=== PATIENT | male | born 1975 | race Caucasian/White ===

== ENCOUNTER 2023-04-19 15:49 | Observation (INO) | payer OTHER ==
--- OUTSIDE RECORDS SUMMARY | 2023-04-19 15:54 | XMS REPORT | Continuity of Care Document ---
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 n 80 mg tablet 2-0 824 00:00: 00 Yes [id number] 80mg Take 1 tablet by mouth at bedtime. [facility] clopidogreL 75 mg tablet 2-0 8-24 00:00: 00 Yes [id number] 9102 75mg Take 1 tablet by mouth in the morning. [facility] atorvastati n 80 mg tablet 2-0 824 00:00: 00 Yes [id number] 80mg Take 1 tablet by mouth at bedtime. [facility] clopidogreL 75 mg tablet 2-0 824 00:00: 00 Yes [id number] 9102 75mg Take 1 tablet by mouth in the morning. [facility] atorvastati n 80 mg tablet 2021-0 824 00:00: 00 Yes [id number] 80mg Take 1 tablet by mouth at bedtime. [facility] clopidogreL 75 mg tablet 2-0 824 00:00: 00 Yes [id number] 9102 75mg Take 1 tablet by mouth in the morning. [facility] atorvastati n 80 mg tablet 2-0 824 00:00: 00 Yes [id number] 80mg Take 1 tablet by mouth at bedtime. [facility] clopidogreL 75 mg tablet 2-0 824 00:00: 00 12-28 00:00 :00 No [id number] 9102 75mg Take 1 tablet by mouth in the morning. [facility] atorvastati n 80 mg tablet 2-0 824 00:00: 00 12-28 00:00 :00 No [id number] 80mg Take 1 tablet by mouth at bedtime. [facility] clopidogreL 75 mg tablet 2-0 824 00:00: 00 12-28 00:00 :00 No [id number] 9102 75mg Take 1 tablet by mouth in the morning. [facility] atorvastati n 80 mg tablet 2-0 824 00:00: 00 12-28 00:00 :00 No [id number] 80mg Take 1 tablet by mouth at bedtime. [facility] metoprolol tartrate 75 mg Tab 8-24 00:00: 00 11-09 00:00 :00 No [id number] 9102 75mg Take 75 mg by mouth 2 (two) times daily. [facility] clopidogreL 75 mg tablet 7-25 00:00: 00 11-11 00:00 :00 No [id number] 9102 75mg Take 1 tablet by mouth in the morning. [facility] clopidogreL 75 mg tablet 7-25 00:00: 00 11-11 00:00 :00 No [id number] 9102 75mg Take 1 tablet by mouth in the morning. [facility] metoprolol tartrate 75 mg Tab 3-24 00:00: 00 11-11 00:00 :00 No [id number] 9102 75mg Take 75 mg by mouth 2 (two) times daily. [facility] metoprolol tartrate 75 mg Tab 3-24 00:00: 00 11-11 00:00 :00 No [id number] 9102 75mg Take 75 mg by mouth 2 (two) times daily. [facility] warfarin 10 mg tablet 12-10 00:00: 00 Yes [id number] 9102 10mg Take 1 tablet by mouth every evening. [facility] warfarin 10 mg tablet 12-10 00:00: 00 Yes [id number] [id number] 10mg Take 1 tablet by mouth every evening. [facility] warfarin 10 mg tablet 12-10 00:00: 00 Yes [id number] 9102 10mg Take 1 tablet by mouth every evening. [facility] warfarin 10 mg tablet 12-10 00:00: 00 12-09 00:00 :00 No [id number] 9102 10mg Take 1 tablet by mouth every evening. [facility] atorvastati n 80 mg tablet 12-08 00:00: 00 11-11 00:00 :00 No [id number] 80mg Take 1 tablet by mouth at bedtime. [facility] atorvastati n 80 mg tablet 920 00:00: 00 11-11 00:00 :00 No [id number] 80mg Take 1 tablet by mouth at bedtime. [facility] nitroglycer in 0.4 mg sublingual tablet 10-14 00:00: [id number] 1 tablet under the tongue every 5 (five) minutes as needed for Chest pain. [facility] nitroglycer in 0.4 mg sublingual tablet 10-14 00:00: [id number] 1 tablet under the tongue every 5 (five) minutes as needed for Chest pain. [facility] nitroglycer in 0.4 mg sublingual tablet 10-14 00:00: [id number] 1 tablet under the tongue every 5 (five) minutes as needed for Chest pain. [facility] nitroglycer in 0.4 mg sublingual tablet 10-14 00:00: [id number] 1 tablet under the tongue every 5 (five) minutes as needed for Chest pain. [facility] nitroglycer in 0.4 mg sublingual tablet 10-14 00:00: [id number] 1 tablet under the tongue every 5 (five) minutes as needed for Chest pain. [facility] nitroglycer in 0.4 mg sublingual tablet 10-14 00:00: [id number] 1 tablet under the tongue every 5 (five) minutes as needed for Chest pain. [facility] nitroglycer in 0.4 mg sublingual tablet 10-14 00:00: [id number] 1 tablet under the tongue every 5 (five) minutes as needed for Chest pain. [facility] nitroglycer in 0.4 mg sublingual tablet 10-14 00:00: [id number] 1 tablet under the tongue every 5 (five) minutes as needed for Chest pain. [facility] nitroglycer in 0.4 mg sublingual tablet 10-14 00:00: [id number] 1 tablet under the tongue every 5 (five) minutes as needed for Chest pain. [facility] nitroglycer in 0.4 mg sublingual tablet 10-14 00:00: [id number] 1 tablet under the tongue every 5 (five) minutes as needed for Chest pain. [facility] nitroglycer in 0.4 mg sublingual tablet 10-14 00:00: [id number] 1 tablet under the tongue every 5 (five) minutes as needed for Chest pain. [facility] nitroglycer in 0.4 mg sublingual tablet 10-14 00:00: [id number] 1 tablet under the tongue every 5 (five) minutes as needed for Chest pain. [facility] nitroglycer in 0.4 mg sublingual tablet 10-14 00:00: [id number] 1 tablet under the tongue every 5 (five) minutes as needed for Chest pain. [facility] nitroglycer in 0.4 mg sublingual tablet 10-14 00:00: [id number] 1 tablet under the tongue every 5 (five) minutes as needed for Chest pain. [facility] nitroglycer in 0.4 mg sublingual tablet 10-14 00:00: [id number] 1 tablet under the tongue every 5 (five) minutes as needed for Chest pain. [facility] nitroglycer in 0.4 mg sublingual tablet 10-14 00:00: [id number] 1 tablet under the tongue every 5 (five) minutes as needed for Chest pain. [facility] nitroglycer in 0.4 mg sublingual tablet 10-14 00:00: [id number] 1 tablet under the tongue every 5 (five) minutes as needed for Chest pain. [facility] nitroglycer in 0.4 mg sublingual tablet 10-14 00:00: [id number] 1 tablet under the tongue every 5 (five) minutes as needed for Chest pain. [facility] nitroglycer in 0.4 mg sublingual tablet 10-14 00:00: [id number] 1 tablet under the tongue every 5 (five) minutes as needed for Chest pain. [facility] nitroglycer in 0.4 mg sublingual tablet 10-14 00:00: [id number] 1 tablet under the tongue every 5 (five) minutes as needed for Chest pain. [facility] Immunizations Ordered Immunization Name Filled Immunization Name Date Status Comments Source Influenza Virus Vaccine Unknown Completed [facility] Influenza Virus Vaccine Unknown Completed [facility] Vital Signs Vital Name Observation Time Observation Value Comments S ource Systolic blood pressure 2022-12-28 20:49:00 115 mm[Hg] [facility] Diastolic blood pressure 2022-12-28 20:49:00 64 mm[Hg] [facility] Heart rate 2022-12-28 20:49:00 74 /min [facility] acute hospital Respiratory rate 2022-12-28 20:49:00 20 /min [facility] Body height 2022-12-28 20:49:00 188 cm [facility] Body weight 2022-12-28 20:49:00 110.133 kg [facility] BMI 2022-12-28 20:49:00 31.17 kg/m2 [facility] Oxygen saturation in Arterial blood by Pulse oximetry 2022-12-28 20:49:00 94 /min [facility] Systolic blood pressure 2022-11-09 21:24:00 119 mm[Hg] [facility] Diastolic blood pressure 2022-11-09 21:24:00 75 mm[Hg] [facility] Heart rate 2022-11-09 21:24:00 58 /min [facility] acute hospital Body temperature 2022-11-09 21:24:00 36.22 [facility] Respiratory rate 2022-11-09 21:24:00 16 /min [facility] Oxygen saturation in Arterial blood by Pulse oximetry 2022-11-09 21:24:00 96 /min [facility] Body weight 2022-11-09 09:19:00 106.459 kg [facility] BMI 2022-11-09 09:19:00 30.13 kg/m2 [facility] Body height 2022-11-08 22:23:00 188 cm [facility] Systolic blood pressure 2022-04-28 21:58:00 130 mm[Hg] [facility] Diastolic blood pressure 2022-04-28 21:58:00 86 mm[Hg] [facility] Heart rate 2022-04-28 21:58:00 72 /min [facility] Body temperature 2022-04-28 21:58:00 36.5 [facility] Respiratory rate 2022-04-28 21:58:00 17 /min [facility] Body height 2022-04-28 21:58:00 188 cm [facility] Body weight 2022-04-28 21:58:00 108.863 kg [facility] BMI 2022-04-28 21:58:00 30.81 kg/m2 [facility] Oxygen saturation in Arterial blood by Pulse oximetry 2022-04-28 21:58:00 94 /min [facility] Systolic blood pressure 2022-01-05 16:56:00 129 mm[Hg] [facility] Diastolic blood pressure 2022-01-05 16:56:00 86 mm[Hg] [facility] Heart rate 2022-01-05 16:56:00 69 /min [facility] Body temperature 2022-01-05 16:56:00 36.22 [facility] Respiratory rate 2022-01-05 16:56:00 18 /min [facility] Oxygen saturation in Arterial blood by Pulse oximetry 2022-01-05 16:56:00 94 /min [facility] Body weight 2022-01-05 09:15:00 110.995 kg [facility] BMI 2022-01-05 09:15:00 31.42 kg/m2 [facility] Body height 2022-01-05 02:13:00 188 cm [facility] Systolic blood pressure 2021-11-11 18:42:00 120 mm[Hg] [facility] Diastolic blood pressure 2021-11-11 18:42:00 81 mm[Hg] [facility] Heart rate 2021-11-11 18:42:00 60 /min [facility] acute hospital Body height 2021-11-11 18:42:00 188 cm [facility] Body weight 2021-11-11 18:42:00 112.492 kg [facility] BMI 2021-11-11 18:42:00 31.84 kg/m2 [facility] Oxygen saturation in Arterial blood by Pulse oximetry 2021-11-11 18:42:00 96 /min [facility] Procedures Procedure Date / Time Performed Performing Clinician Source CONSENT/REFUSAL FOR DIAGNOSIS AND TREATMENT 2022-12-28 20:24:37 Doctor Unassigned, [place] [facility] INSURANCE CORRESPONDENCE 2022-12-10 05:01:00 Doc tor Unassigned, [place] [facility] TRANSTHORACIC ECHO (TTE) COMPLETE W/ CONTRAST 2022-11-09 19:48:14 Maritza Oakley [facility] HB ECG ROUTINE & RHYTHM STRIP 2022-11-09 03:34:45 Neto Lombardo [facility] TROPONIN I 2022-11-09 03:28:00 Neto Lombardo [facility] THYROID STIMULATING HORMONE 2022-11-09 03:28:00 Maritza Oakley [facility] XR CHEST 1 VW 2022-11-08 23:04:00 Arvin Medina [facility] LIPASE 2022-11-08 22:56:00 [facility] TROPONIN I 2022-11-08 22:56:00 [facility] COMP. METABOLIC PANEL (30680) 2022-11-08 22:56:00 Arvin Medina [facility] CBC WITH DIFF 2022-11-08 22:56:00 Arvin Medina [facility] PROTHROMBIN TIME / INR 2022-11-08 22:56:00 Kranthi Medina [facility] ACTIVATED PARTIAL THRMPLAS MICHELLE 2022-11-08 22:56:00 Arvin Medina [facility] CONSENT/REFUSAL FOR DIAGNOSIS AND TREATMENT 2022-11-08 22:19:51 Doctor Unassigned, [place] [facility] CAROTID DUPLEX BILATERAL - BY VASCULAR LAB 2022-01-05 20:02:00 Brittany Ni [facility] MAGNESIUM 2022-01-05 10:08:00 [facility] TROPONIN I 2022-01-05 10:08:00 Brittany Ni [facility] BASIC METABOLIC PANEL (NA, K, CL, CO2, GLUCOSE, BUN, CREATININE, CA) 2022-01-05 10:08:00 Brittany Ni [facility] PHOSPHORUS 2022-01-05 02:30:00 Britt[facility] TROPONIN I 2022-01-05 02:30:00 Brittany Ni [facility] acute hospital EKG-12 LEAD 2022-01-05 01:43:31 Latonya Gilliland [facility] XR CHEST 2 VW 2022-01-04 23:13:28 Latonya Gilliland [facility] TROPONIN I 2022-01-04 22:57:00 Latonya Gilliland [facility] COMP. METABOLIC PANEL ([id number]) 2022-01-04 22:57:00 Latonya Gilliland [facility] CBC WITH DIFF 2022-01-04 22:57:[address] [facility] PROTHROMBIN TIME / INR 2022-01-04 22:57:00 Karley Gilliland [facility] URINALYSIS 2022-01-04 22:57:00 Latonya Gilliland [facility] N-TERMINAL PRO-BNP 2022-01-04 22:57:00 Melia Gilliland [facility] URINE DRUG (IMMUNOASSAY) - COMPREHENSIVE DRUG SCREEN W/O REFLEX 2022-01-04 22:57:00 Latonya Gilliland [facility] CONSENT/REFUSAL FOR DIAGNOSIS AND TREATMENT 2022-01-04 22:28:14 Doctor Unassigned, [place] [facility] Encounters Start Date/Time End Date/Time Encounter Type Admission Type Attending [facility] Care Department Encounter ID Source 2021-01-20 08:46:57 Emergency [facility] [id number] [facility] 2021-01-19 12:13:08 Emergency [facility] [id number] [facility] 2021-01-19 10:30:46 Emergency [facility] [id number] [facility] 2023-03-30 15:40:00 2023-03-30 15:40:00 Outpatient R RICHARD [facility] [id number] [facility] 2022-12-28 15:40:00 2022-12-28 16:04:16 Outpatient R RICHARD [facility] [id number] [facility] 2022-12-28 15:40:00 2022-12-28 16:04:16 Office Visit Richard [facility] 1..840.114 350.1.13.10 4.2.7.2.686 [id number] [facility] 2022-12-28 00:00:00 2022-12-28 00:00:00 Orders Only Doctor Unassigned, [place] [facility] 1..840.114 350.1.13.10 4.2.7.2.686 [id number] [facility] 2022-12-21 13:00:00 2022-12-21 13:00:00 [id number] 2022-12-14 14:30:00 2022-12-14 14:30:00 Outpatient R RICHARD [facility] [id number] [facility] 2022-12-10 00:00:00 2022-12-10 00:00:00 Orders Only Doctor Unassigned, [place] [facility] 1.2.840.114 350.1.13.10 4.2.7.2.686 [id number] [facility] 2022-12-02 00:00:00 2022-12-02 00:00:00 [facility] [id number] [facility] 2022-11-29 00:00:00 2022-11-29 00:00:00 Refill Richard [facility] 1.2.840.114 350.1.13.10 4.2.7.2.686 [id number] [facility] 2022-11-18 00:00:00 2022-11-18 00:00:00 Telephone Richard [facility] 1.2.840.114 350.1.13.10 4.2.7.2.686 [id number] [facility] 2022-11-10 00:00:00 2022-11-10 00:00:00 Patient Secure Msg Doctor Unassigned, [place] [facility] 1.2840.114 350.1.13.10 4.2.7.2.686 [id number] [facility] 2022-11-08 17:26:00 2022-11-09 18:31:00 Outpatient X ALEISHA MCELROY [facility] [id number] [facility] 2022-11-08 17:26:00 2022-11-09 18:31:[address] [facility] 1.2.840.114 350.1.13.10 4.2.7.2.686 [id number] [facility] 2022-06-02 00:00:00 2022-06-02 00:00:00 [facility] 1..840.114 350.1.13.10 4.2.7.2.686 [id number] [facility] 2022-04-28 16:00:00 2022-04-28 16:07:17 Outpatient R KIKO MATUTE [facility] [id number] [facility] 2022-04-28 16:00:00 2022-04-28 16:07:17 Urgent Care Kiko Matute Unknown, Attending [facility]?ASHWINIKarime [facility] 1..840.114 350.1.13.10 4.2.7.2.686 [id number] [facility] 2022-02-16 15:20:00 2022-02-16 15:20:00 [facility] [id number] 2022-02-16 15:20:00 2022-02-16 15:20:00 [facility] [id number] [facility] 2022-01-26 14:30:00 2022-01-26 14:30:00 Outpatient R HIEN LOVETT [facility] [id number] [facility] 2022-01-04 17:38:00 2022-01-05 17:51:00 Outpatient X BRITTANY NI [facility] [id number] [facility] 2022-01-04 17:38:00 2022-01-05 17:51:00 Emergency Latonya Gilliland Yaman [facility] 1..840.114 350.1.13.10 4.2.7.2.686 [id number] [facility] 2021-12-09 00:00:00 2021-12-09 00:00:00 Telephone Richard, [facility] 1..840.114 350.1.13.10 4.2.7.2.686 [id number] [facility] 2021-11-26 00:00:00 2021-11-26 00:00:00 Telephone Richard [facility] 1..840.114 350.1.13.10 4.2.7.2.686 [id number] [facility] 2021-11-19 15:44:58 2021-11-19 23:59:00 Outpatient R RICHARD [facility] [id number] [facility] 2021-11-19 16:00:00 2021-11-19 16:00:00 Outpatient R RICHARD [facility] [id number] [facility] 2021-11-11 14:45:00 2021-11-11 15:00:00 Insolvency Consultant Visit 2, Adc Lab Richard [facility] 1..840.114 350.1.13.10 4.2.7.2.686 [id number] [facility] 2021-11-11 13:40:00 2021-11-11 14:10:06 Outpatient R RICHARD [facility] [id number] [facility] 2021-11-11 13:40:00 2021-11-11 14:10:06 Office Visit Richard [facility] 1..840.114 350.1.13.10 4.2.7.2.686 [id number] [facility] 2021-11-11 09:00:00 2021-11-11 09:15:00 Insolvency Consultant Visit Lab, [facility] 1.2.84.114 350.1.13.10 4.2.7.2.686 [id number] [facility] 2021-11-11 09:00:00 2021-11-11 09:00:00 Outpatient HIEN DAVIES [facility] [id number] [facility] 2021-11-11 08:30:00 2021-11-11 08:51:49 Office Visit Hien Lovett [facility]?LUCIA [facility] 1.84114 350.1.13.10 4.2.7.2.686 [id number] [facility] 2021-11-11 08:30:00 2021-11-11 08:51:49 Outpatient R HIEN LOVETT [facility] [id number] [facility] 2021-11-11 00:00:00 2021-11-11 00:00:00 Orders Only Doctor Unassigned, [place] [facility] 1..114 350.1.13.10 4.2.7.2.686 [id number] [facility] 2021-10-12 00:00:00 2021-10-12 00:00:00 Refill Hien Lovett [facility]IA [facility] 1.84.114 350.1.13.10 4.2.7.2.686 [id number] [facility] 2021-09-16 12:56:00 2021-09-16 15:17:00 Emergency X OREN CALDERA [facility] E[facility] [id number] [facility] 2021-09-16 12:56:00 2021-09-16 15:17:00 Emergency Maritza Callejas Phillip [facility] 1..114 350.1.13.10 4.2.7.2.686 [id number] [facility] 2021-09-16 00:00:00 2021-09-16 00:00:00 Orders Only Doctor Unassigned, [place] [facility] 1.20.114 350.1.13.10 4.2.7.2.686 [id number] [facility] 2021-08-24 00:00:00 2021-08-24 00:00:00 Patient Secure Msg Doctor Unassigned, [place] [facility] 1.2.114 350.1.13.10 4.2.7.2.686 [id number] [facility] 2021-08-22 18:15:00 2021-08-22 21:56:00 Emergency X KULDIP CORONA [facility] ERT [id number] [facility] 2021-08-22 18:15:00 2021-08-22 21:56:00 Emergency Kuldip Corona B [facility] 1.114 350.1.13.10 4.2.7.2.686 [id number] [facility] 2021-06-11 00:00:00 2021-06-11 00:00:00 Patient Secure Msg [facility] Unassigned, [place] [facility] 1.84.114 350.1.13.10 4.2.7.2.686 [id number] [facility] 2021-06-05 00:00:00 2021-06-05 00:00:00 Refill Darlene Palafox [facility] 1.84.114 350.1.13.10 4.2.7.2.686 [id number] [facility] 2021-04-13 00:00:00 2021-04-13 00:00:00 Telephone [facility] [facility] 1.2840.114 350.1.13.10 4.2.7.2.686 [id number] 044 [id number] [facility] 2021-03-25 00:00:00 2021-03-25 00:00:00 Refill Darlene Palafox [facility] MEDICAL OFFICE BUILDING 1.0.114 350.1.13.10 4.2.7.2.686 [id number] [id number] [facility] 2021-01-09 02:47:00 2021-01-09 05:03:00 Emergency Oren [facility] 1.2.114 350.1.13.10 4.2.7.2.686 [id number] [id number] [facility] 2021-01-09 00:00:00 2021-01-09 00:00:00 Orders Only Doctor Unassigned, [place] [facility] 1.840.114 350.1.13.10 4.2.7.2.686 [id number] [id number] [facility] 2020-12-08 15:04:21 2020-12-08 15:19:21 Insolvency Consultant Visit Lab, Klaus - [facility]osh [facility] Medical Office Building 1.114 350.1.13.10 4.2.7.2.686 [id number] [facility] 2020-12-08 14:20:35 2020-12-08 15:04:33 Office Visit Clarisa [facility] Flo?[facility] Medical Office Building 1.2.114 350.1.13.10 4.2.7.2.686 [id number] [facility] 2020-12-08 14:30:00 2020-12-08 14:30:00 Outpatient R GEOFFREY MCKENNA [facility] [id number] [facility] 2020-11-26 00:00:00 2020-11-26 00:00:00 Hien Springer [facility] Luly manzano Medical Office Building 1.84.114 350.1.13.10 4.2.7.2.686 [id number] [facility] 2020-11-25 10:00:00 2020-11-25 10:00:00 Outpatient GISELA GARCÍA [facility] [id number] [facility] 2020-11-22 12:00:00 2020-11-22 12:00:00 Outpatient HIEN DAVIES [facility] [id number] [facility] 2020-11-22 09:47:33 2020-11-22 10:02:33 Insolvency Consultant Visit Po, Adc Lab [facility] 1.84114 350.1.13.10 4.2.7.2.686 [id number] [facility] 2020-11-22 09:47:33 2020-11-22 10:02:33 Insolvency Consultant Visit Po, Adc Lab [facility] 1.114 350.1.13.10 4.2.7.2.686 [id number] [facility] 2020-11-22 00:00:00 2020-11-22 00:00:00 Orders Only Doctor Unassigned, [place] [facility] 1.114 350.1.13.10 4.2.7.2.686 [id number] [id number] [facility] 2020-11-22 00:00:00 2020-11-22 00:00:00 Orders Only Doctor Unassigned, [place] [facility] 1.114 350.1.13.10 4.2.7.2.686 [id number] [facility] 2020-11-21 15:48:30 2020-11-21 16:03:30 Insolvency Consultant Visit Lab, Hien Goldman [facility] Luly manzano Medical Office Building 1.2840.114 350.1.13.10 4.2.7.2.686 [id number] [facility] 2020-11-21 16:00:00 2020-11-21 15:59:00 Outpatient Christopher LOVETT HIEN [facility] [id number] [facility] 2020-11-20 00:00:00 2020-11-20 00:00:00 Telephone Radhika Darlene Schaffer [facility] Office Building One 1.84.114 350.1.13.10 4.2.7.2.686 [id number] [facility] 2020-11-20 00:00:00 2020-11-20 00:00:00 Telephone Radhika Darlene Schaffer [facility] Office Building One 1..114 350.1.13.10 4.2.7.2.686 [id number] 044 [id number] [facility] 2020-11-12 12:08:57 2020-11-12 12:23:57 Insolvency Consultant Visit Pob, Adc Lab Main [facility]Hien [facility] Building 1..114 350.1.13.10 4.2.7.2.686 [id number] [facility] 2020-11-12 12:08:57 2020-11-12 12:23:57 Insolvency Consultant Visit Pob, Adc Lab Main Hien Lov[facility] Building 1.84.114 350.1.13.10 4.2.7.2.686 [id number] [facility] 2020-11-12 11:30:00 2020-11-12 11:30:00 Outpatient R [facility] [id number] [facility] 2020-11-12 11:00:00 2020-11-12 11:00:00 Outpatient R [facility] [id number] [facility] 2020-11-12 00:00:00 2020-11-12 00:00:00 Telephone Hien Lovett [facility] Flo?Lucia manzano Medical Office Building 1.2.840.114 350.1.13.10 4.2.7.2.686 [id number] [id number] [facility] 2020-11-03 13:00:00 2020-11-03 13:00:00 Outpatient R PAULAALMAZHEATHHIEN [facility] [id number] [facility] 2020-10-29 15:07:34 2020-10-29 15:22:34 Insolvency Consultant Visit Pob, Adc Lab Main Lois Bateman [facility] Building 1.2.840.114 350.1.13.10 4.2.7.2.686 [id number] [facility] 2020-10-29 15:00:00 2020-10-29 15:00:00 Outpatient R VERNONLILLIAN LOIS [facility] [id number] [facility] 2020-10-29 14:18:29 2020-10-29 14:48:29 Office Visit Hien Lovett [facility] Office Building One 1.2.840.114 350.1.13.10 4.2.7.2.686 [id number] [facility] 2020-10-29 14:30:00 2020-10-29 14:30:00 Outpatient R BONY HIEN [facility] [id number] [facility] 2020-10-29 08:00:00 2020-10-29 08:00:00 Outpatient R DARLENE PALAFOX [facility] [id number] [facility] 2020-10-29 00:00:00 2020-10-29 00:00:00 Orders Only Doctor Unassigned, [place] [facility] 1.2.840.114 350.1.13.10 4.2.7.2.686 [id number] [facility] 2020-10-18 16:41:00 2020-10-20 15:00:00 Emergency [place], Arvin Nick, Darnell Ly [facility] 1.2.840.114 350.1.13.10 4.2.7.2.686 [id number] [facility] 2020-10-18 00:00:00 2020-10-18 00:00:00 Orders Only Doctor Unassigned, [place] [facility] 1.2.840.114 350.1.13.10 4.2.7.2.686 [id number] [facility] 2020-10-11 08:57:00 2020-10-14 17:00:00 Hospital Encounter Oren Caldera, Jay Aguillon h, Ananya [facility] 1.2.840.114 350.1.13.10 4.2.7.2.686 [id number] [facility] 2020-10-11 00:00:00 2020-10-11 00:00:00 Orders Only Doctor Unassigned, [place] [facility] 1.2.840.114 350.1.13.10 4.2.7.2.686 [id number] [facility] Results Test Description Test Time Test Comments Results Result Co mments Source [facility] [id number] 04:29:13* Test Item Value Reference Range Interpretation Comme nts TROPONIN I (test code = 5644469721) 0.004 ng/mL <=0.034 NING (test code = NING) Reference (Normal) Range (defined by the 99th percentile reference limit): <= 0.034 ng/mL Note: Cardiac troponin begins to rise 3-4 hours after the onset of ischemia. Repeat in 4-6 hours if the sample was drawn within 3-4 hours of the onset of the symptom and found normal. Diagnosis of myocardial injury is made with acute changes in cTn concentrations with at least one serial sample above the 99th percentile upper reference limit (URL), taken together with the patient's clinical presentation. Biotin has been reported to cause a negative bias, interpret results relative to patient's use of biotin. Lab Interpretation (test code = 36283-1) Normal [facility] [id number] 23:42:46* Test Item Value Reference Range Interpretation Comme nts TROPONIN I (test code = 5126461519) 0.003 ng/mL <=0.034 NING (test code = NING) Reference (Normal) Range (defined by the 99th percentile reference limit): <= 0.034 ng/mL Note: Cardiac troponin begins to rise 3-4 hours after the onset of ischemia. Repeat in 4-6 hours if the sample was drawn within 3-4 hours of the onset of the symptom and found normal. Diagnosis of myocardial injury is made with acute changes in cTn concentrations with at least one serial sample above the 99th percentile upper reference limit (URL), taken together with the patient's clinical presentation. Biotin has been reported to cause a negative bias, interpret results relative to patient's use of biotin. Lab Interpretation (test code = 62039-5) Normal [facility] Center[facility]. METABOLIC PANEL ([id number])2022-11-08 23:31:03* Test Item Value Reference Range Interpretation Comme nts NA (test code = 6951021947) 139 mmol/L 135-145 K (test code = 4324233167) 3.8 mmol/L 3.5-5.0 CL (test code = 5188371104) 104 mmol/L 98-108 CO2 TOTAL (test code = 6473602970) 27 mmol/L 23-31 AGAP (test code = 0940739899) 8 2-16 BUN (test code = 8356680750) 29 mg/dL 7-23 H GLUCOSE (test code = 8331748560) 89 mg/dL 70-110 CREATININE (test code = 0477651143) 1.22 mg/dL 0.60-1.25 TOTAL BILI (test code = 6926247751) 0.2 mg/dL 0.1-1.1 CALCIUM (test code = 5850767836) 9.1 mg/dL 8.6-10.6 T PROTEIN (test code = 3698287440) 7.2 g/dL 6.3-8.2 ALBUMIN (test code = 0145101068) 4.4 g/dL 3.5-5.0 ALK PHOS (test code = 5591539167) 85 U/L 34-122 ALTv (test code = 1742-6) 66 U/L 5-50 H AST(SGOT) (test code = 2681566641) 33 U/L 13-40 eGFR (test code = 0866233753) 64.2 mL/min/1.73m2 NING (test code = NING) Association of Glomerular Filtration Rate (GFR) and Staging of Kidney Disease* + --+ --+ ------+| GFR (mL/min/1.73 m2) ?| With Kidney Damage ?| ?Without Kidney Damage+ --------+ --------+ +| ?>90 ?| ?Stage one ?| ? Normal ?+ ---+ ---+ -------+| ?60-89 ?| ?Stage two ?| ? Decreased GFR ? + --+ --+ ------+| ?30-59 ?| ?Stage three ?| ? Stage three ? + --+ --+ ------+| ?15-29 ?| ?Stage four ? | ? Stage four ?+ ---+ ---+ -------+| ?<15 (or dialysis) ? ?| ?Stage five ? | ? Stage five ?+ ---+ ---+ -------+ *Each stage assumes the associated GFR level has been in effect for at least three months. ?Stages 1 to 5, with or without kidney disease, indicate chronic kidney disease. Notes: Determination of stages one and two (with eGFR >59mL/min/1.73 m2) requires estimation of kidney damage for at least three months as defined by structural or functional abnormalities of the kidney, manifested by either:Pathological abnormalities or Markers of kidney damage (including abnormalities in the composition of the blood or urine or abnormalities in imaging tests). Lab Interpretation (test code = 73698-6) Abnormal [facility] 23:31:03* Test Item Value Reference Range Interpretation Comme nts LIPASE (test code = 0445109065) 206 U/L 0-220 Lab Interpretation (test cod e = 30096-6) Normal [facility] CenterACTIV[facility] PARTIAL THRMPLAS [id number] 23:30:02* Test Item Value Reference Range Interpretation Comme nts APTT Patient (test code = 3173-2) 26 See_Comment [Automated message] The system which generated this result transmitted reference range: 23 - 38 Seconds. The reference range was not used to interpret this result as normal/abnormal. NING (test code = NING) The [facility] patient population mean normal value for aPTT is 30 seconds. Lab Interpretation (test code = 08709-5) Normal [facility]PROT[facility] / [id number] 23:28:01* Test Item Value Reference Range Interpretation Comme nts PROTIME PATIENT (test code = 5964-2) 12.4 See_Comment [Automated [employer]] The system which generated this result transmitted reference range: 12.0 - 14.7 Seconds. The reference range was not used to interpret this result as normal/abnormal. INR (test code = 6301-6) 1.0 Normal INR <1.1; Warfarin Therapeutic range 2.0 to 3.0 or 2.5 to 3.5, depending upon the indications. Lab Interpretation (test code = 51799-7) Normal [facility] Center[facility] WITH [id number] 23:21:01* Test Item Value Reference Range Interpretation Comme nts WBC (test code = 6690-2) 7.79 See_Comment [Automated [employer]] The system which generated this result transmitted reference range: 4.20 - 10.70 10*3/?L. The reference range was not used to interpret this result as normal/abnormal. RBC (test code = 789-8) 4.57 See_Comment [Automated [employer]] The system which generated this result transmitted reference range: 4.26 - 5.52 10*6/?L. The reference range was not used to interpret this result as normal/abnormal. HGB (test code = 718-7) 14.7 g/dL 12.2-16.4 HCT (test code = 4544-3) 42.0 % 38.4-49.3 MCV (test code = 787-2) 91.9 fL 81.7-95.6 MCH (test code = 785-6) 32.2 pg 26.1-32.7 MCHC (test code = 786-4) 35.0 g/dL 31.2-35.0 RDW-SD (test code = 51090-2) 45.0 fL 38.5-51.6 RDW-CV (test code = 788-0) 13.3 % 12.1-15.4 PLT (test code = 777-3) 263 See_Comment [Automated messa ge] The system which generated this result transmitted reference range: 150 - 328 10*3/?L. The reference range was not used to interpret this result as normal/abnormal. MPV (test code = 46996-8) 10.5 fL 9.8-13.0 NRBC/100 WBC (test code = 1997685530) 0.0 See_Comment [Automated me ssage] The system which generated this result transmitted reference range: 0.0 - 10.0 /100 WBCs. The reference range was not used to interpret this result as normal/abnormal. NRBC x10^3 (test code = 7412000585) See_Comment [Automated me ssage] The system which generated this result transmitted reference range: 10*3/?L. The reference range was not used to interpret this result as normal/abnormal. GRAN MAT (NEUT) % (test code = 770-8) 55.3 % IMM GRAN % (test code = 1472066980) 0.40 % LYMPH % (test code = 736-9) 31.6 % MONO % (test code = 5905-5) 9.5 % EOS % (test code = 713-8) 2.6 % BASO % (test code = 706-2) 0.6 % GRAN MAT x10^3(ANC) (test code = 4922684031) 4.31 10*3/uL 1.99-6.95 IMM GRAN x10^3 (test code = 1852237702) 0.03 10*3/uL 0.00-0.06 LYMPH x10^3 (test code = 731-0) 2.46 10*3/uL 1.09-3.23 MONO x10^3 (test code = 742-7) 0.74 10*3/uL 0.36-1.02 EOS x10^3 (test code = 711-2) 0.20 10*3/uL 0.06-0.53 BASO x10^3 (test code = 704-7) 0.05 10*3/uL 0.01-0.09 [facility]TR[facility] [id number] 11:09:16* Test Item Value Reference Range Interpretation Comments TROPONIN I (test code = 3084765715) 0.004 ng/mL See_Comment [Automated message] The system which generated this result transmitted reference range: <=0.034. The reference range was not used to interpret this result as normal/abnormal. NING (test code = NING) Reference (Normal) Range (defined by the 99th percentile reference limit): <= 0.034 ng/mL Note: Cardiac troponin begins to rise 3-4 hours after the onset of ischemia. Repeat in 4-6 hours if the sample was drawn within 3-4 hours of the onset of the symptom and found normal. Diagnosis of myocardial injury is made with acute changes in cTn concentrations with at least one serial sample above the 99th percentile upper reference limit (URL), taken together with the patient's clinical presentation. Biotin has been reported to cause a negative bias, interpret results relative to patient's use of biotin. Lab Interpretation (test code = 51593-5) Normal [facility] CenterMagnesium [id number] 11:01:35* Test Item Value Reference Range Interpretation Comme nts MAGNESIUM (test code = 8594504520) 2.2 mg/dL 1.7-2.4 Lab Interpretation (test cod e = 87818-5) Normal [facility] Metabolic Panel (NA, K, CL, CO2, GLUCOSE, BUN, CREATININE, CA)2022-01-05 11:01:15* Test Item Value Reference Range Interpretation Comme nts NA (test code = 8364840478) 138 mmol/L 135-145 K (test code = 7926600097) 3.6 mmol/L 3.5-5 CL (test code = 9811871547) 104 mmol/L 98-108 CO2 TOTAL (test code = 8381268602) 32 mmol/L 23-31 H AGAP (test code = 5106946672) 2-16 BUN (test code = 0236179968) 21 mg/dL 7-23 GLUCOSE (test code = 0168713847) 95 mg/dL 70-110 CREATININE (test code = 0686663079) 1.16 mg/dL 0.6-1.25 CALCIUM (test code = 0301968155) 8.4 mg/dL 8.6-10.6 L eGFR (test code = 1745141733) mL/min/1.73m2 NING (test code = NING) Association of Glomerular Filtration Rate (GFR) and Staging of Kidney Disease* + --+ --+ ------+| GFR (mL/min/1.73 m2) ?| With Kidney Damage ?| ?Without Kidney Damage+ --------+ --------+ +| ?>90 ?| ?Stage one ?| ? Normal ?+ ---+ ---+ -------+| ?60-89 ?| ?Stage two ?| ? Decreased GFR ? + --+ --+ ------+| ?30-59 ?| ?Stage three ?| ? Stage three ? + --+ --+ ------+| ?15-29 ?| ?Stage four ? | ? Stage four ?+ ---+ ---+ -------+| ?<15 (or dialysis) ? ?| ?Stage five ? | ? Stage five ?+ ---+ ---+ -------+ *Each stage assumes the associated GFR level has been in effect for at least three months. ?Stages 1 to 5, with or without kidney disease, indicate chronic kidney disease. Notes: Determination of stages one and two (with eGFR >59mL/min/1.73 m2) requires estimation of kidney damage for at least three months as defined by structural or functional abnormalities of the kidney, manifested by either:Pathological abnormalities or Markers of kidney damage (including abnormalities in the composition of the blood or urine or abnormalities in imaging tests). Lab Interpretation (test code = 71888-6) [facility] [id number] 03:37:22* Test Item Value Reference Range Interpretation Comments TROPONIN I (test code = 9789157981) 0.004 ng/mL See_Comment [Automated message] The system which generated this result transmitted reference range: <=0.034. The reference range was not used to interpret this result as normal/abnormal. NING (test code = NING) Reference (Normal) Range (defined by the 99th percentile reference limit): <= 0.034 ng/mL Note: Cardiac troponin begins to rise 3-4 hours after the onset of ischemia. Repeat in 4-6 hours if the sample was drawn within 3-4 hours of the onset of the symptom and found normal. Diagnosis of myocardial injury is made with acute changes in cTn concentrations with at least one serial sample above the 99th percentile upper reference limit (URL), taken together with the patient's clinical presentation. Biotin has been reported to cause a negative bias, interpret results relative to patient's use of biotin. Lab Interpretation (test code = 02611-1) Normal [facility] CenterPhosphorus [id number] 03:24:20* Test Item Value Reference Range Interpretation Comme nts PHOSPHORUS (test code = 9762161606) 4.3 mg/dL 2.5-5 Lab Interpretation (test cod e = 23880-8) Normal [facility] CenterN-TERMINAL [id number] 00:06:12* Test Item Value Reference Range Interpretation Comme nts NT-proBNP (test code = 4048531915) 40 pg/mL See_Comment [Automated message] The system which generated this result transmitted reference range: <=125. The reference range was not used to interpret this result as normal/abnormal. NING (test code = NING) Biotin has been reported to cause a negative bias, interpret results relative to patient's use of biotin. Lab Interpretation (test code = 41250-8) Normal [facility] CenterTRGR[facility]ENTERNIN [id number] 23:48:06* Test Item Value Reference Range Interpretation Comments TROPONIN I (test code = 7166614497) 0.003 ng/mL See_Comment [Automated message] The system which generated this result transmitted reference range: <=0.034. The reference range was not used to interpret this result as normal/abnormal. NING (test code = NING) Reference (Normal) Range (defined by the 99th percentile reference limit): <= 0.034 ng/mL Note: Cardiac troponin begins to rise 3-4 hours after the onset of ischemia. Repeat in 4-6 hours if the sample was drawn within 3-4 hours of the onset of the symptom and found normal. Diagnosis of myocardial injury is made with acute changes in cTn concentrations with at least one serial sample above the 99th percentile upper reference limit (URL), taken together with the patient's clinical presentation. Biotin has been reported to cause a negative bias, interpret results relative to patient's use of biotin. Lab Interpretation (test code = 20705-8) Normal [facility]. METABOLIC PANEL (88205)2022-01-04 23:38:01* Test Item Value Reference Range Interpretation Comme nts NA (test code = 8390413141) 138 mmol/L 135-145 K (test code = 2200650712) 4.1 mmol/L 3.5-5 CL (test code = 3283635557) 101 mmol/L 98-108 CO2 TOTAL (test code = 6044366163) 29 mmol/L 23-31 AGAP (test code = 0366975352) 2-16 BUN (test code = 0336801537) 18 mg/dL 7-23 GLUCOSE (test code = 4773085071) 100 mg/dL 70-110 CREATININE (test code = 9151128098) 1.15 mg/dL 0.6-1.25 TOTAL BILI (test code = 5362381574) 0.3 mg/dL 0.1-1.1 CALCIUM (test code = 8404092204) 8.8 mg/dL 8.6-10.6 T PROTEIN (test code = 8436380210) 6.4 g/dL 6.3-8.2 ALBUMIN (test code = 1475615655) 4.4 g/dL 3.5-5 ALK PHOS (test code = 6859970241) 93 U/L 34-122 ALTv (test code = 1742-6) 47 U/L 5-50 AST(SGOT) (test code = 0219063117) 29 U/L 13-40 eGFR (test code = 8114080893) mL/min/1.73m2 NING (test code = NING) Association of Glomerular Filtration Rate (GFR) and Staging of Kidney Disease* + + +- +| GFR (mL/min/1.73 m2) ?| With Kidney Damage ?| ?Without Kidney Damage+ ------+ ----+ ------+| ?>90 ?| ?Stage one ?| ? Normal ?+ -+ + -+| ?60-89 ?| ?Stage two ?| ? Decreased GFR ? + + +- +| ?30-59 ?| ?Stage three ?| ? Stage three ? + + +- +| ?15-29 ?| ?Stage four ? | ? Stage four ?+ -+ + -+| ?<15 (or dialysis) ? ?| ?Stage five ? | ? Stage five ?+ -+ + -+ *Each stage assumes the associated GFR level has been in effect for at least three months. ?Stages 1 to 5, with or without kidney disease, indicate chronic kidney disease. Notes: Determination of stages one and two (with eGFR >59mL/min/1.73 m2) requires estimation of kidney damage for at least three months as defined by structural or functional abnormalities of the kidney, manifested by either:Pathological abnormalities or Markers of kidney damage (including abnormalities in the composition of the blood or urine or abnormalities in imaging tests). [facility] CenterPROTHROMBIN TIME / [id number] 23:21:40* Test Item Value Reference Range Interpretation Comme [facility] PROTIME PATIENT (test code = 5964-2) See_Comment L [[employer]] The system which generated this result transmitted reference range: 12.0 - 14.7 Seconds. The reference range was not used to interpret this result as normal/abnormal. INR (test code = 6301-6) Normal INR <1.1; Warfarin Therapeutic range 2.0 to 3.0 or 2.5 to 3.5, depending upon the indications. Lab Interpretation (test code = 25065-8) Abnormal [facility] CenterCBC WITH [id number] 23:17:41* Test Item Value Reference Range Interpretation Comme [facility] WBC (test code = 6690-2) See_Comment [Automated messa ge] The system which generated this result transmitted reference range: 4.20 - 10.70 10*3/?L. The reference range was not used to interpret this result as normal/abnormal. RBC (test code = 789-8) See_Comment [Automated [employer] ge] The system which generated this result transmitted reference range: 4.26 - 5.52 10*6/?L. The reference range was not used to interpret this result as normal/abnormal. HGB (test code = 718-7) 14.3 g/dL 12.2-16.4 HCT (test code = 4544-3) 41.0 % 38.4-49.3 MCV (test code = 787-2) 89.5 fL 81.7-95.6 MCH (test code = 785-6) 31.2 pg 26.1-32.7 MCHC (test code = 786-4) 34.9 g/dL 31.2-35 RDW-SD (test code = 00121-7) 43.0 fL 38.5-51.6 RDW-CV (test code = 788-0) 13.2 % 12.1-15.4 PLT (test code = 777-3) See_Comment [Automated [employer] ge] The system which generated this result transmitted reference range: 150 - 328 10*3/?L. The reference range was not used to interpret this result as normal/abnormal. MPV (test code = 49411-7) 9.7 fL 9.8-13 L NRBC/100 WBC (test code = 8596667489) See_Comment [Automated [employer] ssage] The system which generated this result transmitted reference range: 0.0 - 10.0 /100 WBCs. The reference range was not used to interpret this result as normal/abnormal. NRBC x10^3 (test code = 7390557198) See_Comment [Automated [employer] ge] The system which generated this result transmitted reference range: 10*3/?L. The reference range was not used to interpret this result as normal/abnormal. GRAN MAT (NEUT) % (test code = 770-8) 64.5 % IMM GRAN % (test code = 8605206417) 0.10 % LYMPH % (test code = 736-9) 24.8 % MONO % (test code = 5905-5) 8.1 % EOS % (test code = 713-8) 1.8 % BASO % (test code = 706-2) 0.7 % GRAN MAT x10^3(ANC) (test code = 3912580137) 4.92 10*3/uL 1.99-6.95 IMM GRAN x10^3 (test code = 5766290245) 0-0.06 LYMPH x10^3 (test code = 731-0) 1.89 10*3/uL 1.09-3.23 MONO x10^3 (test code = 742-7) 0.62 10*3/uL 0.36-1.02 EOS x10^3 (test code = 711-2) 0.14 10*3/uL 0.06-0.53 BASO x10^3 (test code = 704-7) 0.05 10*3/uL 0.01-0.09 Lab Interpretation (test code = 90324-2) Abnormal [facility] History and Physical Notes Date/Time Note Provider Source 2022-11-09 07:44:01 O6X8uJvJ3hFgBqD5ch3u 3i2jZ2o1CLpdiSezQAk5tx 8l3Sd9K9d2At/433EbxHb59153-02-70T79:44:01F ormatting of this note is different from the original.Medicine History & PhysicalDate of Service: 11/09/2022 presents from: homeCC: chest painHistory of Present Illness:Rafael Sebastian is a 47 year old male with a PMH of CAD, tobacco abuse who presented to the ED for chest pain.Symptoms started one day ago. 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 He felt sharp, localzied left sided chest pain. Was both sharp and dull. Lasts 10 seconds then goes away. Not associated with exertion. Does have nausea and SOB when it occurs. Pain feels similar to his last coronary event. ROS: Pt denies fever / chills / vomiting / diarrhea / constipation / cough / abdominal pain / dysuria / hematuria / melena / hematochezia / rashes / suicidal or homicidal ideation / All others negativeReview of Hx/Meds:No current facility-administered medications on file prior to encounter. Current Outpatient Medications on File Prior to Encounter Medication Sig Dispense Refill ezetimibe 10 mg tablet Take 1 tablet by mouth in the morning. Recheck fasting lab in 3 months 30 tablet 5 omeprazole (PRILOSEC OTC) 20 mg tablet Take 1 tablet by mouth in the morning. aspirin (ADULT LOW DOSE ASPIRIN) 81 mg EC tablet Take 1 tablet by mouth in the morning. 30 tablet 5 atorvastatin 80 mg tablet Take 1 tablet by mouth at bedtime. 90 tablet 3 clopidogreL 75 mg tablet Take 1 tablet by mouth in the morning. 90 tablet 3 nitroglycerin 0.[address] 1 tablet under the tongue every 5 (five) minutes as needed for Chest pain. 90 tablet 3 I have reviewed the patient's home medicationsPMH: Past Medical History: Diagnosis Date Fracture closed, femur, shaft Myocardial infarction 07/2020 Tobacco abuse 02/19/2018 PSH: has a past surgical history that includes foot debridement (Right, 03/11/2015); ankle orif (Right, 03/11/2015); femur intramedullary nailing (Left, 03/11/2015); closed reduction (Left, 03/11/2015); splint application (Left, 03/11/2015); radius orif (Left, 03/12/2015); and Coronary stent (07/2020). Family Hx: Social History Tobacco Use Smoking status: Some Days Packs/day: 1 Types: Cigarettes Last attempt to quit: 03/21/2021 Years since quittin.6 Smokeless tobacco: Never Substance Use Topics Alcohol use: Yes Comment: few drinks per week Drug use: Not Currently Current Scheduled Medications Current IV Current Facility-Administered Medications: aspirin EC tablet 81 mg, 81 mg, Oral, DAILY, Neto Lombardo MD atorvastatin (LIPITOR) tablet 80 mg, 80 mg, Oral, QHS, Neto Lombardo MD clopidogreL (PLAVIX) 75 mg tablet 75 mg, 75 mg, Oral, DAILY, Neto Lombardo MD ezetimibe (ZETIA) tablet 10 mg, 10 mg, Oral, DAILY, Neto Lombardo MD metoprolol tartrate (LOPRESSOR) tablet 50 mg, 50 mg, Oral, BID, Neto Lombardo MD nitroglycerin (NITROSTAT) sublingual tablet 0.4 mg, 0.4 mg, Sublingual, Q5MIN PRN, Neto Lombardo MD pantoprazole (PROTONIX) EC tablet 40 mg, 40 mg, Oral, DAILY, Neto Lombardo MDObjective:Vitals:Vitals: 11/08/22201411/08/22 2310 11/08/22 2311 11/09/22 0419 BP: 117/70 91/65 102/58 112/66 Pulse: 56 62 61 54 Resp: 20 20 20 Temp: 36.3 ?C (97.4 ?F) 36.4 ?C (97.6 ?F) 36.4 ?C (97.6 ?F) TempSrc: SpO2: 94% 94% 93% Weight: 108 kg (238 lb) 106.5 kg (234 lb 11.2 oz) Height: I/O's:No intake or output data in the 24 hours ending 11/09/22 0744Physical Exam:Constitutional: A&O x3, well-developed, well-nourished, and in no distress. Head: Normocephalic and atraumatic. Eyes: PERRL. Conjunctivae and EOM are normal. Neck: Normal range of motion. Neck supple. No JVD present.Cardiovascular: Normal rate, regular rhythm, normal heart sounds Pulmonary/Chest: Effort normal and breath sounds normal. No respiratory distress. No wheezes, rales or rhonchi. Abdominal: Soft. Bowel sounds are normal. No TTP, non-distended and no masses. No rebound or guarding. Musculoskeletal: Normal range of motion. No edema or tenderness. Lymphadenopathy: No cervical adenopathy. Neurological: A&O x3. No focal deficits. Gait normal. Skin: Skin is warm and dry. No rash noted. No erythema. No pallor. Labs:BMP:BMP NA (mmol/L) Date Value 11/08/2022 139 01/05/2022 138 01/04/2022 138 11/11/2021 140 09/16/2021 138 K (mmol/L) Date Value 11/08/2022 3.8 01/05/2022 3.6 01/04/2022 4.1 11/11/2021 4.5 09/16/2021 3.9 CALCIUM (mg/dL) Date Value 11/08/2022 9.1 01/05/2022 8.4 (L) 01/04/2022 8.8 11/11/2021 9.0 09/16/2021 9.0 CL (mmol/L) Date Value 11/08/2022 104 01/05/2022 104 01/04/2022 101 11/11/2021 106 09/16/2021 101 BUN (mg/dL) Date Value 11/08/2022 29 (H) 01/05/2022 21 01/04/2022 18 11/11/2021 26 (H) 09/16/2021 19 CREATININE (mg/dL) Date Value 11/08/2022 1.22 01/05/2022 1.16 01/04/2022 1.15 11/11/2021 1.04 09/16/2021 0.93 GLUCOSE (mg/dL) Date Value 11/08/2022 89 01/05/2022 95 01/04/2022 100 11/11/2021 105 09/16/2021 95 CO2 TOTAL (mmol/L) Date Value 11/08/2022 27 01/05/2022 32 (H) 01/04/2022 29 11/11/2021 28 09/16/2021 28 CBC:CBCWBC (10*3/?L) Date Value 11/08/2022 7.79 RBC (10*6/?L) Date Value 11/08/2022 4.57 PLT (10*3/?L) Date Value 11/08/2022 263 HGB (g/dL) Date Value 11/08/2022 14.7 HCT (%) Date Value 11/08/2022 42.0 BMP:Hepatic Function PanelALBUMIN (g/dL) Date Value 11/08/2022 4.4 T PROTEIN (g/dL) Date Value 11/08/2022 7.2 TOTAL BILI (mg/dL) Date Value 11/08/2022 0.2 BILI UNCON (mg/dL) Date Value 10/19/2020 0.2 BILI CONJ (mg/dL) Date Value 10/19/2020 0.0 ALT(SGPT) (U/L) Date Value 02/14/2016 56 ALTv (U/L) Date Value 11/08/2022 66 (H) AST(SGOT) (U/L) Date Value 11/08/2022 33 ALK PHOS (U/L) Date Value 11/08/2022 85 Troponin: Recent Labs TROPNI 0.004 I have reviewed all relevant labsImaging:XR CHEST 1 VWResult Date: 11/08/2022Ordering Physician: ARVIN MEDINA Clinical Indication: chest pain Additional Clinical Information: Technical Limitations: None Comparison: None Technique: Portable chest obtained at 1800 hours Findings: There is shallow inspiration. There is a minimal left infrahilar nodular infiltrate. The right lung is clear. Mild left infrahilar nodular groundglass infiltrate. HS: Y END OF REPORT Assessment and plan:Principal Problem: Chest pain, unspecified typeChest PainTroponin negative. EKG reviewed, actually shows 1st degree AV block with ME interval 210ms. Was assessed while he was sleeping. A repeat EKG shows improvement in AV block, but persistent bradycardia-last [facility] 09/2020, jeannette may need outpatient cards followup for stress testing-reduce metoprolol from 75mg BID to 50mg BID-ASA, statin DVT prophylaxis: [facility] Advanced Care Planning ( Z71.89 )Above assessment and plan discussed at length with patient, patient expressed full understanding. Questions and concerns addressed I spent 18 minutes discussing the advance care planning.Advanced Directive Maker: selfLevel of comfort: N/ACode Status: fullTobacco user (Z71.6)Patient counseled at length and Pt expressed full understanding, Time discussed 3 minutesDisposition: admit to obs Signed:Neto Lombardo MD11/09/2022 35879-8Etaurkw and physical jcatMS8413-79-22O71:49:11History and physical noteTXT1.2.840.584805.1.13.104.2.7.2.30075 9|[id number] for patient obne81199-8Onoxobd and physical note[address]TXTX[address]75[address]USUSGA VMTQMNELPWLQMUVT9481-42-35F87:49:111.2.840 .742772.1.72.3.15|1.2.840.611695.1.13.104. 2.7.2.727879_[id number] [facility] Notes Date/Time Note Provider Source 2022-11-29 12:58:58 OOWN7FZMw0+6eetTXrVo GaruwUIzj4l Dwou1821EkKmMqxbYomMqPSQcJcEUCd Xh7735-98-46I85:58:58 Patient called stating that he is needing a refill on Ezetimibe and Metoprolol. He is aware he is due for a f/u appt for medication refills but is needing his medications sent to the [facility] pharmacy. He is scheduled for 12/28/2022 with [facility] for a f/u appt. Please advise. 27939-9Zaaefkphn encounter MqmgOG9797-53-18V06:02:43Teleph one encounter NoteTXT1.2.840.853549.1.13.104. 2.7.2.333410|[id number] ble for patient htgx12490-6OzlmRTFQACBTRJ23 [address] StreetTXTX[address] 05781JMBDWNQQBLXPJEIADYEIQF7307 -09-11T13:02:431.2.840.193242.1 .72.3.15|1.2.840.038730.1.13.10 4.2.7.2.727879_[id number] [facility] 2022-11-26 11:14:33 FLHzNDQ6e/XPt5sYgU0E C1HpUdZ1toU krYa1GJsIIu0pwTd3O6uuJq/eO+OyS+ g91055-44-02G21:14:33 Contacted pt on 11/26/22 to schedule DSE, no answer, [facility]. I will contact pt again this afternoon to try to schedule. 09175-8Bthxswqgj encounter XngyYD9838-49-31O41:16:07Teleph one encounter NoteTXT1.2.840.894873.1.13.104. 2.7.2.997787|[id number] [facility] mjqn74065-7TyeyQQ794250008Uecpe yvette Beckman[address] CtulNskmggwpiDpfhkzknsZLYR96849 94393VTIOGPKPDOCZBMXKDHTPWG1906 -09-08T11:16:071.2.840.373950.1 .72.3.15|1.2.840.562757.1.13.10 4.2.7.2.727879_[id number] Tip Hunt [facility] 2022-11-25 22:05:07 ACKm1rsHFxPjrwyqzSWD NcL4/REMCmj jZdWYmjcGW98p4NJhXRhISRr1jmkCCU ID6947-79-91T06:05:07 Addended by: QUENTIN GONZALEZ MD on: 11/25/2022 10:05 PM Modules accepted: Orders 51115-7Hrhrimtr OphjkxolGE3845-32-94T58:05:07Ad dendum DocumentTXT1.2.840.256328.1.13. 104.2.7.2.186930|[id number] ailable for patient atlc68412-9RsvrAWEEWNJHXZ[address]TXTX[address] 96465VQMELWYRMUYCSXRSXRDSCN2939 -09-07T22:05:071.2.840.984030.1 .72.3.15|1.2.840.048897.1.13.10 4.2.7.2.727879_[id number] [facility] 2022-11-18 22:28:42 6I2XlFw978BjTeAUjLDp keIDQbOGepP GL3q85ioATJqzjiAw1XlDoBto4RDOln ED3249-25-48X16:28:42 The patient was seen in the hospital for chest pain. We will schedule Lexiscan nuclear stress test to assess ischemia. =The patient cannot afford nuclear stress test. Switch to dobutamine stress echo. 26539-7Vqlanabeo encounter IxbcWK6526-46-14M42:05:03Teleph one encounter NoteTXT1.2.840.291469.1.13.104. 2.7.2.968961|[id number] ble for patient lwmt42601-6KhaiNZMJROQCSF[address]TXTX[address] 39019BNLDSVKODWBAPONDPBVHPE2515 -09-07T22:05:031.2.840.863118.1 .72.3.15|1.2.840.904500.1.13.10 4.2.7.2.727879_[id number] [facility] 2022-11-09 18:32:09 Q2P4rzB9Ki1hM6pBKBFz 6np2JrlNbvU OXasG1ooTSr3Li98fGk+x4uN8PcWSnn GP1448-82-00S76:32:09Summary: RN ASHLEY note Patient dc'd. Patient alert and oriented times 4; ambulatory without assistance at time of dc patient verbalized understanding of all dc info. Patient requested to ambulate downstairs to his personal vehicle to go home. Work note provided to pt to return to work tomorrow without limitations per sandhya lewis. 55052-9Kkkym DapnIO4605-96-72J05:35:32Nurse NoteTXT1.2.840.152835.1.13.104. 2.7.2.188239|[id number] ble for patient veov14298-1AheqOD212666144Pwirp gh B Vanier RN[address] CucnTdprzmlxlHvcnbhqzeJIJS91690 76574ZEWXWWFFPLHTFBBRSSKTYF8908 -08-22T18:35:321.2.840.670874.1 .72.3.15|1.2.840.368857.1.13.10 4.2.7.2.727879_[id number] Peyton Costa RN [facility] 2022-11-09 18:16:24 +rvr2GqK8cwhuz0edh8t gi6OWl8RQlK 81tE8WFsKu5jE4NpgvaDB7SWeW+y6Yl Wr9851-16-74B99:16:24 Problem: Venous Thromboembolism, (actual or risk of)Goal: Absence of venous thromboembolism (Risk)11/09/2022 181 by Peyton Costa RNOutcome: Adequate for discharge11/09/2022 1344 by Peyton Costa RNOutcome: Progressing as expected Problem: Discharge PlanningGoal: Adequate for discharge11/09/2022 181 by Peyton Costa RNOutcome: Adequate for discharge11/09/2022 1344 by Peyton Costa RNOutcome: Progressing as expectedGoal: Knowledge of medication management11/09/20221815 by Peyton Costa RNOutcome: Adequate for discharge11/09/2022 1344 by Peyton Costa RNOutcome: Progressing as expected Problem: Cardiac Output - DecreasedGoal: Absence of signs and symptoms of decreased cardiac output11/09/20221815 by Peyton Costa RNOutcome: Adequate for discharge11/09/2022 1344 by Peyton Costa RNOutcome: Progressing as expected Problem: Falls, Risk ofGoal: Absence of falls11/09/20221815 by Peyton Costa RNOutcome: Adequate for discharge11/09/2022 1344 by Peyton Costa RNOutcome: Progressing as expected Problem: PainGoal: Control of pain at or below patient's documented comfort goal11/09/20221815 by Peyton Costa RNOutcome: Adequate for discharge11/09/2022 1344 by Peyton Costa RNOutcome: Progressing as expectedGoal: Reduction in pain sensation11/09/20221815 by Peyton Costa RNOutcome: Adequate for discharge11/09/2022 1344 by Peyton Costa RNOutcome: Progressing as expected Problem: Skin integrity Impaired (Risk or Actual)Goal: Prevention of new skin breakdown11/09/20221815 by Peyton Costa RNOutcome: Adequate for discharge11/09/2022 1344 by Peyton Costa RNOutjael: Progressing as expected Problem: Tissue Perfusion, Cardiopulmonary - AlteredGoal: Circulatory function within specified parameters11/09/20221815 by Peyton Costa RNOutcome: Adequate for discharge11/09/2022 1344 by Peyton Costa RNOutcome: Progressing as expected 28446-1Fuyw of care jjdtCD8889-65-32U45:16:27Plan of care noteTXT1.2.840.483962.1.13.104. 2.7.2.611569|[id number] ble for patient uqmb98691-6PvrhVPGIMJXIRD[address] WklaMflxqeeslIdpisismxNZQF33598 54153PWLZIVIWFZMUMFCDCQTYNW1531 -08-22T18:16:271.2.840.434880.1 .72.3.15|1.2.840.489002.1.13.10 4.2.7.2.727879_[id number] [facility] 2022-11-09 13:44:45 wJ91zkh8IGCmrimEtVwo pQ3zGEqXQCo /tEpMAUrOoFN5+UgEIRzmg7Qjx1DQkd /k5417-42-79R62:44:45 Problem: Venous Thromboembolism, (actual or risk of)Goal: Absence of venous thromboembolism (Risk)Outcome: Progressing as expected Problem: Discharge PlanningGoal: Adequate for dischargeOutcome: Progressing as expectedGoal: Knowledge of medication managementOutcome: Progressing as expected Problem: Cardiac Output - DecreasedGoal: Absence of signs and symptoms of decreased cardiac outputOutcome: Progressing as expected Problem: Falls, Risk ofGoal: Absence of fallsOutcome: Progressing as expected Problem: PainGoal: Control of pain at or below patient's documented comfort goalOutcome: Progressing as expectedGoal: Reduction in pain sensationOutcome: Progressing as expected Problem: Skin integrity Impaired (Risk or Actual)Goal: Prevention of new skin breakdownOutcome: Progressing as expected Problem: Tissue Perfusion, Cardiopulmonary - AlteredGoal: Circulatory function within specified parametersOutcome: Progressing as expected 65319-8Xfya of care tqexRS5756-75-33G84:44:48Plan of care noteTXT1.2.840.899817.1.13.104. 2.7.2.363649|[id number] ble for patient naej31619-4GgcnDRRWUIHCZJ[address] MtdiXprkytoogDwtypurdeXBNT[address] 11313QPTALFILIHCWEGHEBKLRJC3167 -08-22T13:44:481.2.840.905610.1 .72.3.15|1.2.840.234946.1.13.10 4.2.7.2.727879_[id number] [facility] 2022-11-08 21:25:40 jnyJIzVU4gT7TTs7RDWR 4C/jXCWHzgm xJCaBU4/62u9aUtjMz+RQrqJ6YGWPOE Rb5141-31-01Q00:25:40 Problem: Venous Thromboembolism, (actual or risk of)Goal: Absence of venous thromboembolism (Risk)Outcome: Progressing as expected Problem: Discharge PlanningGoal: Adequate for dischargeOutcome: Progressing as expectedGoal: Knowledge of medication managementOutcome: Progressing as expected Problem: Cardiac Output - DecreasedGoal: Absence of signs and symptoms of decreased cardiac outputOutcome: Progressing as expected Problem: Falls, Risk ofGoal: Absence of fallsOutcome: Progressing as expected Problem: PainGoal: Control of pain at or below patient's documented comfort goalOutcome: Progressing as expectedGoal: Reduction in pain sensationOutcome: Progressing as expected Problem: Skin integrity Impaired (Risk or Actual)Goal: Prevention of new skin breakdownOutcome: Progressing as expected Problem: Tissue Perfusion, Cardiopulmonary - AlteredGoal: Circulatory function within specified parametersOutcome: Progressing as expected 23586-4Uwez of care jxpbMO1205-63-93F23:25:42Plan of care noteTXT1.2.840.107914.1.13.104. 2.7.2.827721|[id number] ble for patient tlgc35916-1SilwEQ829162834Qeeca E Gillispie RNUT[address]TXTX[address] 86256RNVATDUXMGHZARJHIRNCNJ8376 -08-21T21:25:421.2.840.430218.1 .72.3.15|1.2.840.372463.1.13.10 4.2.7.2.727879_[id number] Roselyntati Nielson RN [facility] 2022-11-08 20:06:13 BNkYmUnUGYi1VwmUGsrt tMdNNSohIpE 89zNEctOHQ8/JMQjZTjPVaFOdiaCKog yq4852-81-33M62:06:13 Patient admitted to med/surg for diagnosis of chest painPatient agrees to admission, discussed plan of care with patient and family.Patient is awake, alert, oriented, resp reg unlabored, color appropriate for race, PIV intact No adverse reaction to medications administered while in EDBelongings with patient to unitReport to Zhane JOSEPH 09502-3Fpprichoc department AfvuXY4942-11-31S50:07:01Emerge mny department NoteTXT1.2.840.438349.1.13.104. 2.7.2.556366|[id number] ble for patient ineq40816-2DzkeFF085308629Goohh na A Diaz RN[address] StreetTXTX[address] 52598XYAMVEKFWWGRCRXSSIQJHV9123 -08-21T20:07:011.2.840.371299.1 .72.3.15|1.2.840.647843.1.13.10 4.2.7.2.727879_[id number] Juani Marley RN [facility] 2022-11-08 17:26:57 psfhTIskLuPJF44c2nC7 UtGUKHKUAYO 5T7hMAUY4ej2NSR2QOwn4EXotQDy42b Io0213-42-32V32:26:57 EKG in progress. 67835-9Eqzacmfii department SveuKP8864-07-03J29:27:04Emerge [facility] department NoteTXT1.2.840.447299.1.13.104. 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 Denies cough, fever, chills. Reports SOB. 92879-2Hwjgdmlye department Triage zhvaWK1564-64-02O87:23:03[facility] Triage noteTXT1.2.840.326466.1.13.104. 2.7.2.070737|[id number] ble for patient xgcc73226-0Zqckkcsac department EwtgBM472934543Sqvoc N Dewoody [address]GalvestonGalvestonTXTX[address] 85654BQRANNCQHVDNKDBMCUMWPP4185 -08-21T17:23:031.2.840.729335.1 .72.3.15|1.2.840.441115.1.13.10 4.2.7.2.727879_[id number] Elizabet Chang RN [facility] 2022-11-08 17:17:00 BYKv3Hf9rIOjymwJmry9 rKAkl7MhuLQ nRKh7e9EdWaCGJuAuIwZsJEQ8Rs5/xb dq3849-64-62R43:17:00 [facility]Patient Name[facility] Rafael Sheffieldate of : 1975 47 year oldMRN: [id number] Room:[address] Physician[facility]nardEl [facility] Patient Escorted by: Family [5]Mode of Arrival: Personal means [1]EMS Treatment Prior to ED Arrival: SPICE CLEANER treatment: None ED Events Date/Time Event User Comments 11/08/22 173 Medical Screening Begins ARVIN MEDINA MD -- 11/08/221729 First Provider Evaluation ARVIN MEDINA MD -- Chief Complaint Chief Complaint Patient presents with Chest Pain ED Triage Notes Elizabet Chang RN 11/08/2022 17:23 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 Denies cough, fever, chills. Reports SOB. HPI The patient is a 47-year-old gentleman who presents for right-sided chest pressure. He notes that he had an [place] 2 years ago and the symptoms are quite similar. He admits to shortness of breath but denies diaphoresis. Of note, he does use tobacco and currently has 2 cardiac stents. He states right now that his pain is a 7 out of 10. He presents for evaluation.History provided by: PatientChest PainPain location: R chestPain quality: pressure Pain radiates to: Mid backPain severity: ModerateOnset quality: GradualTiming: IntermittentProgression: Waxing and waningChronicity: NewRelieved by: NothingWorsened by: NothingAssociated symptoms: no abdominal pain, no cough, no dizziness, no fatigue, no fever, no headache, no nausea, no palpitations, no shortness of breath and no vomiting Risk factors: coronary artery disease and smoking Past Medical History / Immunizations Past Medical History: Diagnosis Date Fracture closed, femur, shaft Myocardial infarction 07/2020 Tobacco abuse 02/19/2018 Tetanus received in last 5 years: Unknown Past Surgical History Past Surgical History: Procedure Laterality Date ANKLE ORIF Right 03/11/2015 Surgeon: Alexander Han MD; [facility] CLOSED REDUCTION Left 03/11/2015 Surgeon: Alexander Han MD; [facility] CORONARY STENT 07/2020 LAD and OM FEMUR INTRAMEDULLARY NAILING Left 03/11/2015 Surgeon: Alexander Hna MD; [facility] FOOT DEBRIDEMENT Right 03/11/2015 Surgeon: Alexander Han MD; [facility] RADIUS ORIF Left 03/12/2015 Surgeon: Rodriguez Robert MD; [facility] SPLINT APPLICATION Left 03/11/2015 Surgeon: Alexander Han MD; [facility] Allergies No Known AllergiesSocial History Tobacco Use Some Days; Cigarettes: Last attempted to quit 03/21/2021; 1.00 packs/day Smokeless Tobacco: Never used smokeless tobacco. Tobacco Cessation: Ready to quit: No; Counseling given: Yes Alcohol Use Yes. Comments: few drinks per week Drug Use Not Currently. Sexual Activity Sexually active; Partners: Female. Review of Systems Review of Systems Constitutional: Negative. Negative for chills, fatigue, fever and unexpected weight change. HENT: Negative. Eyes: Negative. Negative for discharge and itching. Respiratory: Negative. Negative for cough, chest tightness, shortness of breath and wheezing. Cardiovascular: Positive for chest pain. Negative for palpitations. Gastrointestinal: Negative. Negative for abdominal distention, abdominal pain, nausea and vomiting. Genitourinary: Negative. Negative for dysuria, urgency, frequency and flank pain. Musculoskeletal: Negative. Skin: Negative. Negative for color change, pallor and wound. Neurological: Negative. Negative for dizziness, syncope, light-headedness and headaches. Psychiatric/Behavioral: Negative. Negative for agitation and behavioral problems. All other systems reviewed and are negative.Endocrine: Endocrine negativePhysical Exam ED Triage Vitals [11/08/22 1723] Weight 106.6 kg (235 lb) Actual or estimated Estimated by patient/family report Height 1.88 m (6' 2") BP 120/78 Pulse 67 Resp 14 Temp 36.8 ?C (98.2 ?F) Temp source Oral SpO2 95 % Measured on Room air Physical ExamVitals reviewed. Constitutional: Appearance: He is well-developed. HENT: Head: Normocephalic and atraumatic. Nose: Nose normal. Eyes: Conjunctiva/sclera: Conjunctivae normal. Neck: Trachea: No tracheal deviation. Cardiovascular: Rate and Rhythm: Normal rate and regular rhythm. Heart sounds: Normal heart sounds. No murmur heard. No friction rub. Pulmonary: Effort: Pulmonary effort is normal. No respiratory distress. Breath sounds: Normal breath sounds. No stridor. No wheezing or rales. Abdominal: General: Bowel sounds are normal. There is no distension. Palpations: Abdomen is soft. Tenderness: There is no abdominal tenderness. There is no guarding or rebound. Musculoskeletal: General: Normal range of motion. Cervical back: Normal range of motion and neck supple. Skin: General: Skin is warm and dry. Neurological: Mental Status: He is alert and oriented to person, place, and time. Cranial Nerves: No cranial nerve deficit. Sensory: No sensory deficit. Psychiatric: Behavior: Behavior normal. Labs Lab Results COMP. METABOLIC PANEL (74918) - Abnormal Result Value Ref Range NA 139 135 - 145 mmol/L K 3.8 3.5 - 5.0 mmol/L CL 104 98 - 108 mmol/L CO2 TOTAL 27 23 - 31 mmol/L AGAP 8 2 - 16 BUN 29 (*) 7 - 23 mg/dL GLUCOSE 89 70 - 110 mg/dL CREATININE 1.22 0.60 - 1.25 mg/dL TOTAL BILI 0.2 0.1 - 1.1 mg/dL CALCIUM 9.1 8.6 - 10.6 mg/dL T PROTEIN 7.2 6.3 - 8.2 g/dL ALBUMIN 4.4 3.5 - 5.0 g/dL ALK PHOS 85 34 - 122 U/L ALTv 66 (*) 5 - 50 U/L AST(SGOT) 33 13 - 40 U/L eGFR 64.2 mL/min/1.73m2 ACTIVATED PARTIAL THRMPLAS MICHELLE - Normal APTT Patient 26 23 - 38 Seconds PROTHROMBIN TIME / INR - Normal PROTIME PATIENT 12.4 12.0 - 14.7 Seconds INR 1.0 LIPASE - Normal LIPASE 206 0 - 220 U/L TROPONIN I - Normal TROPONIN I 0.003 <=0.034 ng/mL CBC WITH DIFF WBC 7.79 4.20 - 10.70 10*3/?L RBC 4.57 4.26 - 5.52 10*6/?L HGB 14.7 12.2 - 16.4 g/dL HCT 42.0 38.4 - 49.3 % MCV 91.9 81.7 - 95.6 fL MCH 32.2 26.1 - 32.7 pg MCHC 35.0 31.2 - 35.0 g/dL RDW-SD 45.0 38.5 - 51.6 fL RDW-CV 13.3 12.1 - 15.4 % PLT 263 150 - 328 10*3/?L MPV 10.5 9.8 - 13.0 fL NRBC/100 WBC 0.0 0.0 - 10.0 /100 WBCs NRBC x10^3 <0.01 10*3/?L GRAN MAT (NEUT) % 55.3 % IMM GRAN % 0.40 % LYMPH % 31.6 % MONO % 9.5 % EOS % 2.6 % BASO % 0.6 % GRAN MAT x10^3(ANC) 4.31 1.99 - 6.95 10*3/uL IMM GRAN x10^3 0.03 0.00 - 0.06 10*3/uL LYMPH x10^3 2.46 1.09 - 3.23 10*3/uL MONO x10^3 0.74 0.36 - 1.02 10*3/uL EOS x10^3 0.20 0.06 - 0.53 10*3/uL BASO x10^3 0.05 0.01 - 0.09 10*3/uL Imaging XR CHEST 1 VW Final Result Ordering Physician: ARVIN MEDINA Clinical Indication: chest pain Additional Clinical Information: Technical Limitations: None Comparison: None Technique: Portable chest obtained at 1800 hours Findings: There is shallow inspiration. There is a minimal left infrahilar nodular infiltrate. The right lung is clear. IMPRESSION Mild left infrahilar nodular groundglass infiltrate. HS: Y END OF REPORT Orders and Treatments Orders Placed This Encounter Procedures XR CHEST 1 VW CBC WITH DIFF ACTIVATED PARTIAL THRMPLAS MICHELLE PROTHROMBIN TIME / INR COMP. METABOLIC PANEL (27311) LIPASE TROPONIN I TROPONIN I Orders Placed This Encounter Medications nitroglycerin (NITROSTAT) sublingual tablet 0.4 mg acetaminophen (TYLENOL) tablet 975 mg aspirin tablet 325 mg Procedures EKGTime 1726Rate 66Normal sinusLow voltageAxis normalIntervals normalNo acute ischemiaNotes & MDM Patient was evaluated for an emergency medical condition related to Chest PainDDXMIUnstable AnginaNSTEMIHistory and/or review of systems is limited by:History limited: None.Diagnosis/Impression as of 11/09/22 0035 Chest pain, unspecified type Medical Decision MakingProblems Addressed:Chest pain, unspecified type: acute illness or injuryAmount and/or Complexity of Data ReviewedLabs: ordered. Decision-making details documented in ED Course.Radiology: ordered and independent interpretation performed. Decision-making details documented in ED Course.ECG/medicine tests: ordered and independent interpretation performed. Decision-making details documented in ED Course.RiskOTC drugs.Prescription drug management.Limitations to patient care and compliance: none.Assessment/Summary:The patient is a 47-year-old gentleman with a history of coronary disease with 2 stents who presents with chest pressure. He also admits to smoking as well. He states 2 years ago he had similar pain in which at that time he had an [place]. He states throughout the day he has had weakness and intermittent chest pain and shortness of breath. He denies diaphoresis. EKG here in the emergency department does not demonstrate a STEMI or any ectopy. Hematological studies are within acceptable limits. Laboratory evaluation is a with an acceptable limits. Troponin is negative. The patient had some relief with nitroglycerin sublingual. He was also given aspirin. The patient will be admitted to the medicine service for rule out.History, physical exam findings, results of visit, differential diagnosis, medication regimens and plan of future care have been considered. Additional MDM may be found in the ED course. Differential diagnosis considered and final disposition made based on information gathered during evaluation and may not be completely ruled out or specifically listed. Vital signs were rechecked before final disposition.Diagnosis Final diagnoses: [R07.9] Chest pain, unspecified type (Primary) Disposition & Follow Up ED Disposition ED Disposition Admit - Observation Condition -- Comment Is (or was) this a planned re-admission?: No Treatment Team: [facility] [[id number]] Is this patient COVID positive or a patient under investigation (PUI)?: No Current Discharge Medication List STOP taking these medications ezetimibe 10 mg tablet Comments: Reason for Stopping: omeprazole (PRILOSEC OTC) 20 mg tablet Comments: Reason for Stopping: aspirin (ADULT LOW DOSE ASPIRIN) 81 mg EC tablet Comments: Reason for Stopping: atorvastatin 80 mg tablet Comments: Reason for Stopping: clopidogreL 75 mg tablet Comments: Reason for Stopping: metoprolol tartrate 75 mg Tab Comments: Reason for Stopping: nitroglycerin 0.4 mg sublingual tablet Comments: Reason for Stopping: Arvin Medina Jr. MDClinical Counselor/Art Therapist [facility] Emergency DepartmentDragon Dictation Software is used frequently and may produce errors. Promptly contact for obvious discrepancies. Arvin Medina MD11/09/22 0036 [id number] Emergency department [id number]:36:54Physic yuko Emergency department [id number]. [id number] ble for patient [id number] department NoteLN[address] VzjgTcxvwlhdwBbbtjqfluIZHS76663 [id number] -08-22T00:36:541.2.840.682094.1 .72.3.15|1.2.840.375129.1.13.10 [id number] [facility] 2022-11-08 17:17:00 [id number] PhZeUAuLDfY [id number]+xlu tp4605-57-16E38:17:00 AdmissionCareGuideline : Chest Pain - OBS, ObservationBased on the indications selected for the patient, the bed status of Admit to Observation was determined to be METThe following indications were selected as present at the time of evaluation of the patient: Chest pain (or other anginal equivalent) not classified as low risk for acute coronary syndrome, as indicated by 1 or more of the following:- - Patient classified as intermediate risk or high risk for acute coronary syndrome (eg, via use of a clinical decision tool or risk calculator (eg, HEART score greater than 3))AdmissionCare documentation entered by: Arvin MedinaPremier Health Atrium Medical Center, 27th edition, Copyright 2022 [facility] [place] [employer] [facility] All Rights Reserved. [id number]:35:32-05:00Electr onically signed by Arvin Medina MD at 11/09/2022 12:35 AM [id number] Admission [id number] .[id number] :35:33EC Admission [id number]. [id number] ailable for patient [id number] ToydUhceiwnkeWbwluozcjCKEY[address] 56891TUEPCWPBOLLFACFCROLHDB1769 -08-22T00:35:331.2.840.679667.1 .72.3.15|1.2.840.953320.1.13.10 [id number] [facility]
[2023-04-19] MEDS ORDERED: ASPIRIN 81 MG CHEWABLE TABLET ONE (16:09)
[2023-04-19 16:28] LABS: Absolute Lymphocytes (CBC) 2.2 K/uL (0.7-4.9); Hematocrit 40.5 % (39.6-49.0); Lymphocytes % 28.1 % (15.3-44.8); MPV 8.2 fL (7.6-11.3); Platelets 221 thou/uL (152-406); RBC Red Blood Cell Count 4.45 M/uL (4.33-5.43)
[2023-04-19 16:46] LABS: Albumin 3.9 g/dL (3.4-5.0); Bilirubin Direct 0.1 mg/dL (0-0.2); Bilirubin Indirect, Calculated 0.2 mg/dL (0.2-0.8); Bilirubin Total 0.3 mg/dL (0.2-1.0); Magnesium 1.8 mg/dL (1.6-2.4); Potassium 3.6 mEq/L (3.5-5.1); Protein, Total 6.9 g/dL (6.4-8.2); Troponin High Sensitivity 3.3 pg/mL (<58.9)
--- NOTE | 2023-04-19 17:26 | RAD REPORT ---
EXAM DESCRIPTION: RAD - Chest Single View - 04/19/2023 4:42 pm CLINICAL HISTORY: CHEST PAIN Chest pain. COMPARISON: No comparisons FINDINGS: Portable technique limits examination quality. Interstitial markings are mildly prominent. This may indicate interstitial pneumonia or mild intersti tial pulmonary edema. The heart is mildly prominent size No displaced fractures.
--- NOTE | 2023-04-19 17:53 | ER ---
Nurse's Notes [facility] Name: Rafael Pulido Age: 47 yrs Sex: Male : 1975 Arrival Date: 04/19/2023 Time: 15:49 Bed 6 Private MD: Diagnosis: Chest pain, unspecified Presentation: 04/19 15:58 Chief complaint: Patient states: Pt c/o sudden onset of non-radiating, non-reproducible tl4 left side chest pressure/squeezing that is now resolved. Pt also c/o diaphoresis, nausea, lightheadedness. Pt states pain feels like his previous DC. Coronavirus screen: At this time, the client does not indicate any symptoms associated with coronavirus-19. Ebola Screen: No symptoms or risks identified at this time. Initial Sepsis Screen: Does the patient meet any 2 criteria? No. Patient's initial sepsis screen is negative. Does the patient have a suspected source of infection? No. Patient's initial sepsis screen is negative. Risk Assessment: Do you want to hurt yourself or someone else? Patient reports no desire to harm self or others. Onset of symptoms was April 19, 2023. 15:58 Method Of Arrival: Ambulatory tl4 15:58 Acuity: DIVYA 2 tl4 Triage Assessment: 16:03 General: Appears distressed, uncomfortable, Behavior is calm, cooperative. Pain: Denies tl4 pain. EENT: No deficits noted. No signs and/or symptoms were reported regarding the EENT system. Neuro: No deficits noted. Cardiovascular: Chest pain is denied radiates none pt had squeezing pressure in left chest, now resolved. Respiratory: No deficits noted. Denies cough, shortness of breath. GI: Reports nausea. : No deficits noted. No signs and/or symptoms were reported regarding the genitourinary system. Derm: No deficits noted. No signs and/or symptoms reported regarding the dermatologic system. Historical: - Allergies: 16:01 NKA; tl4 - PMHx: 16:01 Depression; Myocardial infarction; tl4 - PSHx: 16:01 Stented artery; tl4 - Immunization history:: Adult Immunizations unknown. - Social history:: Smoking status: Patient reports the use of cigarette tobacco products, smokes one pack cigarettes per day. Screenin:15 [facility] ED Fall Risk Assessment (Adult) History of falling in the last 3 months, ko1 including since admission No falls in past 3 months (0 pts) Confusion or Disorientation No (0 pts) Intoxicated or Sedated Yes (3 pts) Impaired Gait No (0 pts) Mobility Assist Device Used No (0 pt) Altered Elimination No (0 pt) Score/Fall Risk Level 0 - 2 = Low Risk Oriented to surroundings, Maintained a safe environment, Educated pt \T\ family on fall prevention, incl call for assistance when getting out of bed, Assessed \T\ reinforced patient's understanding of fall precautions, Provided non-skid footwear, Hourly rounding (assess needs \T\ fall precautionary measures) done, Used ambulatory aids as needed (educated on \T\ assisted with), Used gait belt as appropriate. Abuse screen: Denies threats or abuse. Denies injuries from another. Nutritional screening: No deficits noted. Tuberculosis screening: No symptoms or risk factors identified. Assessment: 16:15 General: Appears in no apparent distress. Pain: Pain does not radiate. Pain began ko1 suddenly. 21:05 Reassessment: Patient appears in no apparent distress at this time. No changes from tm6 previously documented assessment. Patient and/or family updated on plan of care and expected duration. Pain level reassessed. Patient is alert, oriented x 3, equal unlabored respirations, skin warm/dry/pink. Vital Signs: 15:58 BP 121 / 84; Pulse 88; Resp 16; Temp 98.1; Pulse Ox 97% on R/A; Weight 108.86 kg; tl4 Height 6 ft. 2 in. ; Pain 0/10; 16:45 BP 118 / 78; Pulse 75; Resp 17; Pulse Ox 96% ; ko1 17:45 BP 126 / 84; Pulse 74; Resp 15; Pulse Ox 97% ; ko1 19:00 BP 129 / 89; Pulse 59; Resp 18 S; Pulse Ox 99% on R/A; as6 21:05 BP 126 / 85; Pulse 67; Pulse Ox 97% on R/A; Pain 0/10; tm6 15:58 Body Mass Index 30.81 (108.86 kg, 187.96 cm) tl4 15:58 Pain Scale: Adult tl4 21:05 Pain Scale: Adult tm6 ED Course: 15:50 Patient arrived in ED. rg4 15:52 Kaushal Hartley MD is Attending Physician. rt 16:01 Triage completed. tl4 16:01 Haley Cisneros, RN is Primary Nurse. ko1 16:03 Arm band placed on right wrist. tl4 16:04 EKG done, by ED staff, reviewed by Kaushal Hartley MD. em1 16:10 Initial lab(s) drawn, by me, sent to lab. em1 16:10 Inserted saline lock: 20 gauge in right hand, using aseptic technique. Blood collected. em1 16:44 XRAY Chest (1 view) In Process Unspecified. EDMS 16:45 Patient has correct armband on for positive identification. Placed in gown. Bed in low ko1 position. Call light in reach. Side rails up X 1. Provided Education on: na. Client placed on continuous cardiac and pulse oximetry monitoring. NIBP monitoring applied. property assessment monitor on. Door closed. Noise minimized. Lights dimmed. Warm blanket given. 16:45 No provider procedures requiring assistance completed. Patient maintains SpO2 ko1 saturation greater than 95% on room air. 17:52 Brayden Morgan MD is Hospitalizing Provider. rt 21:07 Patient admitted, IV remains in place. as6 04/20 09:03 Primary Nurse role handed off by Haley Cisneros, OPAL ld1 09:03 Funmi Stewart, OPAL is Primary Nurse. ld1 Administered Medications: 04/19 16:12 Drug: Aspirin PO Chewable Tablet 243 mg PO once; 81 mg tablets x 3 Route: PO; ld1 21:07 Follow up: Response: No adverse reaction as6 Medication: 16:15 VIS not applicable for this client. ko1 Outcome: 17:53 Decision to Hospitalize by Provider. rt 21:07 Condition: stable as6 21:07 Instructed on the need for admit, 22:39 Admitted to ER Hold. Please see [facility] for further documentation. as6 04/20 13:55 Patient left the ED. ld1 Signatures: Dispatcher [employer] Sudhakar Perry em1 Janki Gray rg4 Funmi Stewart, OPAL JOSEPH ld1 Terence Arevalo RN RN as6 Haley Cisneros, RN OPAL ko1 Kaushal Hartley MD MD rt Memo Mac RN RN tm6 Madhav Lomas tl4 Corrections: (The following items were deleted from the chart) 04/19 16:45 16:15 BP 118 / 78; Pulse 75bpm; Resp 17bpm; Pulse Ox 96%; ko1 ko1
--- NOTE | 2023-04-19 17:53 | EDPHYS ---
Physician Documentation [facility] Name: Rafael Pulido Age: 47 yrs Sex: Male : 1975 Arrival Date: 04/19/2023 Time: 15:49 Bed 6 Private MD: ED Physician Kaushal Hartley HPI: 04/19 17:44 This 47 yrs old Male presents to ER via Ambulatory with complaints of Chest Pain. rt 17:44 Patient presents to the ED with chest pain starting today about 1 hour prior to rt arrival. The patient states this was nonexertional. Patient states that he felt poorly today, stating they felt very fatigued, sleeping more, had occasional nausea and sweating. Patient states that some of the symptoms are similar to when he had an [place], receiving 2 stents about 1 year ago. He denies other acute complaints at this time. States the chest pain is since resolved, only feels tired now. Symptoms are moderate severity, no other aggravating elevating factors.. Historical: - Allergies: 16:01 NKA; tl4 - PMHx: 16:01 Depression; Myocardial infarction; tl4 - PSHx: 16:01 Stented artery; tl4 - Immunization history:: Adult Immunizations unknown. - Social history:: Smoking status: Patient reports the use of cigarette tobacco products, smokes one pack cigarettes per day. ROS: 17:44 Respiratory: Negative for shortness of breath, cough, wheezing, and pleuritic chest rt pain, Abdomen/GI: Negative for abdominal pain, nausea, vomiting, diarrhea, and constipation, MS/Extremity: Negative for injury and deformity, Skin: Negative for injury, rash, and discoloration, Psych: Negative for depression, anxiety, suicide ideation, homicidal ideation, and hallucinations, 17:44 Constitutional: Positive for fatigue, Negative for fever, 17:44 Cardiovascular: Positive for chest pain, Negative for edema, 17:44 Skin: Positive for diaphoresis, Negative for erythema, Exam: 17:44 Constitutional: This is a well developed, well nourished patient who is awake, alert, rt and in no acute distress. Head/Face: Normocephalic, atraumatic. Chest/axilla: Normal chest wall appearance and motion. Nontender with no deformity. No lesions are appreciated. Cardiovascular: Regular rate and rhythm with a normal S1 and S2. No gallops, murmurs, or rubs. Normal PMI, no JVD. No pulse deficits. Respiratory: Lungs have equal breath sounds bilaterally, clear to auscultation and percussion. No rales, rhonchi or wheezes noted. No increased work of breathing, no retractions or nasal flaring. Abdomen/GI: Soft, non-tender, with normal bowel sounds. No distension or tympany. No guarding or rebound. No evidence of tenderness throughout. Skin: Warm, dry with normal turgor. Normal color with no rashes, no lesions, and no evidence of cellulitis. MS/ Extremity: Pulses equal, no cyanosis. Neurovascular intact. Full, normal range of motion. Neuro: Awake and alert, GCS 15, oriented to person, place, time, and situation. Cranial nerves II-XII grossly intact. Motor strength 5/5 in all extremities. Sensory grossly intact. Cerebellar exam normal. Normal gait. Psych: Awake, alert, with orientation to person, place and time. Behavior, mood, and affect are within normal limits. 17:44 ECG was reviewed by the Attending Physician. Vital Signs: 15:58 BP 121 / 84; Pulse 88; Resp 16; Temp 98.1; Pulse Ox 97% on R/A; Weight 108.86 kg; tl4 Height 6 ft. 2 in. ; Pain 0/10; 16:45 BP 118 / 78; Pulse 75; Resp 17; Pulse Ox 96% ; ko1 17:45 BP 126 / 84; Pulse 74; Resp 15; Pulse Ox 97% ; ko1 19:00 BP 129 / 89; Pulse 59; Resp 18 S; Pulse Ox 99% on R/A; as6 21:05 BP 126 / 85; Pulse 67; Pulse Ox 97% on R/A; Pain 0/10; tm6 15:58 Body Mass Index 30.81 (108.86 kg, 187.96 cm) tl4 15:58 Pain Scale: Adult tl4 21:05 Pain Scale: Adult tm6 MDM: 15:56 Patient medically screened. rt 17:49 Differential diagnosis: ACS, pneumonia, pneumothorax, nonspecific chest pain. HEART rt Score: History: Moderately Suspicious (1), ECG: Normal (0), Age: < or = 45 years (0), Risk Factors: > or = 3 Risk factors for atherosclerotic disease (2), Troponin: < or = 1 x Normal Limit (0), Total Score = 3. The patient was given aspirin in the Emergency Department. Data reviewed: vital signs, nurses notes, lab test result(s), EKG, radiologic studies. Consideration of Admission/Observation Patient was admitted/placed on observation. Management of patient was discussed with the following: Hospitalist: Agrees to admit. I considered the following discharge prescriptions or medication management in the emergency department Medications were administered in the Emergency Department. See MAR. Independent interpretation of the following test(s) in the Emergency Department X-Ray: My interpretation is No consolidation syndrome interpretation of x-ray images. Counseling: I had a detailed discussion with the patient and/or guardian regarding the historical points, exam findings, and any diagnostic results supporting the discharge/admit diagnosis, lab results, radiology results, the need for further work-up and treatment in the hospital. Response to treatment: the patient's symptoms have markedly improved after treatment. 04/19 16:02 Order name: Basic Metabolic Panel; Complete Time: 16:47 rt 04/19 16:02 Order name: CBC with Diff; Complete Time: 16:47 rt 04/19 16:02 Order name: LFT's; Complete Time: 16:47 rt 04/19 16:02 Order name: Magnesium; Complete Time: 16:47 rt 04/19 16:02 Order name: Troponin HS; Complete Time: 16:47 rt 04/19 20:14 Order name: Basic Metabolic Panel EDNV 04/19 20:14 Order name: Basic Metabolic Panel EDNV 04/19 20:14 Order name: CBC with Automated Diff EDNV 04/19 20:14 Order name: CBC with Automated Diff EDNV 04/19 20:14 Order name: Lipid Profile EDNV 04/19 20:14 Order name: Lipid Profile ED[facility] 04/19 20:14 Order name: Troponin High Sensitivity EDNV 04/19 20:14 Order name: Troponin High Sensitivity EDNV 04/19 20:14 Order name: Troponin High Sensitivity EDNV 04/19 20:14 Order name: Troponin High Sensitivity EDNV 04/19 16:02 Order name: XRAY Chest (1 view); Complete Time: 17:27 rt 04/19 16:02 Order name: EKG; Complete Time: 16:03 rt 04/19 20:14 Order name: CONS Physician Consult EDNV 04/19 16:02 Order name: Cardiac monitoring; Complete Time: 16:17 rt 04/19 16:02 Order name: EKG - Nurse/Tech; Complete Time: 16:03 rt 04/19 16:02 Order name: IV Saline Lock; Complete Time: 16:44 rt 04/19 16:02 Order name: Labs collected and sent; Complete Time: 16:44 rt 04/19 16:02 Order name: O2 Per Protocol; Complete Time: 16:03 rt 04/19 16:02 Order name: O2 Sat Monitoring; Complete Time: 16:03 rt EC:44 Rate is 79 beats/min. Rhythm is regular, Normal Sinus Rhythm with No ectopy. QRS [place] rt is Normal. IA interval is normal. QRS interval is normal. QT interval is normal. No Q waves. T waves are Normal. No ST changes noted. Interpreted by me. Administered Medications: 16:12 Drug: Aspirin PO Chewable Tablet 243 mg PO once; 81 mg tablets x 3 Route: PO; ld1 21:07 Follow up: Response: No adverse reaction as6 Disposition Summary: 04/19/23 17:53 Hospitalization Ordered Notes: Provider: Brayden Morgan rt Condition: Stable rt Problem: new rt Symptoms: have improved rt Bed/Room Type: Standard rt Hospitalization Status: Inpatient Admission(04/20/23 12:49) bd Location: Telemetry/MedSurg (Inpatient)(04/20/23 12:49) bd Room Assignment: 204(04/20/23 12:49) bd Diagnosis - Chest pain, unspecified rt Forms: - Medication Reconciliation Form rt - SBAR form rt - Leadership Thank You Letter rt Signatures: Dispatcher [employer] EDNV Marci Verdugo bd Gaby Lay RN RN eb1 Funmi Stewart RN RN ld1 Kaushal Hartley MD MD rt LogMadhav darby Ashby RN as6 Corrections: (The following items were deleted from the chart) 04/20 00:04 04/19 17:53 Telemetry/MedSurg (observation) rt eb1 04/20 00:04 04/19 17:53 rt eb1 04/20 12:49 04/19 17:53 Observation rt bd 04/20 12:49 00:04 [facility] ER HOLD eb1 bd 12:49 00:04 ERHOLD- eb1 bd
[2023-04-19] MEDS ORDERED: ONDANSETRON 4 MG/2 ML VIAL IV PRN (20:08)
[2023-04-19] MEDS ORDERED: ACETAMINOPHEN 325 MG TABLET PO PRN (20:08)
--- NOTE | 2023-04-19 20:15 | P.HP ---
Certification for Inpatient Patient admitted to: Observation With expected LOS: <2 Midnights Practitioner: I am a practitioner with admitting privileges, knowledge of patient current condition, hospital course, and medical plan of care. Services: Services provided to patient in accordance with Admission requirements found in Title 42 Section 412.3 of the Code of Federal Regulations Patient History Date of Service: 04/20/23 Reason for admission: Chest pain. History of Present Illness: 47-year-old male patient with medical significant for coronary artery disease status post stent placement x 2 who was evaluated for episode of chest pain. Pain occurred 1 hour provide evaluation and was nonexertional. He had some nausea but he has no fever, chills, rigor, nausea, vomiting. No shortness of breath. In the ED initial imaging and labs were nonrevealing. Because of his prior history he was admitted for ACS workup. Allergies No Known Drug Allergies Allergy (Unverified 08/04/14 00:14) Unknown No Known Allergies Allergy (Uncoded 12/15/16 09:07) Unknown Home Medications: Aspirin [Aspirin EC] 81 mg PO DAILY 04/19/23 Atorvastatin Calcium [Lipitor] 80 mg PO BEDTIME 04/19/23 Clopidogrel Bisulfate [Plavix] 75 mg PO DAILY 04/19/23 Ezetimibe 10 mg PO DAILY 04/19/23 Omeprazole Magnesium [Prilosec Otc] 1 tab PO DAILY 04/19/23 Review of Systems General: Unremarkable Eyes: Unremarkable ENT: Unremarkable Respiratory: Unremarkable Cardiovascular: Chest Pain Gastrointestinal: Unremarkable Genitourinary: Unremarkable Musculoskeletal: Unremarkable Integumentary: Unremarkable Neurological: Unremarkable Lymphatics: Unremarkable Physical Examination - Physical Exam General: Alert, Oriented x3 HEENT: Atraumatic Neck: Supple Respiratory: Normal air movement Cardiovascular: Regular rate/rhythm, Normal S1 S2 Gastrointestinal: Soft and benign Musculoskeletal: No swelling Neurological: Normal speech, Normal strength at 5/5 x4 extr - Studies Laboratory Data (last 24 hrs) 04/19/23 04/19/23 16:18 16:18 WBC 7.70 Hgb 14.2 Hct 40.5 Plt Count 221 Sodium 139 Potassium 3.6 BUN 28 H Creatinine 1.44 H Glucose 102 Magnesium 1.8 Total Bilirubin 0.3 AST 18 ALT 54 Alkaline Phosphatase 93 Assessment and Plan - Plan Chest pain: Concerns for ACS. Telemetry, troponin trend and aspirin/plavix therapy to be continued. Statin therapy to be continued. Will monitor for possible intervention as per cardiology recommendation. Coronary artery disease: Continue statin therapy, aspirin and Plavix. Will obtain lipid panel to evaluate for adequacy of antilipid therapy Prophylaxis: Lovenox for DVT prophylaxis CODE STATUS: Full code Disposition: We will workup for ACS and discharge him once he is cleared by cardiology service. - Advance Directives Does patient have a Living Will: No Does patient have a Durable POA for Healthcare: No
[2023-04-19] MEDS: NA CHLORIDE 0.9% 1,000 ML IV SCH (21:00)
[2023-04-19 21:26] VITALS: BMI 30.8
[2023-04-19] MEDS ORDERED: NA CHLORIDE 0.9% 1,000 ML ONE (22:16)
[2023-04-20 04:30] LABS: Hematocrit 42.8 % (39.6-49.0); Lymphocytes % 24.8 % (15.3-44.8); MCV 91.8 fL (80-100); MPV 8.2 fL (7.6-11.3); Platelets 204 thou/uL (152-406); RBC Red Blood Cell Count 4.66 M/uL (4.33-5.43)
[2023-04-20 04:45] LABS: Potassium 3.9 mEq/L (3.5-5.1)
[2023-04-20] MEDS: NA CHLORIDE 0.9% 1,000 ML IV SCH ×2 (07:00→18:11)
[2023-04-20] MEDS ORDERED: INFLUENZA VACCINE (for 6+ mo) 0.5 ML DOSE IMVAC ONE (08:00)
[2023-04-20] MEDS ORDERED: NA CHLORIDE 0.9% 1,000 ML ONE (08:14)
[2023-04-20] MEDS ORDERED: CLOPIDOGREL 75 MG TABLET ONE (08:14)
[2023-04-20] MEDS ORDERED: ENOXAPARIN 40 MG/0.4 ML SQ ONE (08:14)
[2023-04-20] MEDS ORDERED: ASPIRIN 81 MG CHEWABLE TABLET ONE (08:14)
[2023-04-20] MEDS: ASPIRIN 81 MG CHEWABLE TABLET PO SCH (08:18)
[2023-04-20] MEDS: ENOXAPARIN 40 MG/0.4 ML SQ SCH (08:19)
[2023-04-20] MEDS: CLOPIDOGREL 75 MG TABLET PO SCH (08:19)
[2023-04-20] MEDS ORDERED: MORPHINE 2 MG/ML SYR IV PRN (13:35)
[2023-04-20] MEDS ORDERED: NITROGLYCERIN 0.4 MG/TAB SL PRN (13:35)
--- NOTE | 2023-04-20 13:35 | P.PN ---
Subjective Date of Service: 04/20/23 Chief Complaint: Chest pain. Pt is resting comfortably in bed. HE reports being stressed out at home. No chest wall tenderness. Troponin is negative. Waiting for cardiology eval. Review of Systems Unremarkable General: Unremarkable Eyes: Unremarkable ENT: Unremarkable Respiratory: Unremarkable Cardiovascular: Unremarkable Gastrointestinal: Unremarkable Genitourinary: Unremarkable Musculoskeletal: Unremarkable Integumentary: Unremarkable Neurological: Unremarkable Lymphatics: Unremarkable Physical Examination - Vital Signs Blood Pressure: 114/77 Pulse: 56 Respirations: 18 Pulse Ox (%): 97 - Physical Exam General: Alert, In no apparent distress, Oriented x3 HEENT: Atraumatic, Normocephalic, PERRLA Neck: Supple, 2+ carotid pulse no bruit Respiratory: Clear to auscultation bilaterally, Normal air movement Cardiovascular: No edema, Normal pulses, Regular rate/rhythm, Normal S1 S2 Capillary refill: <2 Seconds Gastrointestinal: Normal bowel sounds, Soft and benign, Non-distended Musculoskeletal: No clubbing, No swelling Integumentary: No rashes, No breakdown Neurological: Normal speech, Normal strength at 5/5 x4 extr, Normal tone, Sensation intact, Cranial nerves 3-12 intact Lymphatics: No axilla or inguinal lymphadenopathy - Studies Laboratory Data (last 24 hrs) 04/19/23 04/19/23 16:18 16:18 WBC 7.70 Hgb 14.2 Hct 40.5 Plt Count 221 Sodium 139 Potassium 3.6 BUN 28 H Creatinine 1.44 H Glucose 102 Magnesium 1.8 Total Bilirubin 0.3 AST 18 ALT 54 Alkaline Phosphatase 93 Assessment And Plan - Plan Chest pain:Will r/o ACS. Pt endorses compliance with aspirin/ plavix. Troponin is negative x 3 ( 3.3 -> 4.6 -> 5.7). Pt is NPO. Waiting for cardiology eval. Continue prn morphin, prn nitroglycerin, statin therapy and follow up lipid panel. Coronary artery disease: Continue statin therapy, aspirin and Plavix. DVT prophylaxis: Lovenox CODE STATUS: Full code Disposition: Waiting for cardiology eval. . Discharge Plan: Home
[2023-04-20 23:15] LABS: Absolute Lymphocytes (CBC) 1.6 K/uL (0.7-4.9); Hematocrit 41.9 % (39.6-49.0); MCV 91.7 fL (80-100); MPV 8.3 fL (7.6-11.3); Platelets 189 thou/uL (152-406); RBC Red Blood Cell Count 4.57 M/uL (4.33-5.43)
[2023-04-21] MEDS: NA CHLORIDE 0.9% 1,000 ML IV SCH (03:28)
[2023-04-21] MEDS: CLOPIDOGREL 75 MG TABLET PO SCH (05:22)
[2023-04-21] MEDS: ASPIRIN 81 MG CHEWABLE TABLET PO SCH (05:22)
[2023-04-21 08:37] LABS: Potassium 4.5 mEq/L (3.5-5.1)
[2023-04-21] MEDS ORDERED: VERAPAMIL HCL 10 MG/4 ML VIAL IV ONE (08:40)
[2023-04-21] MEDS ORDERED: HEPA 1000U/500MLS 2,000 UNIT/1,000 ML BAG IV ONE (08:40)
[2023-04-21] MEDS ORDERED: FENTANYL CITR 100 MCG/2 ML ONE (08:40)
[2023-04-21] MEDS ORDERED: MIDAZOLAM HCL 2 MG/2 ML INJ ONE (08:40)
[2023-04-21] MEDS ORDERED: TICAGRELOR 90 MG TABLET PO ONE (08:41)
[2023-04-21] MEDS ORDERED: CLOPIDOGREL 75 MG TABLET ONE (08:41)
[2023-04-21] MEDS ORDERED: HEPARIN 5000 UNIT/ML 1 ML VIAL ONE (08:41)
[2023-04-21] MEDS ORDERED: ATROPINE SULF 1 MG/10 ML SYR IV ONE (08:41)
[2023-04-21] MEDS ORDERED: HEPARIN 10,000 UNIT/10 ML VIAL IV ONE (08:41)
[2023-04-21] MEDS ORDERED: ASPIRIN 325 MG TAB ONE (08:42)
[2023-04-21] MEDS ORDERED: NA CHLORIDE 0.9% 500 ML ONE (08:48)
[2023-04-21] MEDS ORDERED: LIDOCAINE 1% 20 ML MDV ONE (08:48)
[2023-04-21] MEDS: ENOXAPARIN 40 MG/0.4 ML SQ SCH (09:00)
--- NOTE | 2023-04-21 10:21 | CON ---
Date of Consultation: 04/20/2023 Reason For Consultation: Chest pain History Of Present Illness: This is a 47-year-old male with history of coronary artery disease statu s post HI with PCI of the LAD, who presented with chest pain, pressure like, radiates to his shoulder and left upper extremity, exacerbated with exertion and due to the heart attack experience patient geovany ecame very concerned and presented to the emergency room. His heart enzymes have been negative, but he has been having chest pain with activities and it has become more frequent suggestive of unstable angina. Past Medical History: 1.Coronary artery disease. 2.Dyslipidemia. Medications: Refer to reconciliation sheet for detailed list. Allergies: NO KNOWN DRUG ALLERGIES. Family History: No premature coronary artery disease or cancer. Social History: Does not drink or use any drugs. Review of Systems: All systems reviewed and they were negative except as mentioned in the HPI. Physical Examination: Vital Signs: Reviewed. Head and Neck: Pupils are equal, reactive to light. Intact eye movements. No JVD. No cervical lym phadenopathy. Neck is supple. Thyroid is not enlarged. Lungs: Clear to auscultation bilaterally. No rhonchi, wheezing, or crackles. No accessory muscle u se. Heart: Regular rate and rhythm. No extra sounds. Abdomen: Soft, nontender. Bowel sounds positive. No organomegaly. No masses or hernia. No rigidi ty or rebound. Extremities: No edema, clubbing, or cyanosis. Intact pulses. Skin: No rash or nodule. Neurologic: Alert, awake, oriented x3. No acute focal deficits appreciated. Lymph Nodes: No cervical lymphadenopathy. Investigations: Labs were reviewed. Assessment/recommendations: 1.Chest pain with history of coronary artery disease and recent heart attack. The pain is typical a nd new onset and becoming more frequent suggestive of unstable angina. Keep patient n.p.o. and plan for coronary angiogram tomorrow. Continue baby aspirin and continue to trend cardiac enzymes and obt ain an echo. 2.Dyslipidemia. Recommend Lipitor 40 mg at bedtime. SR/MODL Voice ID: [id number] Report ID: [id number]
--- NOTE | 2023-04-21 10:30 | OP ---
Date of Procedure: 04/21/2023 Surgeon: JOSSY HENLEY Procedure Performed: 1.Selective coronary angiogram. 2.Left heart catheterization. Indication: Unstable angina and known history of coronary artery disease. Access: Right radial artery, 6-Surinamese, closed with TR band. Total Sedation Time: 30 minutes. Complications: None. Bleeding: Less than 20 mL. Description Of Procedure: After risks, benefits, and alternatives were explained, the patient agreed to proceed and signed informed consent. The patient was brought into cardiac catheterization [facility], prepped and draped in a sterile fashion. Then, I accessed right radial artery using pediatric micropuncture kit, placed a 6-Surinamese Slender sheath and took 5-Surinamese [place] 4 catheter into the aorti c root, engaged left main and took standard views and in the RCA, took standard views and the cathete r was pushed over the wire into the LV, measured LVEDP, and pullback not recorded antegrade and remov ed the catheter and sheath, placed TR band with good hemostasis. Findings: 1.Left main: Long and large and normal. 2.LAD: Large vessel with mid LAD long stent that is widely patent. No ISR. Diagonal branches are normal. 3.Left circumflex is normal, small, and nondominant. 4.RCA: Large and dominant with proximal 20% and mid long 20%. The rest of the artery appears to be normal with the PLB and PDA. 5.Normal LVEDP at 6 mmHg. Conclusion: 1.Widely patent LAD stent. 2.Mild coronary artery disease elsewhere. 3.Normal LVEDP. Recommendations: Continue medical management of coronary artery disease. SR/MODL Voice ID: [id number] Report ID: [id number]
--- NOTE | 2023-04-21 10:36 | PN ---
Date of Progress Note: 04/21/2023 Subjective: Seen by bedside. Status post coronary angiogram, doing well. The patient was assured. Review of Systems: No active chest pain. No nausea, vomiting, diarrhea. No abdominal pain. No dysuria, polyuria, or u rinary urgency. All other systems reviewed, they are negative. Physical Examination: Vital Signs: Reviewed. Head and Neck: Pupils are equal, reactive to light. Intact eye movements. No JVD. No cervical lym phadenopathy. Neck is supple. Thyroid is not enlarged. Lungs: Clear to auscultation bilaterally. No rhonchi, rales, or crackles. No accessory muscle use. Heart: Regular rate and rhythm. No extra sounds. Abdomen: Soft, nontender. Bowel sounds positive. No organomegaly. No masses or hernia. No rigidi ty or rebound. Extremities: No edema, clubbing, cyanosis. Intact pulses. Skin: No rash or nodule. Neurologic: Alert, awake, oriented x3. No acute focal deficits appreciated. Investigation: Labs reviewed. Assessment And Recommendation: 1.Chest pain and known history of coronary artery disease. The pain is with typical features, but c oronary angiogram showed mild coronary artery disease and widely patent LAD stent. Recommend to cont inue anti-platelet therapy and high potency high-dose statin and the patient can be released from Car diology standpoint to follow up with his primary director [employer]. 2.Dyslipidemia. Recommend Lipitor 40 mg q.h.s. SR/MODL Voice ID: [id number] Report ID: [id number]
[2023-04-21 11:52] VITALS: O2SAT 97
[2023-04-21 13:09] VITALS: BP 125/78; TEMP 97.4
--- NOTE | 2023-04-21 13:28 | EKG ---
Test Date: 2023-04-19 Test Time: 16:01:26 Extension Clerk: LINA MEASUREMENT RESULTS: Intervals: Rate: 79 LA: 184 QRSD: 80 QT: 368 QTc: 421 [place]: P: 45 LA: 184 QRS: 60 T: 49 INTERPRETIVE STATEMENTS: Normal sinus rhythm Low voltage QRS Borderline ECG Compared to ECG 02/14/2017 10:01:55 Low QRS voltage now present Electronically Signed On 04-21-23 13:23:15 VASCULAR SURGERY PHYSICIAN by Michael Croft
--- NOTE | 2023-04-21 14:11 | P.DS ---
Admission Date: 04/19/23 Discharge Date: 04/21/23 Reason for Admission: Chest pain. - Problems (1) Chest pain Status: Acute (2) CAD (coronary artery disease) Status: Acute Qualifiers: Coronary Disease-Associated Artery/Lesion type: [place] artery [place] vs. transplanted heart: [place] heart Associated angina: with stable angina Qualified Code(s): I25.118 - Atherosclerotic heart disease of [place]he coronary artery with other forms of angina pectoris Brief History of Present Illness: History of Present Illness: 47-year-old male patient with medical significant for coronary artery disease status post stent placement x 2 who was evaluated for episode of chest pain. Pain occurred 1 hour provide evaluation and was nonexertional. He had some nausea but he has no fever, chills, rigor, nausea, vomiting. No shortness of breath. In the ED initial imaging and labs were nonrevealing. Because of his prior history he was admitted for ACS workup. Hospital Course: Mr. Pulido is a pleasant 47-year-old male patient with a past medical history significant for coronary artery disease who was admitted to the [facility] on 04/20/2023. Patient was admitted to the hospital, patient hard IV angiogram showed mild coronary artery disease and widely patent LAD stent. 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 On 02/19/2024, patient was seen and deemed medically stable for discharge. Patient was discharged with instructions to schedule follow-up appointments with PCP 3 to 5 days and deep fat cook fry in 2 weeks. Patient was provided prescriptions for Lipitor 40 mg p.o. at bedtime. The patient and family members were given the opportunity to ask questions and reported no further questions. . 1. Please call and schedule a follow-up appointment with your PCP ( [text]) in 3-5 days 2. Please call and schedule a follow-up appointment with deep fat cook fry in 2 weeks - Please follow-up with your PCP for medication refills/adjustments <Shai Burroughs - Last Filed: 04/21/23 14:06> Admission Date: 04/19/23 Discharge Date: 04/22/23 Hospital Course: Pt seen and examined. I agree with the note by the FOOD SERVICE TRAY ATTENDANT. Cardiology did cardiac cath which was unremarkable. Will continue medical therapy. Pt was advised to follow up with his deep fat cook fry. <Amanda Arana Melani - Last Filed: 04/22/23 18:07> Disposition: ROUTINE DISCHARGE Discharge Condition: GOOD Vital Signs/Physical Exam: Temp Pulse Resp BP Pulse Ox 97.4 F 60 18 125/78 98 04/21/23 12:00 04/21/23 12:00 04/21/23 12:00 04/21/23 12:00 04/21/23 12:00 General: Alert, Oriented x3 HEENT: Atraumatic, Normocephalic Neck: Supple, 2+ carotid pulse no bruit Respiratory: Clear to auscultation bilaterally, Normal air movement Cardiovascular: No edema, Normal pulses, Regular rate/rhythm Capillary refill: <2 Seconds Gastrointestinal: Normal bowel sounds, Soft and benign, Non-distended Musculoskeletal: No clubbing, No swelling Integumentary: No rashes, No breakdown Neurological: Normal gait, Normal speech Laboratory Data at Discharge: WBC 7.30 thou/uL (4.3-10.9) 04/20/23 22:44 Hgb 14.5 g/dL (13.6-17.9) 04/20/23 22:44 Hct 41.9 % (39.6-49.0) 04/20/23 22:44 Plt Count 189 thou/uL (152-406) 04/20/23 22:44 PT 11.0 SECONDS (9.5-12.5) 04/20/23 18:44 INR 1.00 04/20/23 18:44 APTT 32.4 SECONDS (24.3-36.9) 04/20/23 18:44 Sodium 140 mEq/L (136-145) 04/21/23 08:10 Potassium 4.5 mEq/L (3.5-5.1) D 04/21/23 08:10 BUN 18 mg/dL (7-18) 04/21/23 08:10 Creatinine 1.09 mg/dL (0.70-1.30) 04/21/23 08:10 Glucose 103 mg/dL (74-106) 04/21/23 08:10 Magnesium 1.8 mg/dL (1.6-2.4) 04/19/23 16:18 Total Bilirubin 0.3 mg/dL (0.2-1.0) 04/19/23 16:18 AST 18 U/L (15-37) 04/19/23 16:18 ALT 54 U/L (16-61) 04/19/23 16:18 Alkaline Phosphatase 93 U/L (45-117) 04/19/23 16:18 Triglycerides 70 mg/dL (<150) 04/20/23 04:18 Cholesterol 99 mg/dL (<200) 04/20/23 04:18 HDL Cholesterol 47 mg/dL (40-60) 04/20/23 04:18 Cholesterol/HDL Ratio 2.11 04/20/23 04:18 <Shai Burroughs - Last Filed: 04/21/23 14:06> Vital Signs/Physical Exam: Temp Pulse Resp BP Pulse Ox 97.4 F 60 18 125/78 98 04/21/23 12:00 04/21/23 12:00 04/21/23 12:00 04/21/23 12:00 04/21/23 12:00 Laboratory Data at Discharge: WBC 7.30 thou/uL (4.3-10.9) 04/20/23 22:44 Hgb 14.5 g/dL (13.6-17.9) 04/20/23 22:44 Hct 41.9 % (39.6-49.0) 04/20/23 22:44 Plt Count 189 thou/uL (152-406) 04/20/23 22:44 PT 11.0 SECONDS (9.5-12.5) 04/20/23 18:44 INR 1.00 04/20/23 18:44 APTT 32.4 SECONDS (24.3-36.9) 04/20/23 18:44 Sodium 140 mEq/L (136-145) 04/21/23 08:10 Potassium 4.5 mEq/L (3.5-5.1) D 04/21/23 08:10 BUN 18 mg/dL (7-18) 04/21/23 08:10 Creatinine 1.09 mg/dL (0.70-1.30) 04/21/23 08:10 Glucose 103 mg/dL (74-106) 04/21/23 08:10 Magnesium 1.8 mg/dL (1.6-2.4) 04/19/23 16:18 Total Bilirubin 0.3 mg/dL (0.2-1.0) 04/19/23 16:18 AST 18 U/L (15-37) 04/19/23 16:18 ALT 54 U/L (16-61) 04/19/23 16:18 Alkaline Phosphatase 93 U/L (45-117) 04/19/23 16:18 Triglycerides 70 mg/dL (<150) 04/20/23 04:18 Cholesterol 99 mg/dL (<200) 04/20/23 04:18 HDL Cholesterol 47 mg/dL (40-60) 04/20/23 04:18 Cholesterol/HDL Ratio 2.11 04/20/23 04:18 <Amanda Arana - Last Filed: 04/22/23 18:07> Diet: Regular Activity: Ad sasha Time spent managing pt's care (in minutes): 55 (minutes) <Shai Burroughs - Last Filed: 04/21/23 14:06> <Amanda Arana - Last Filed: 04/22/23 18:07> Home Medications: Aspirin [Aspirin EC] 81 mg PO DAILY 04/19/23 Atorvastatin Calcium [Lipitor] 80 mg PO BEDTIME 04/19/23 Clopidogrel Bisulfate [Plavix*] 75 mg PO DAILY 04/19/23 Ezetimibe 10 mg PO DAILY 04/19/23 Omeprazole Magnesium [Prilosec Otc] 1 tab PO DAILY 04/19/23 Physician Discharge Instructions: Mr. Pulido is a pleasant 47-year-old male patient with a past medical history significant for coronary artery disease who was admitted to the [facility] on 04/20/2023. Patient was admitted to the hospital, patient had angiogram showed mild coronary artery disease and widely patent LAD stent. 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 On 02/19/2024, patient was seen on morning rounds and deemed medically stable for discharge. Patient was discharged with instructions to schedule follow-up appointments with PCP 3 to 5 days and deep fat cook fry in 2 weeks. The patient and family members were given the opportunity to ask questions and reported no further questions. . 1. Please call and schedule a follow-up appointment with your PCP in 3-5 days 2. Please call and schedule a follow-up appointment with deep fat cook fry in 2 weeks - Please follow-up with your PCP for medication refills/adjustments Followup: Michael Croft MD [ACTIVE - CAN ADMIT] - 1-2 Weeks Sj Ny MD [Primary Care Provider] - (F/U in 3-5 days)
== END 2023-04-21 14:37 | disposition home or self-care (01) ==
LOC: ER 15:49 → ERHOLD 20:08 → 2ND 04-20 13:31
PROVIDERS: ADMIT Internal Medicine Nephrology; ATTEND Hospitalist
PROC: 4A023N7 Measurement of Cardiac Sampling and Pressure, Left Heart, Percutaneous Approach (ICD-10-PCS; principal; 2023-04-21)
PROC: B2111ZZ Fluoroscopy of Multiple Coronary Arteries using Low Osmolar Contrast (ICD-10-PCS; 2023-04-21)
DX: I25.118 Atherosclerotic heart disease of native coronary artery with other forms of angina pectoris (principal); E78.5 Hyperlipidemia, unspecified; I25.2 Old myocardial infarction; F32.A Depression, unspecified; Z95.5 Presence of coronary angioplasty implant and graft; F17.210 Nicotine dependence, cigarettes, uncomplicated; Z79.82 Long term (current) use of aspirin; Z79.02 Long term (current) use of antithrombotics/antiplatelets; Z79.899 Other long term (current) drug therapy
CPT/HCPCS: 93005; 85025 ×3; 80048 ×3; 36415 ×2; 83735; 85610; 80061; 80076; 85730; 84484 ×4; 71045; 93458; 76937; C1893; Q9966; J1644; J2001; J1650; J2250; J3010; G0378 ×6; J7040; J7030 ×4; 99152; 99153; J0461

== ENCOUNTER 2023-12-31 14:56 | Inpatient (IN) | payer OTHER ==
--- OUTSIDE RECORDS SUMMARY | 2023-12-31 15:00 | XMS REPORT | Continuity of Care Document ---
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 Patient Secure Msg Doctor Unassigned, Bowen [facility] 1.2.840.114 350.1.13.10 4.2.7.2.686 [id number] [facility] 2022-11-08 17:26:00 2022-11-09 18:31:00 [facility] [id number] [facility] 2022-11-08 17:26:00 2022-11-09 18:31:00 [facility] 1.2.840.114 350.1.13.10 4.2.7.2.686 [id number] [facility] 2022-06-02 00:00:00 2022-06-02 00:00:00 [facility] 1.2.840.114 350.1.13.10 4.2.7.2.686 [id number] [id number] [facility] 2022-04-28 16:00:00 2022-04-28 16:07:17 Outpatient R KIKO BURROUGHS [facility] [id number] [facility] 2022-04-28 16:00:00 2022-04-28 16:07:17 Urgent Care Kiko Burroughs Unknown, Attending [facility] 1.84.114 350.1.13.10 4.2.7.2.686 [id number] [facility] 2022-02-16 15:20:00 2022-02-16 15:20:00 Outpatient R RICHARD [facility] [id number] [facility] 2022-02-16 15:20:00 2022-02-16 15:20:00 Outpatient R RICHARD [facility] [id number] [facility] 2022-01-26 14:30:00 2022-01-26 14:30:00 Outpatient R HIEN LOVETT [facility] [id number] [facility] 2022-01-04 17:38:00 2022-01-05 17:51:00 Outpatient X DIAMONDJOSÉ ANTONIO BRITTANY [facility] [id number] [facility] 2022-01-04 17:38:00 2022-01-05 17:51:00 Emergency Gilliland[facility] 1.84.114 350.1.13.10 4.2.7.2.686 [id number] [facility] 2021-12-09 00:00:00 2021-12-09 00:00:00 Telephone Richard, [facility] BUILDING 1..840.114 350.1.13.10 4.2.7.2.686 [id number] [id number] [facility] 2021-11-26 00:00:00 2021-11-26 00:00:00 Telephone Richard, [facility] BUILDING 1..840.114 350.1.13.10 4.2.7.2.686 [id number] [id number] [facility] 2021-11-19 15:44:58 2021-11-19 23:59:00 Outpatient R RICHARD [facility] [id number] [facility] 2021-11-19 16:00:00 2021-11-19 16:00:00 Outpatient R RICHARD [facility] [id number] [facility] 2021-11-11 14:45:00 2021-11-11 15:00:00 Retarder Operator Visit 2, Adc Lab Richard [facility] BUILDING 1.2.840.114 350.1.13.10 4.2.7.2.686 [id number] [facility] 2021-11-11 13:40:00 2021-11-11 14:10:06 Outpatient R RICHARD [facility] [id number] [facility] 2021-11-11 13:40:00 2021-11-11 14:10:06 Office Visit Richard [facility] BUILDING 1.2.840.114 350.1.13.10 4.2.7.2.686 [id number] [facility] 2021-11-11 09:00:00 2021-11-11 09:15:00 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, Klaus Lovett [facility] 1.2.840.114 350.1.13.10 4.2.7.2.686 [id number] [facility] 2021-11-11 09:00:00 2021-11-11 09:00:00 Outpatient R HIEN LOVETT [facility] [id number] [facility] 2021-11-11 08:30:00 2021-11-11 08:51:49 Office Visit Hien Lovett [facility] MEDICAL OFFICE BUILDING 1..114 350.1.13.10 4.2.7.2.686 [id number] [id number] [facility] 2021-11-11 08:30:00 2021-11-11 08:51:49 Outpatient HIEN DAIVES [facility] [id number] [facility] 2021-11-11 00:00:00 2021-11-11 00:00:00 Orders Only Doctor Unassigned, Bowen [facility] 1.20.114 350.1.13.10 4.2.7.2.686 [id number] [id number] [facility] 2021-10-12 00:00:00 2021-10-12 00:00:00 Hien Heredia [facility] 1.114 350.1.13.10 4.2.7.2.686 [id number] [id number] [facility] 2021-09-16 12:56:00 2021-09-16 15:17:00 Emergency X OREN STEELE [facility] ERT [id number] [facility] 2021-09-16 12:56:00 2021-09-16 15:17:00 Emergency Maritza Callejas [facility] 1.114 350.1.13.10 4.2.7.2.686 [id number] [id number] [facility] 2021-09-16 00:00:00 2021-09-16 00:00:00 Orders Only Doctor Unassigned, Bowen [facility] 1.114 350.1.13.10 4.2.7.2.686 [id number] [id number] [facility] 2021-08-24 00:00:00 2021-08-24 00:00:00 Patient Secure Msg Doctor Unassigned, Bowen [facility] 1..114 350.1.13.10 4.2.7.2.686 [id number] [facility] 2021-08-22 18:15:00 2021-08-22 21:56:00 Emergency X KULDIP CORONA [facility] ERT [id number] [facility] 2021-08-22 18:15:00 2021-08-22 21:56:00 Emergency Kuldip Corona [facility] 1.2.840.114 350.1.13.10 4.2.7.2.686 [id number] 084 [id number] [facility] 2021-06-11 00:00:00 2021-06-11 00:00:00 Patient Secure Msg Doctor Unassigned, [facility] 1.2840.114 350.1.13.10 4.2.7.2.686 [id number] 044 [id number] [facility] 2021-06-05 00:00:00 2021-06-05 00:00:00 Refill Darlene Garrido [facility] FLO?[facility] BUILD[facility] 1.2840.114 350.1.13.10 4.2.7.2.686 [id number] [id number] [facility] 2021-04-13 00:00:00 2021-04-13 00:00:00 Telephone Darlene Garrido [facility] FLO?[facility] OFF[facility] BUILDING 1.2840.114 350.1.13.10 4.2.7.2.686 [id number] 044 [id number] [facility] 2021-03-25 00:00:00 2021-03-25 00:00:00 Refill Darlene Garrido [facility] F[facility] MED[facility] OFF[facility] BUILDING 1.2840.114 350.1.13.10 4.2.7.2.686 [id number] [id number] [facility] 2021-01-09 02:47:00 2021-01-09 05:03:00 Emergency Oren Steele [facility] 1.2.840.114 350.1.13.10 4.2.7.2.686 [id number] [facility] 2021-01-09 00:00:00 2021-01-09 00:00:00 Orders Only Doctor Unassigned, Bowen [facility] 1.2840.114 350.1.13.10 4.2.7.2.686 [id number] [id number] [facility] 2020-12-08 15:04:21 2020-12-08 15:19:21 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, [facility] 1..840.114 350.1.13.10 4.2.7.2.686 [id number] [facility] 2020-12-08 14:20:35 2020-12-08 15:04:33 Office Visit Clarisa [facility] Medical Office Building 1.2.84.114 350.1.13.10 4.2.7.2.686 [id number] [facility] 2020-12-08 14:30:00 2020-12-08 14:30:00 Outpatient GEOFFREY WILLIS [facility] [id number] [facility] 2020-11-26 00:00:00 2020-11-26 00:00:00 Telephone Hien Lovett [facility] Medical Office Building 1.2.840.114 350.1.13.10 4.2.7.2.686 [id number] 044 [id number] [facility] 2020-11-25 10:00:00 2020-11-25 10:00:00 Outpatient GISELA GARCÍA [facility] [id number] [facility] 2020-11-22 12:00:00 2020-11-22 12:00:00 Outpatient R HUONGHEATHHIEN [facility] [id number] [facility] 2020-11-22 09:47:33 2020-11-22 10:02:33 Retarder Operator Visit Pob, Adc Lab Main Ervin Hien [facility] Building 1.2840.114 350.1.13.10 4.2.7.2.686 [id number] 353 [id number] [facility] 2020-11-22 09:47:33 2020-11-22 10:02:33 Retarder Operator Visit Pob, Adc Lab Main SannaHien leija [facility] 1.2840.114 350.1.13.10 4.2.7.2.686 [id number] [facility] 2020-11-22 00:00:00 2020-11-22 00:00:00 Orders Only Doctor Unassigned, Bowen [facility] 1.2840.114 350.1.13.10 4.2.7.2.686 [id number] [id number] [facility] 2020-11-22 00:00:00 2020-11-22 00:00:00 Orders Only Doctor Unassigned, Bowen [facility] 1.20.114 350.1.13.10 4.2.7.2.686 [id number] [id number] [facility] 2020-11-21 15:48:30 2020-11-21 16:03:30 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, [facility] 1.284.114 350.1.13.10 4.2.7.2.686 [id number] [facility] 2020-11-21 16:00:00 2020-11-21 15:59:00 Outpatient R HIEN LOVETT [facility] [id number] [facility] 2020-11-20 00:00:00 2020-11-20 00:00:00 Telephone Darlene Garrido [facility] Office Building One 1..840.114 350.1.13.10 4.2.7.2.686 [id number] 044 [id number] [facility] 2020-11-20 00:00:00 2020-11-20 00:00:00 Telephone Darlene Garrido [facility] Office Building One 1..840.114 350.1.13.10 4.2.7.2.686 [id number] [facility] 2020-11-12 12:08:57 2020-11-12 12:23:57 Retarder Operator Visit Po, Adc Lab Main Ervin Hien [facility] Building 1..840.114 350.1.13.10 4.2.7.2.686 [id number] [facility] 2020-11-12 12:08:57 2020-11-12 12:23:57 Retarder Operator Visit Po, Adc Lab Main Hien Lovett [facility] Building 1..840.114 350.1.13.10 4.2.7.2.686 [id number] [facility] 2020-11-12 11:30:00 2020-11-12 11:30:00 Outpatient R [facility] [id number] [facility] 2020-11-12 11:00:00 2020-11-12 11:00:00 Outpatient R [facility] [id number] [facility] 2020-11-12 00:00:00 2020-11-12 00:00:00 Telephone Hien Lovett [facility] Medical Office Building 1..840.114 350.1.13.10 4.2.7.2.686 [id number] [facility] 2020-11-03 13:00:00 2020-11-03 13:00:00 Outpatient HIEN DAVIES [facility] [id number] [facility] 2020-10-29 15:07:34 2020-10-29 15:22:34 Retarder Operator Visit Pob, Adc Lab Main Lois Boateng [facility] Building 1..840.114 350.1.13.10 4.2.7.2.686 [id number] [facility] 2020-10-29 15:00:00 2020-10-29 15:00:00 Outpatient LOIS HODGSON [facility] [id number] [facility] 2020-10-29 14:18:29 2020-10-29 14:48:29 Office Visit Hien Lovett [facility] Office Building One 1.840.114 350.1.13.10 4.2.7.2.686 [id number] [facility] 2020-10-29 14:30:00 2020-10-29 14:30:00 Outpatient Christopher BORJAHEATHHIEN [facility] [id number] [facility] 2020-10-29 08:00:00 2020-10-29 08:00:00 Outpatient DARLENE VALERIO [facility] [id number] [facility] 2020-10-29 00:00:00 2020-10-29 00:00:00 Orders Only Doctor Unassigned, Bowen [facility] 1.840.114 350.1.13.10 4.2.7.2.686 [id number] [facility] 2020-10-18 16:41:00 2020-10-20 15:00:00 Emergency Med[place], Darnell Alonzo Malachi [facility] 1.2840.114 350.1.13.10 4.2.7.2.686 [id number] [facility] 2020-10-18 00:00:00 2020-10-18 00:00:00 Orders Only Doctor Unassigned, Bowen [facility] 1.2.840.114 350.1.13.10 4.2.7.2.686 [id number] [id number] [facility] 2020-10-11 08:57:00 2020-10-14 17:00:00 Hospital Encounter Oren Steele[facility] 1.2840.114 350.1.13.10 4.2.7.2.686 [id number] [id number] [facility] 2020-10-11 00:00:00 2020-10-11 00:00:00 Orders Only Doctor Unassigned, Bowen [facility] 1.2840.114 350.1.13.10 4.2.7.2.686 [id number] [id number] [facility] Results Test Description Test Time Test Comments Results Result Co mments Source [facility] [id number] 04:29:13* Test Item Value Reference Range Interpretation Comme nts TROPONIN I (test code = 2362920891) 0.004 ng/mL <=0.034 NING (test code = [...] of biotin. Lab Interpretation (test code = 66714-3) Normal [facility] [id number] 23:42:46* Test Item Value Reference Range Interpretation Comme nts TROPONIN I (test code = 9679114145) 0.003 ng/mL <=0.034 NING (test code = [...] of biotin. Lab Interpretation (test code = 72496-1) Normal [facility] METABOLIC PANEL (80977)2022-11-08 23:31:03* Test Item Value Reference Range Interpretation Comme nts NA (test code = 1828478972) 139 mmol/L 135-145 K (test code = 0047305999) 3.8 mmol/L 3.5-5.0 CL (test code = 5303342428) 104 mmol/L 98-108 CO2 TOTAL (test code = 9377889700) 27 mmol/L 23-31 AGAP (test code = 4086558674) 8 2-16 BUN (test code = 0269161718) 29 mg/dL 7-23 H GLUCOSE (test code = 0583074870) 89 mg/dL 70-110 CREATININE (test code = 0643891310) 1.22 mg/dL 0.60-1.25 TOTAL BILI (test code = 8514348475) 0.2 mg/dL 0.1-1.1 CALCIUM (test code = 4651284587) 9.1 mg/dL 8.6-10.6 T PROTEIN (test code = 0103790072) 7.2 g/dL 6.3-8.2 ALBUMIN (test code = 6662576922) 4.4 g/dL 3.5-5.0 ALK PHOS (test code = 2461762628) 85 U/L 34-122 ALTv (test code = 1742-6) 66 U/L 5-50 H AST(SGOT) (test code = 8895980119) 33 U/L 13-40 eGFR (test code = 3735139411) 64.2 mL/min/1.73m2 NING (test code = NING) [...] imaging tests). Lab Interpretation (test code = 65695-3) Abnormal [facility]2023-[facility]-21 23:31:03* Test Item Value Reference Range Interpretation Comme [facility] LIPASE (test code = 9171948594) 206 U/L 0-220 Lab Interpretation (test cod e = 56725-1) Normal [facility] HospitalACTIVATED PARTIAL THRMPLAS [id number] 23:30:02* Test Item Value Reference Range Interpretation Comme [facility] APTT Patient (test code = 3173-2) 26 See_Comment [Automated message] The system which generated this result transmitted reference range: 23 - 38 Seconds. The reference range was not used to interpret this result as normal/abnormal. NING (test code = NING) The [facility] patient population mean normal value for aPTT is 30 seconds. Lab Interpretation (test code = 40576-2) Normal [facility] HospitalPROTHROMBIN TIME / [id number] 23:28:01* Test Item Value Reference Range Interpretation Comme [facility] PROTIME PATIENT (test code = 5964-2) 12.4 See_Comment [Automated messa ge] The system which generated this result transmitted reference range: 12.0 - 14.7 Seconds. The reference range was not used to interpret this result as normal/abnormal. INR (test code = 6301-6) 1.0 Normal INR <1.1; Warfarin Therapeutic range 2.0 to 3.0 or 2.5 to 3.5, depending upon the indications. Lab Interpretation (test code = 43970-0) Normal [facility] HospitalCBC WITH [id number] 23:21:01* Test Item Value Reference Range Interpretation Comme [facility] WBC (test code = 6690-2) 7.79 See_Comment [Automated messa ge] The system which generated this result transmitted reference range: 4.20 - 10.70 10*3/?L. The reference range was not used to interpret this result as normal/abnormal. RBC (test code = 789-8) 4.57 See_Comment [Automated messa ge] The system which [...] 35.0 g/dL 31.2-35.0 RDW-SD (test code = 64496-3) 45.0 fL 38.5-51.6 RDW-CV (test code = 788-0) 13.3 % 12.1-15.4 PLT (test code = 777-3) 263 See_Comment [Automated messa ge] The system which generated this result transmitted reference range: 150 - 328 10*3/?L. The reference range was not used to interpret this result as normal/abnormal. MPV (test code = 08326-2) 10.5 fL 9.8-13.0 NRBC/100 WBC (test code = 5051306145) 0.0 See_Comment [Automated me ssage] The system which generated this result transmitted reference range: 0.0 - 10.0 /100 WBCs. The reference range was not used to interpret this result as normal/abnormal. NRBC x10^3 (test code = 2836793737) See_Comment [Automated me ssage] The system which generated this result transmitted reference range: 10*3/?L. The reference range was not used to interpret this result as normal/abnormal. GRAN MAT (NEUT) % (test code = 770-8) 55.3 % IMM GRAN % (test code = 4911844842) 0.40 % LYMPH % (test code = 736-9) 31.6 % MONO % (test code = 5905-5) 9.5 % EOS % (test code = 713-8) 2.6 % BASO % (test code = 706-2) 0.6 % GRAN MAT x10^3(ANC) (test code = 9591011989) 4.31 10*3/uL 1.99-6.95 IMM GRAN x10^3 (test code = 8340441444) 0.03 10*3/uL 0.00-0.06 LYMPH x10^3 (test code = 731-0) 2.46 10*3/uL 1.09-3.23 MONO x10^3 (test code = 742-7) 0.74 10*3/uL 0.36-1.02 EOS x10^3 (test code = 711-2) 0.20 10*3/uL 0.06-0.53 BASO x10^3 (test code = 704-7) 0.05 10*3/uL 0.01-0.09 [facility] [id number] 11:09:16* Test Item Value Reference Range Interpretation Comments TROPONIN I (test code = 7743834910) 0.004 ng/mL See_Comment [Automated message] The system [...] of biotin. Lab Interpretation (test code = 92724-1) Normal [facility] HospitalMagnesium [id number] 11:01:35* Test Item Value Reference Range Interpretation Comme nts MAGNESIUM (test code = 8108989464) 2.2 mg/dL 1.7-2.4 Lab Interpretation (test cod e = 12294-4) [facility] (NA, K, CL, CO2, GLUCOSE, BUN, CREATININE, CA)2022-01-05 11:01:15* Test Item Value Reference Range Interpretation Comme nts NA (test code = 8596457594) 138 mmol/L 135-145 K (test code = 3049879600) 3.6 mmol/L 3.5-5 CL (test code = 4214656997) 104 mmol/L 98-108 CO2 TOTAL (test code = 8769167970) 32 mmol/L 23-31 H AGAP (test code = 6327834017) 2-16 BUN (test code = 6716289861) 21 mg/dL 7-23 GLUCOSE (test code = 5640914566) 95 mg/dL 70-110 CREATININE (test code = 0192138245) 1.16 mg/dL 0.6-1.25 CALCIUM (test code = 2168044104) 8.4 mg/dL 8.6-10.6 L eGFR (test code = 0515134884) mL/min/1.73m2 NING (test code = NING) Association [...] imaging tests). Lab Interpretation (test code = 39530-1) Abnormal [facility] [id number] 03:37:22* Test Item Value Reference Range Interpretation Comments TROPONIN I (test code = 4844451844) 0.004 ng/mL See_Comment [Automated message] The system [...] of biotin. Lab Interpretation (test code = 39354-5) Normal [facility] [id number] 03:24:20* Test Item Value Reference Range Interpretation Comme nts PHOSPHORUS (test code = 3109428388) 4.3 mg/dL 2.5-5 Lab Interpretation (test cod e = 40212-9) Normal [facility] [id number] 00:06:12* Test Item Value Reference Range Interpretation Comme nts NT-proBNP (test code = 9167319592) 40 pg/mL See_Comment [Automated message] The system which generated this result transmitted reference range: <=125. The reference range was not used to interpret this result as normal/abnormal. NING (test code = NING) Biotin has been reported to cause a negative bias, interpret results relative to patient's use of biotin. Lab Interpretation (test code = 43047-5) [facility] [id number] 23:48:06* Test Item Value Reference Range Interpretation Comments TROPONIN I (test code = [id number]) 0.003 ng/mL See_Comment [Automated message] The system [...] of biotin. Lab Interpretation (test code = 47303-3) Normal [facility]. METABOLIC PANEL (89462)2022-01-04 23:38:01* Test Item Value Reference Range Interpretation Comme nts NA (test code = 7333179833) 138 mmol/L 135-145 K (test code = 7477451001) 4.1 mmol/L 3.5-5 CL (test code = 2506159901) 101 mmol/L 98-108 CO2 TOTAL (test code = 2953112904) 29 mmol/L 23-31 AGAP (test code = 3946133913) 2-16 BUN (test code = 9478292630) 18 mg/dL 7-23 GLUCOSE (test code = 8998799315) 100 mg/dL 70-110 CREATININE (test code = 0709169096) 1.15 mg/dL 0.6-1.25 TOTAL BILI (test code = 4341333327) 0.3 mg/dL 0.1-1.1 CALCIUM (test code = 8809471600) 8.8 mg/dL 8.6-10.6 T PROTEIN (test code = 8896305774) 6.4 g/dL 6.3-8.2 ALBUMIN (test code = 6141813427) 4.4 g/dL 3.5-5 ALK PHOS (test code = 2847676193) 93 U/L 34-122 ALTv (test code = 1742-6) 47 U/L 5-50 AST(SGOT) (test code = 6747891419) 29 U/L 13-40 eGFR (test code = 9593781810) mL/min/1.73m2 NING (test code = NING) Association [...] or urine or abnormalities in imaging tests). [facility] [id number] 23:21:40* Test Item Value Reference Range Interpretation Comme nts PROTIME PATIENT (test code = 5964-2) See_Comment L [Automated [employer]] The system which generated this result transmitted reference range: 12.0 - 14.7 Seconds. The reference range was not used to interpret this result as normal/abnormal. INR (test code = 6301-6) Normal INR <1.1; Warfarin Therapeutic range 2.0 to 3.0 or 2.5 to 3.5, depending upon the indications. Lab Interpretation (test code = 59590-9) [facility]normal [facility] [id number] 23:17:41* Test Item Value Reference Range Interpretation Comme nts WBC (test code = 6690-2) See_Comment [Automated [employer]] The system which generated this result transmitted reference range: 4.20 - 10.70 10*3/?L. The reference range was not used to interpret this result as normal/abnormal. RBC (test code = 789-8) See_Comment [Project Repat] The system which generated this result transmitted [...] 34.9 g/dL 31.2-35 RDW-SD (test code = 78648-0) 43.0 fL 38.5-51.6 RDW-CV (test code = 788-0) 13.2 % 12.1-15.4 PLT (test code = 777-3) See_Comment [Automated messa ge] The system which generated this result transmitted reference range: 150 - 328 10*3/?L. The reference range was not used to interpret this result as normal/abnormal. MPV (test code = 69769-2) 9.7 fL 9.8-13 L NRBC/100 WBC (test code = 7758591002) See_Comment [Automated [employer] ssage] The system which generated this result transmitted reference range: 0.0 - 10.0 /100 WBCs. The reference range was not used to interpret this result as normal/abnormal. NRBC x10^3 (test code = 7494182721) See_Comment [Automated messa ge] The system which generated this result transmitted reference range: 10*3/?L. The reference range was not used to interpret this result as normal/abnormal. GRAN MAT (NEUT) % (test code = 770-8) 64.5 % IMM GRAN % (test code = 0436737041) 0.10 % LYMPH % (test code = 736-9) 24.8 % MONO % (test code = 5905-5) 8.1 % EOS % (test code = 713-8) 1.8 % BASO % (test code = 706-2) 0.7 % GRAN MAT x10^3(ANC) (test code = 5771899006) 4.92 10*3/uL 1.99-6.95 IMM GRAN x10^3 (test code = 7165191689) 0-0.06 LYMPH x10^3 (test code = 731-0) 1.89 10*3/uL 1.09-3.23 MONO x10^3 (test code = 742-7) 0.62 10*3/uL 0.36-1.02 EOS x10^3 (test code = 711-2) 0.14 10*3/uL 0.06-0.53 BASO x10^3 (test code = 704-7) 0.05 10*3/uL 0.01-0.09 Lab Interpretation (test code = 39536-1) Abnormal [facility] History and Physical Notes Date/Time Note Provider Source 2022-11-09 07:44:01 Formatting of this n ote is different from the original. Medicine History & Physical Date of Service: 11/09/2022 Pt presents from: home CC: chest pain History of Present Illness: Rafael Pulido is a 47 year old male with a PMH of CAD, tobacco abuse who presented to the ED for chest pain. Symptoms started one day ago. He was driving [...] suicidal or homicidal ideation / All others negative Review of Hx/Meds: No current facility-administered medications on file prior to [...] 3 I have reviewed the patient's home medications PMH: Past Medical History: Diagnosis Date Fracture closed, [...] mg, 40 mg, Oral, DAILY, Neto Lombardo MD Objective: Vitals: Vitals: 11/08/22201411/08/22 2310 11/08/22 2311 11/09/22 0419 BP: 117/70 91/65 102/58 112/66 Pulse: 56 62 61 54 Resp: 20 Temp: 36.3 ?C (97.4 ?F) 36.4 ?C (97.6 ?F) 36.4 ?C (97.6 ?F) TempSrc: SpO2: 94% 94% 93% Weight: 108 kg (238 lb) 106.5 kg (234 lb 11.2 oz) Height: I/O's: No intake or output data in the 24 hours ending 11/09/22 0744 Physical Exam: Constitutional: A&O x3, well-developed, well-nourished, and in no distress. Head: Normocephalic and atraumatic. Eyes: PERRL. Conjunctivae and EOM are normal. Neck: Normal range of motion. Neck supple. No JVD present. Cardiovascular: Normal rate, regular rhythm, normal heart sounds [...] No rash noted. No erythema. No pallor. Labs: BMP:BMP NA (mmol/L) Date Value 11/08/2022 139 01/05/2022 [...] (H) 01/04/2022 29 11/11/2021 28 09/16/2021 28 CBC:CBC WBC (10*3/?L) Date Value 11/08/2022 7.79 RBC (10*6/?L) Date Value 11/08/2022 4.57 PLT (10*3/?L) Date Value 11/08/2022 263 HGB (g/dL) Date Value 11/08/2022 14.7 HCT (%) Date Value 11/08/2022 42.0 BMP:Hepatic Function Panel ALBUMIN (g/dL) Date Value 11/08/2022 4.4 T PROTEIN (g/dL) Date Value 11/08/2022 7.2 TOTAL BILI (mg/dL) Date Value 11/08/2022 0.2 BILI UNCON (mg/dL) Date Value 10/19/2020 0.2 BILI CONJ (mg/dL) Date Value 10/19/2020 0.0 ALT(SGPT) (U/L) Date Value 02/14/2016 56 ALTv (U/L) Date Value 11/08/2022 66 (H) AST(SGOT) (U/L) Date Value 11/08/2022 33 ALK PHOS (U/L) Date Value 11/08/2022 85 Troponin: Recent Labs 11/08/22 2228 TROPNI 0.004 I have reviewed all relevant labs Imaging: XR CHEST 1 VW Result Date: 11/08/2022 Ordering Physician: ARVIN MEDINA Clinical Indication: chest pain Additional Clinical Information: Technical Limitations: None Comparison: None Technique: Portable chest obtained at 1800 hours Findings: There is shallow inspiration. There is a minimal left infrahilar nodular infiltrate. The right lung is clear. Mild left infrahilar nodular groundglass infiltrate. HS: Y END OF REPORT Assessment and plan: Principal Problem: Chest pain, unspecified type Chest Pain Troponin negative. EKG reviewed, actually shows 1st degree AV block with TX interval 210ms. Was assessed while he was sleeping. A repeat EKG shows improvement in AV block, but persistent bradycardia -last [facility] 09/2020, jeannette may need outpatient cards followup for stress testing -reduce metoprolol from 75mg BID to 50mg BID -ASA, statin DVT prophylaxis: H Advanced Care Planning ( Z71.89 ) Above assessment and plan discussed at length with patient, patient expressed full understanding. Questions and concerns addressed I spent 18 minutes discussing the advance care planning. Advanced Directive Maker: self Level of comfort: N/A Code Status: full Tobacco user (Z71.6) Patient counseled at length and Pt expressed full understanding, Time discussed 3 minutes Disposition: admit to obs Signed: Neto Lombardo MD 11/09/2022 T [facility] - Health Notes Date/Time Note Provider Source 2023-12-30 08:15:00 Images from the original note were not included. Venipuncture collection performed by clean technique on the left anticubitus. Total of 1 attempts were made. Slight pressure and a bandage/dressing were applied to the site(s). The patient experienced no complications. The following specimens were processed according to instructions and sent to [facility] laboratories per lab order on 12/30/2023 : LT BLUE SST 1 RED LAV 1 PPT DK GREEN (LiHep) DK GREEN (SodH) DUMONT DK BLUE (K2) DK BLUE (S) ACD Blood Culture NIPT/NTD [facility] 2023-12-22 13:11:31 Referral placed [facility] 2023-12-22 12:52:40 Patient is scheduled for his annual follow up tomorrow 12/22 with Cardiology to see patient is needing a referral authorized by his insurance please advise. Avril Dhaliwal [facility] 2022-11-29 12:58:58 Formatting of this n ote might be different from the original. Patient called stating that he is needing a refill on Ezetimibe and Metoprolol. He is aware he is due for a f/u appt for medication refills but is needing his medications sent to the [facility] pharmacy. He is scheduled for 12/28/2022 with Richard for a f/u appt. Please advise. T [facility] 2022-11-26 11:14:33 Formatting of this n ote might be different from the original. Contacted pt on 11/26/22 to schedule DSE, no answer, lvmtrc. I will contact pt again this afternoon to try to schedule. Tip Hunt [facility] 2022-11-25 22:05:07 Addended by: QUENTIN RAMOS MD on: 11/25/2022 10:05 PM Modules accepted: Orders [facility] 2022-11-18 22:28:42 Formatting of this n ote might be different from the original. The patient was seen in the hospital for chest pain. We will schedule Lexiscan nuclear stress test to assess ischemia. The patient cannot afford nuclear stress test. Switch to dobutamine stress echo. [facility] 2022-11-09 18:32:09 Summary: RN DC note Patient dc'd. Patient alert and oriented times 4; ambulatory without assistance at time of dc patient verbalized understanding of all dc info. Patient requested to ambulate downstairs to his personal vehicle to go home. Work note provided to pt to return to work tomorrow without limitations per sandhya lewis. T Peyton Costa RN [facility] 2022-11-09 18:16:24 Formatting of this n ote might be different from the original. Problem: Venous Thromboembolism, (actual or risk of) Goal: Absence of venous thromboembolism (Risk) 11/09/20221815 by Peyton Costa RN Outcome: Adequate for discharge 11/09/2022 1344 by Peyton Costa RN Outcome: Progressing as expected Problem: Discharge Planning Goal: Adequate for discharge 11/09/20221815 by Peyton Costa RN Outcome: Adequate for discharge 11/09/2022 1344 by Peyton Costa RN Outcome: Progressing as expected Goal: Knowledge of medication management 11/09/20221815 by Peyton Costa RN Outcome: Adequate for discharge 11/09/2022 1344 by Peyton Costa RN Outcome: Progressing as expected Problem: Cardiac Output - Decreased Goal: Absence of signs and symptoms of decreased cardiac output 11/09/20221815 by Peyton Costa RN Outcome: Adequate for discharge 11/09/2022 1344 by Peyton Costa RN Outcome: Progressing as expected Problem: Falls, Risk of Goal: Absence of falls 11/09/20221815 by Peyton Costa RN Outcome: Adequate for discharge 11/09/2022 1344 by Peyton Costa RN Outcome: Progressing as expected Problem: Pain Goal: Control of pain at or below patient's documented comfort goal 11/09/2022 1816 by Peyton Costa RN Outcome: Adequate for discharge 11/09/2022 1344 by Peyton Costa RN Outcome: Progressing as expected Goal: Reduction in pain sensation 11/09/2022 1816 by Peyton Costa RN Outcome: Adequate for discharge 11/09/2022 1344 by Peyton Costa RN Outcome: Progressing as expected Problem: Skin integrity Impaired (Risk or Actual) Goal: Prevention of new skin breakdown 11/09/20221815 by Peyton Costa RN Outcome: Adequate for discharge 11/09/2022 1344 by Peyton Costa RN Outcome: Progressing as expected Problem: Tissue Perfusion, Cardiopulmonary - Altered Goal: Circulatory function within specified parameters 11/09/20221815 by Peyton Costa RN Outcome: Adequate for discharge 11/09/2022 1344 by Peyton Costa RN Outcome: Progressing as expected [facility] [place] 2022-11-09 13:44:45 Formatting of this n ote might be different from the original. Problem: Venous Thromboembolism, (actual or risk of) Goal: Absence of venous thromboembolism (Risk) Outcome: Progressing as expected Problem: Discharge Planning Goal: Adequate for discharge Outcome: Progressing as expected Goal: Knowledge of medication management Outcome: Progressing as expected Problem: Cardiac Output - Decreased Goal: Absence of signs and symptoms of decreased cardiac output Outcome: Progressing as expected Problem: Falls, Risk of Goal: Absence of falls Outcome: Progressing as expected Problem: Pain Goal: Control of pain at or below patient's documented comfort goal Outcome: Progressing as expected Goal: Reduction in pain sensation Outcome: Progressing as expected Problem: Skin integrity Impaired (Risk or Actual) Goal: Prevention of new skin breakdown Outcome: Progressing as expected Problem: Tissue Perfusion, Cardiopulmonary - Altered Goal: Circulatory function within specified parameters Outcome: Progressing as expected [facility] 2022-11-08 21:25:40 Formatting of this n ote might be different from the original. Problem: Venous Thromboembolism, (actual or risk of) Goal: Absence of venous thromboembolism (Risk) Outcome: Progressing as expected Problem: Discharge Planning Goal: Adequate for discharge Outcome: Progressing as expected Goal: Knowledge of medication management Outcome: Progressing as expected Problem: Cardiac Output - Decreased Goal: Absence of signs and symptoms of decreased cardiac output Outcome: Progressing as expected Problem: Falls, Risk of Goal: Absence of falls Outcome: Progressing as expected Problem: Pain Goal: Control of pain at or below patient's documented comfort goal Outcome: Progressing as expected Goal: Reduction in pain sensation Outcome: Progressing as expected Problem: Skin integrity Impaired (Risk or Actual) Goal: Prevention of new skin breakdown Outcome: Progressing as expected Problem: Tissue Perfusion, Cardiopulmonary - Altered Goal: Circulatory function within specified parameters Outcome: Progressing as expected Roselyn Nielson RN [facility] 2022-11-08 20:06:13 Formatting of this n ote might be different from the original. Patient admitted to med/surg for diagnosis of chest pain Patient agrees to admission, discussed plan of care with patient and family. Patient is awake, alert, oriented, resp reg unlabored, color appropriate for race, PIV intact No adverse reaction to medications administered while in ED Belongings with patient to unit Report to Zhane JOSEPH Juani Marley RN [facility] 2022-11-08 17:26:57 Formatting of this n ote might be different from the original. EKG in progress. [facility] 2022-11-08 17:22:30 Formatting of this n ote might be different from the original. 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 Denies cough, fever, chills. Reports SOB. T Elizabet Chang RN [facility] 2022-11-08 17:17:00 Formatting of this n ote is different from the original. EMERGENCY DEPARTMENT ENCOUNTER [facility] Patient Name: Rafael Pulido Date of : 1975 47 year old Exam Room:TX6/TX6 Primary Care Physician: Hien Lovett [facility] Patient Escorted by: Family [5] Mode of Arrival: Personal means [1] EMS Treatment Prior to ED Arrival: PREP COOK treatment: None ED Events Date/Time Event User Comments 11/08/221729 Medical Screening Begins ARVIN MEDINA MD -- [...] pressure. He notes that he had an RI 2 years ago and the symptoms are quite similar. He admits to shortness of breath but denies diaphoresis. Of note, he does use tobacco and currently has 2 cardiac stents. He states right now that his pain is a 7 out of 10. He presents for evaluation. History provided by: Patient Chest Pain Pain location: R chest Pain quality: pressure Pain radiates to: Mid back Pain severity: Moderate Onset quality: Gradual Timing: Intermittent Progression: Waxing and waning Chronicity: New Relieved by: Nothing Worsened by: Nothing Associated symptoms: no abdominal pain, no cough, no [...] Alexander Han MD; Location: [facility] CORONARY STENT 07/2020 LAD and OM FEMUR INTRAMEDULLARY NAILING Left 03/11/2015 Surgeon: Alexander Han MD; Location: [facility] FOOT DEBRIDEMENT Right 03/11/2015 Surgeon: Alexander Han MD; Location: [facility] NAOMY RADIUS ORIF Left 03/12/2015 Surgeon: Rodriguez Robert MD; Location: [facility] SPLINT APPLICATION Left 03/11/2015 Surgeon: Alexander Han MD; Location: [facility] OR LOCATION Allergies No Known Allergies Social History Tobacco Use Some Days; Cigarettes: Last [...] problems. All other systems reviewed and are negative. Endocrine: Endocrine negative Physical Exam ED Triage Vitals [11/08/22 1723] Weight 106.6 kg (235 lb) Actual or estimated Estimated by patient/family report Height 1.88 m (6' 2") BP 120/78 Pulse 67 Resp 14 Temp 36.8 ?C (98.2 ?F) Temp source Oral SpO2 95 % Measured on Room air Physical Exam Vitals reviewed. Constitutional: Appearance: He is well-developed. HENT: [...] normal. Labs Lab Results COMP. METABOLIC PANEL (20036) - Abnormal Result Value Ref Range NA [...] PROTHROMBIN TIME / INR COMP. METABOLIC PANEL (01243) LIPASE TROPONIN I TROPONIN I Orders Placed This Encounter Medications nitroglycerin (NITROSTAT) sublingual tablet 0.4 mg acetaminophen (TYLENOL) tablet 975 mg aspirin tablet 325 mg Procedures EKG Time 1726 Rate 66 Normal sinus Low voltage Brandon normal Intervals normal No acute ischemia Notes & MDM Patient was evaluated for an emergency medical condition related to Chest Pain DDX RI Unstable Angina NSTEMI History and/or review of systems is limited by:History limited: None. Diagnosis/Impression as of 11/09/22 0035 Chest pain, unspecified type Medical Decision Making Problems Addressed: Chest pain, unspecified type: acute illness or injury Amount and/or Complexity of Data Reviewed Labs: ordered. Decision-making details documented in ED Course. Radiology: ordered and independent interpretation performed. Decision-making details documented in ED Course. ECG/medicine tests: ordered and independent interpretation performed. Decision-making details documented in ED Course. Risk OTC drugs. Prescription drug management. Limitations to patient care and compliance: none. Assessment/Summary: The patient is a 47-year-old gentleman with a history of coronary disease with 2 stents who presents with chest pressure. He also admits to smoking as well. He states 2 years ago he had similar pain in which at that time he had an RI. He states throughout the day he has [...] admitted to the medicine service for rule out. History, physical exam findings, results of visit, differential diagnosis, medication regimens and plan of future care have been considered. Additional MDM may be found in the ED course. Differential diagnosis considered and final disposition made based on information gathered during evaluation and may not be completely ruled out or specifically listed. Vital signs were rechecked before final disposition. Diagnosis Final diagnoses: [R07.9] Chest pain, unspecified type (Primary) Disposition & Follow Up ED Disposition ED Disposition Admit - Observation Condition -- Comment Is (or was) this a planned re-admission?: No Treatment Team: [facility] [[id number]] Is this patient COVID positive or a [...] tablet Comments: Reason for Stopping: Arvin Medina Jr., MD Clinical [employer] Equipment Mechan[employer] [facility] Emergency Department [employer] is used frequently and may produce errors. Promptly contact for obvious discrepancies. Arvin Medina MD 11/09/22 0036 [facility] 2022-11-08 17:17:00 Formatting of this n ote might be different from the original. AdmissionCare Guideline: Chest Pain - OBS, Observation Based on the indications selected for the patient, the bed status of Admit to Observation was determined to be MET The following indications were selected as present at the time of evaluation of the patient: Chest pain (or other anginal equivalent) not classified as low risk for acute coronary syndrome, as indicated by 1 or more of the following: - - Patient classified as intermediate risk or high risk for acute coronary syndrome (eg, via use of a clinical decision tool or risk calculator (eg, HEART score greater than 3)) AdmissionCare documentation entered by: Arvin Medina [facility] [employer], 27th edition, Copyright 2022 [facility] [employer] [facility] All Rights Reserved. [id number]:32-05:00 [facility] [employer] [facility]
[2023-12-31] MEDS ORDERED: ASPIRIN 81 MG CHEWABLE TABLET ONE (15:11)
[2023-12-31 15:28] LABS: Absolute Basophils 0.1 K/uL (0-0.5); Absolute Eosinophils 0.1 K/uL (0-0.5); Absolute Lymphocytes (CBC) 2.4 K/uL (0.7-4.9); Absolute Monocytes 0.4 K/uL (0.1-1.3); Absolute Neutrophil 5.2 K/uL (1.8-8.0); Basophils % 0.7 % (0-1.3); Eosinophils % 1.4 % (0-4.4); Hematocrit 43.4 % (39.6-49.0); Hemoglobin 14.8 g/dL (13.6-17.9); Lymphocytes % 29.4 % (15.3-44.8); MCH 31.5 pg (27.0-35.0); MCHC 34.1 g/dL (32.0-36.0); MCV 92.4 fL (80-100); MPV 8.1 fL (7.6-11.3); Monocytes % 4.6 % (3.3-12.3); Neutrophils % 63.9 % (41.7-73.7); Platelets 255 thou/uL (152-406); Red Cell Distribution Width 13.4 % (12.1-15.2)
[2023-12-31 15:47] LABS: Anion Gap 6.6 mEq/L (5.0-15.0); BUN Blood Urea Nitrogen 28 mg/dL (7-18); Bicarbonate 28 mEq/L (21-32); Glomerular Filtration Rate 67 ml/min (=/>90); Glucose Level 127 mg/dL (74-106); NT PRO-BNP 19 pg/mL (<125); Potassium 3.6 mEq/L (3.5-5.1); Sodium Level 141 mEq/L (136-145)
[2023-12-31 15:48] LABS: Troponin High Sensitivity < 3.0 pg/mL (<58.9)
--- NOTE | 2023-12-31 16:09 | ER ---
Nurse's Notes [facility] Name: Rafael Pulido Age: 48 yrs Sex: Male : 1975 Arrival Date: 12/31/2023 Time: 14:56 Bed 14 Private MD: Diagnosis: Chest pain, unspecified Presentation: 12/30 15:06 Acuity: DIVYA 2 aa5 15:06 Chief complaint: Patient states: chest pain, hx of [place], reports being uncomplaint taking aa5 Clopidogrel. Coronavirus screen: At this time, the client does not indicate any symptoms associated with coronavirus-19. Ebola Screen: Patient denies travel to an Ebola-affected area in the 21 days before illness onset. Initial Sepsis Screen: Does the patient meet any 2 criteria? No. Patient's initial sepsis screen is negative. Does the patient have a suspected source of infection? No. Patient's initial sepsis screen is negative. Risk Assessment: Do you want to hurt yourself or someone else? Patient reports no desire to harm self or others. Onset of symptoms was December 31, 2023. 15:06 Method Of Arrival: Ambulatory aa5 Historical: - Allergies: 15:15 NKA; aa5 - PMHx: 15:15 Depression; Myocardial infarction; aa5 - PSHx: 15:15 Stented artery; aa5 - Immunization history:: Adult Immunizations unknown. - Infectious Disease History:: Denies. - Social history:: Smoking status: Patient reports the use of cigarette tobacco products. Screenin:27 [facility] ED Fall Risk Assessment (Adult) History of falling in the last 3 months, kc6 including since admission No falls in past 3 months (0 pts) Confusion or Disorientation No (0 pts) Intoxicated or Sedated No (0 pts) Impaired Gait No (0 pts) Mobility Assist Device Used No (0 pt) Altered Elimination No (0 pt) Score/Fall Risk Level 0 - 2 = Low Risk Oriented to surroundings. Abuse screen: Denies threats or abuse. Denies injuries from another. Nutritional screening: No deficits noted. Tuberculosis screening: No symptoms or risk factors identified. Assessment: 15:27 General: Appears in no apparent distress. comfortable, well groomed, well developed, kc6 Behavior is calm, cooperative, appropriate for age. Pain: Complains of pain in chest Pain does not radiate. Pain currently is 8 out of 10 on a pain scale. Pain began 1 hour ago. Neuro: Level of Consciousness is awake, alert, obeys commands, Oriented to person, place, time, situation, Appropriate for age. Cardiovascular: Reports chest pain, diaphoresis, nausea, Heart tones S1 S2 present Capillary refill < 3 seconds Rhythm is sinus rhythm. Respiratory: Airway is patent Trachea midline Respiratory effort is even, unlabored, Respiratory pattern is regular, symmetrical. GI: Reports nausea, Patient currently denies abdominal pain, diarrhea, vomiting. : No signs and/or symptoms were reported regarding the genitourinary system. EENT: No signs and/or symptoms were reported regarding the EENT system. Derm: No signs and/or symptoms reported regarding the dermatologic system. Skin is intact, is healthy with good turgor, Skin is pink, warm \T\ dry. Musculoskeletal: No signs and/or symptoms reported regarding the musculoskeletal system. Circulation, motion, and sensation intact. Capillary refill < 3 seconds, Range of motion: intact in all extremities. 16:27 Reassessment: No changes from previously documented assessment. Patient and/or family ll1 updated on plan of care and expected duration. Pain level reassessed. Patient is alert, oriented x 3, equal unlabored respirations, skin warm/dry/pink. 16:53 Reassessment: Patient appears in no apparent distress at this time. No changes from kc6 previously documented assessment. Patient and/or family updated on plan of care and expected duration. Pain level reassessed. Patient is alert, oriented x 3, equal unlabored respirations, skin warm/dry/pink. Vital Signs: 15:06 BP 113 / 69; Pulse 78; Resp 18 S; Temp 97.6(TE); Pulse Ox 95% on R/A; Weight 106.59 kg aa5 (R); Height 6 ft. 2 in. (R); Pain 8/10; 16:53 BP 117 / 71; Pulse 78; Resp 16 S; Pulse Ox 95% on R/A; kc6 15:06 Body Mass Index 30.17 (106.59 kg, 187.96 cm) aa5 15:06 Pain Scale: Adult aa5 ED Course: 15:06 Patient arrived in ED. cm10 15:06 Arm band placed on Patient placed in an exam room, on a stretcher. aa5 15:07 Viktoriya Conn, OPAL is Primary Nurse. kc6 15:07 Winnie Cartagena FNP-C is [facility]. kb 15:07 Jeremias Boateng MD is Attending Physician. kb 15:15 Triage completed. aa5 15:27 Patient has correct armband on for positive identification. Bed in low position. Call kc6 light in reach. Side rails up X 1. round kiln drawer on. Pulse ox on. NIBP on. Door closed. Noise minimized. Lights dimmed. Pillow given. 15:27 Inserted saline lock: 18 gauge in right antecubital area, using aseptic technique. kc6 Blood collected. Flushed with 10 mL NS. Patient maintains SpO2 saturation greater than 95% on room air. 16:09 Álvaro Bradford MD is Hospitalizing Provider. kb 16:32 PO fluids given. ll1 16:33 XRAY Chest (1 view) In Process Unspecified. EDMS 17:27 No provider procedures requiring assistance completed. Patient admitted, IV remains in kc6 place. Administered Medications: 15:28 Drug: Aspirin PO Chewable Tablet 324 mg PO once; 81 mg tablets x 4 Route: PO; kc6 16:01 Follow up: Response: No adverse reaction [facility] 16:15 CANCELLED (Physician Discretion): morphineor iv 2 mg IVP once over 4 mins; verbal with kb read back 16:27 Drug: morphine IVP or IV 4 mg IVP once over 4 mins {Note: RASS 0, pain 8/10.} Route: ll1 IVP; Infused Over: 4 mins; Site: right antecubital; 16:49 Follow up: Response: No adverse reaction; Pain is decreased; RASS: Alert and Calm (0) ll1 16:27 Drug: Ondansetron IVP 4 mg IVP once; over 2 minutes Route: IVP; Site: right antecubital;ll1 16:49 Follow up: Response: No adverse reaction ll1 Medication: 17:27 VIS not applicable for this client. kc6 Outcome: 16:09 Decision to Hospitalize by Provider. kb 17:27 Admitted to Med/surg accompanied by tech, via wheelchair, room 228, with chart, kc6 17:27 Condition: good 17:27 Instructed on the need for admit, 17:27 Patient left the ED. [facility] Signatures: Dispatcher [employer] EDMS Nino Cartagenaistin, COMMUNITY PHARMACIST-C COMMUNITY PHARMACIST-Ckb Casie Snell, RN RN aa5 Nola Winkler, RN RN ll1 Viktoriya Conn, RN RN kc6 Caro Linton, RN RN cm10
--- NOTE | 2023-12-31 16:09 | EDPHYS ---
Physician Documentation [facility] Name: Rafael Pulido Age: 48 yrs Sex: Male : 1975 Arrival Date: 12/31/2023 Time: 14:56 Bed 14 Private MD: ED Physician Jeremias Boateng HPI: 12/30 16:02 This 48 yrs old Male presents to ER via Ambulatory with complaints of Chest Pain. 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 States kb he then developed back pain, nausea and diaphoresis. States this is exactly how his symptoms were when he had a maker [place] a few years ago so he came in for evaluation. Denies alleviating or aggravating factors. . Historical: - Allergies: 15:15 NKA; aa5 - PMHx: 15:15 Depression; Myocardial infarction; aa5 - PSHx: 15:15 Stented artery; aa5 - Immunization history:: Adult Immunizations unknown. - Infectious Disease History:: Denies. - Social history:: Smoking status: Patient reports the use of cigarette tobacco products. ROS: 16:02 Constitutional: As per HPI kb Exam: 15:44 Constitutional: This is a well developed, well nourished patient who is awake, alert, kb and in no acute distress. Head/Face: Normocephalic, atraumatic. ENT: Moist Mucous membranes Cardiovascular: Regular rate Respiratory: Respirations even and unlabored. No increased work of breathing. Talking in full sentences Abdomen/GI: Soft, non-tender. No distention Skin: Warm, dry with normal turgor. Normal color. MS/ Extremity: Pulses equal, no cyanosis. Neurovascular intact. Full, normal range of motion. Neuro: Awake and alert, GCS 15, oriented to person, place, time, and situation. Moves all extremities. Normal gait. 15:44 ECG was reviewed by the Attending Physician. Vital Signs: 15:06 BP 113 / 69; Pulse 78; Resp 18 S; Temp 97.6(TE); Pulse Ox 95% on R/A; Weight 106.59 kg aa5 (R); Height 6 ft. 2 in. (R); Pain 8/10; 16:53 BP 117 / 71; Pulse 78; Resp 16 S; Pulse Ox 95% on R/A; kc6 15:06 Body Mass Index 30.17 (106.59 kg, 187.96 cm) aa5 15:06 Pain Scale: Adult aa5 MDM: 15:07 Patient medically screened. kb 16:03 Differential diagnosis: abnormal EKG, acute myocardial infarction, coronary artery kb disease. The patient was given aspirin in the Emergency Department. Data reviewed: vital signs, nurses notes. Consideration of Admission/Observation Patient was admitted/placed on observation. Escalation of care including admission/observation considered. Counseling: I had a detailed discussion with the patient and/or guardian regarding the historical points, exam findings, and any diagnostic results supporting the discharge/admit diagnosis, lab results, radiology results, the need for further work-up and treatment in the hospital. 16:06 Management of patient was discussed with the following: Hospitalist: Hospitalist team, kaya pt accepted for admission under Dr Bradford. 12/30 15:08 Order name: Basic Metabolic Panel; Complete Time: 15:49 kb 12/30 15:08 Order name: CBC with Diff; Complete Time: 15:29 kb 12/30 15:08 Order name: Magnesium; Complete Time: 15:49 kb 12/30 15:08 Order name: NT PRO-BNP; Complete Time: 15:49 kb 12/30 15:08 Order name: Troponin HS; Complete Time: 15:49 kb 12/30 16:34 Order name: Lipid Profile EDMS 12/30 16:34 Order name: Lipid Profile EDMS 12/30 16:34 Order name: Troponin High Sensitivity EDMS 12/30 16:34 Order name: Troponin High Sensitivity EDMS 12/30 16:34 Order name: Troponin High Sensitivity EDMS 12/30 16:34 Order name: Troponin High Sensitivity EDMS 12/30 16:34 Order name: Troponin High Sensitivity EDMS 12/30 16:36 Order name: Basic Metabolic Panel EDMS 12/30 16:36 Order name: Basic Metabolic Panel EDMS 12/30 16:36 Order name: Basic Metabolic Panel EDMS 12/30 16:36 Order name: Basic Metabolic Panel EDMS 12/30 16:36 Order name: Basic Metabolic Panel EDMS 12/30 16:36 Order name: CBC with Automated Diff EDMS 12/30 16:36 Order name: CBC with Automated Diff EDMS 12/30 16:36 Order name: CBC with Automated Diff EDMS 12/30 16:36 Order name: CBC with Automated Diff EDMS 12/30 16:36 Order name: CBC with Automated Diff EDMS 12/30 16:36 Order name: Lipid Profile EDMS 12/30 16:36 Order name: Lipid Profile EDMS 12/30 16:36 Order name: Troponin High Sensitivity EDMS 12/30 16:36 Order name: Troponin High Sensitivity EDMS 12/30 16:36 Order name: Troponin High Sensitivity EDMS 12/30 16:36 Order name: Troponin High Sensitivity EDMS 12/30 15:08 Order name: XRAY Chest (1 view); Complete Time: 16:42 kb 12/30 16:36 Order name: Echo with Doppler EDMS 12/30 15:08 Order name: EKG; Complete Time: 15:08 kb 12/30 16:34 Order name: CONS Physician Consult EDMS 12/30 16:36 Order name: CONS Physician Consult EDMS 12/30 15:08 Order name: Cardiac monitoring; Complete Time: 15:14 kb 12/30 15:08 Order name: EKG - Nurse/Tech; Complete Time: 15:14 kb 12/30 15:08 Order name: IV Saline Lock; Complete Time: 15:27 kb 12/30 15:08 Order name: Labs collected and sent; Complete Time: 15:27 kb 12/30 15:08 Order name: O2 Per Protocol; Complete Time: 15:14 kb 12/30 15:08 Order name: O2 Sat Monitoring; Complete Time: 15:14 kb EC:44 Rate is 77 beats/min. Rhythm is regular. QRS [place] is Normal. FL interval is normal at kb 176 msec. QRS interval is normal at 76 msec. QT interval is normal at 405 msec. Administered Medications: 15:28 Drug: Aspirin PO Chewable Tablet 324 mg PO once; 81 mg tablets x 4 Route: PO; kc6 16:01 Follow up: Response: No adverse reaction kc6 16:15 CANCELLED (Physician Discretion): morphineor iv 2 mg IVP once over 4 mins; verbal with kb read back 16:27 Drug: morphine IVP or IV 4 mg IVP once over 4 mins {Note: RASS 0, pain 8/10.} Route: ll1 IVP; Infused Over: 4 mins; Site: right antecubital; 16:49 Follow up: Response: No adverse reaction; Pain is decreased; RASS: Alert and Calm (0) ll1 16:27 Drug: Ondansetron IVP 4 mg IVP once; over 2 minutes Route: IVP; Site: right antecubital;ll1 16:49 Follow up: Response: No adverse reaction ll1 Disposition Summary: 12/31/23 16:09 Hospitalization Ordered Notes: Hospitalization Status: Observation kb Provider: Álvaro Bradford Location: Telemetry/MedSurg (observation) kb Condition: Stable kb Problem: new kb Symptoms: are unchanged kb Bed/Room Type: Standard Room Assignment: 228(12/31/23 16:43) eb Diagnosis - Chest pain, unspecified kb Forms: - Medication Reconciliation Form kb - SBAR form kb - Leadership Thank You Letter kb Addendum: 01/02/2024 09:22 I was immediately available for consultation during this patient's visit. I did not e c2 personally see the patient or discuss the patient with the KAUSHIK. . Signatures: Dispatcher [employer] Winnie Garcia, [employer] PROGRAM DIRECTOR-Casie Florian, RN RN aa5 Patricia Schneider Lynsay, RN RN ll1 Viktoriya Conn RN RN kc6 Jeremias Boateng MD MD ec2 Corrections: (The following items were deleted from the chart) 12/30 16:15 16:15 morphine IVP or IV 2 mg IVP once over 4 mins; verbal with read back ordered. kc6 kb 16:43 16:09 kb eb
[2023-12-31] MEDS ORDERED: MORPHINE 4 MG/ML SYR ONE (16:19)
[2023-12-31] MEDS ORDERED: ONDANSETRON 4 MG/2 ML VIAL ONE (16:19)
[2023-12-31] MEDS: METOPROLOL XL 25 MG TAB PO SCH (16:26)
[2023-12-31] MEDS ORDERED: MORPHINE 4 MG/ML SYR IV PRN (16:28)
[2023-12-31] MEDS ORDERED: ONDANSETRON 4 MG/2 ML VIAL IV PRN (16:28)
[2023-12-31] MEDS ORDERED: NITROGLYCERIN 0.4 MG/TAB SL PRN (16:29)
--- NOTE | 2023-12-31 16:35 | RAD REPORT ---
EXAMINATION: ONE VIEW CHEST XR CLINICAL INDICATION: CHEST PAIN TECHNIQUE: Frontal chest projection is submitted. Examination is limited by patient positioning and t echnique. COMPARISON: 04/19/2023 FINDINGS: Mild interstitial pulmonary edema probably present. The heart is upper limit of normal in size. No di splaced fractures identified. IMPRESSION: Mild CHF versus volume overload pattern is suspected.
--- NOTE | 2023-12-31 16:49 | P.HP ---
Certification for Inpatient Patient admitted to: Inpatient With expected LOS: >2 Midnights Patient will require the following post-hospital care: None Practitioner: I am a practitioner with admitting privileges, knowledge of patient current condition, hospital course, and medical plan of care. Services: Services provided to patient in accordance with Admission requirements found in Title 42 Section 412.3 of the Code of Federal Regulations Patient History Date of Service: 12/31/23 Reason for admission: unstable angina History of Present Illness: Mr. Pulido is a 48-year-old gentleman with a past medical history of hypertension, hyperlipidemia, CAD with PCI x 2. He sees Dr. Ramos in [place] and his medications were obtained from his pharmacy registry. He states he had a echocardiogram in [place] 1 month ago and it was said to be normal. Mr. Pulido presented to the emergency department today with a complaint of chest pain that was exactly as he felt when he had his first heart attack. He states there is a 3 inch [place] to the right chest wall with pain that radiates to the same 3 inch [place] on his back. He describes a whooshing sensation and then nausea, diaphoresis, and severe/extreme exhaustion. EKG (normal sinus rhythm without ectopy) and troponin (less than 3) from the emergency department are within normal limits. Chest x-ray shows mild overload pattern. Chem-7 with mild bump in creatinine at 1.33 with a GFR of 67. We will admit him on a heparin drip for unstable angina symptoms with consultation to cardiology Allergies No Known Allergies Allergy (Verified 04/20/23 19:17) Home medications list reviewed: Yes (Plavix - noncompliant) Home Medications: RX: Aspirin [Aspirin EC] 81 mg PO DAILY 04/19/23 RX: Atorvastatin Calcium [Lipitor] 80 mg PO BEDTIME 04/19/23 RX: Clopidogrel Bisulfate [Plavix*] 75 mg PO DAILY 04/19/23 RX: Ezetimibe 10 mg PO DAILY 04/19/23 RX: Omeprazole Magnesium [Prilosec Otc] 1 tab PO DAILY 04/19/23 - Past Medical/Surgical History Has patient received pneumonia vaccine in the past: No Diabetic: No -: [place] -: PCI x 2 Psychosocial/ Personal History: Lives at home with his fiance. 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 - Social History Smoking Status: Current every day smoker (States less than a pack a day) Smoking therapy provided: Yes (Negative) Alcohol use: No CD- Drugs: No Caffeine use: Yes Place of Residence: Home Review of Systems 10-point ROS is otherwise unremarkable General: Malaise Respiratory: Other (Denies SOB) Cardiovascular: Chest Pain, [place] Gastrointestinal: Nausea Genitourinary: Unremarkable Musculoskeletal: Unremarkable Integumentary: Other (Diaphoresis) Neurological: Weakness Lymphatics: Unremarkable Physical Examination - Vital Signs Blood Pressure: 117/74 Pulse: 77 Respirations: 16 Pulse Ox (%): 98 - Physical Exam General: Alert, In no apparent distress, Oriented x3 HEENT: Atraumatic, Normocephalic Neck: Supple Respiratory: Normal air movement Cardiovascular: Normal pulses, Regular rate/rhythm Capillary refill: <2 Seconds Gastrointestinal: Normal bowel sounds Musculoskeletal: No clubbing, No swelling Integumentary: No rashes Neurological: Normal speech, Normal tone, Normal affect Lymphatics: No axilla or inguinal lymphadenopathy External genitalia: Deferred Rectal: Deferred - Studies Laboratory Data (last 24 hrs) 12/31/23 12/31/23 15:20 15:20 WBC 8.20 Hgb 14.8 Hct 43.4 Plt Count 255 Sodium 141 Potassium 3.6 BUN 28 H Creatinine 1.33 H Glucose 127 H Magnesium 2.0 Assessment and Plan - Plan Unstable angina Plan: 1. Serial troponins and EKG 2. Appreciate consultation from cardiology 3. Echocardiogram if cardiology is agreeable 4. Antiplatelet therapy, anticoagulation, beta-vandana, statin, and O2 as needed 5. IV morphine for pain control 6. Nitro prn Heparin drip nursing PT/PTT protocol Mild volume overload Hold IVF Monitor creatinine, assess for shortness of breath Hypertension Per patient regimen Hyperlipidemia Atorvastatin Zetia VTE/GI prophylaxis Heparin drip/Protonix Discharge Plan: Home Plan to discharge in: Greater than 2 days - Advance Directives Does patient have a Living Will: No Does patient have a Durable POA for Healthcare: No - Code Status/Comfort Care Code Status Assessed: Yes (Full)
[2023-12-31] MEDS ORDERED: HEPARIN/D5W 25,000 UNIT/500 ML BAG IV SCH (17:00)
[2023-12-31] MEDS: METOPROLOL TARTRATE 5 MG/5 ML INJ IV SCH (17:00)
[2023-12-31] MEDS ORDERED: SODIUM CHLORIDE 0.9% 10ML INJ IV PRN (17:22)
[2023-12-31 17:45] VITALS: BMI 31.4
[2023-12-31] MEDS: METOPROLOL TAR 50 MG TAB PO SCH (17:52)
[2023-12-31] MEDS ORDERED: METOPROLOL XL 25 MG TAB PO SCH (18:00)
[2023-12-31] MEDS: HEPARIN/D5W 25,000 UNIT/500 ML BAG IV SCH (18:07)
[2023-12-31] MEDS: MORPHINE 4 MG/ML SYR IV PRN (20:16)
[2023-12-31] MEDS: ATORVASTATIN 80 MG TAB PO SCH (20:16)
[2023-12-31] MEDS: EZETIMIBE 10 MG TAB PO SCH (20:16)
[2023-12-31] MEDS ORDERED: ATORVASTATIN 40 MG TAB PO SCH (21:00)
[2024-01-01 04:34] LABS: Absolute Basophils 0.1 K/uL (0-0.5); Absolute Eosinophils 0.1 K/uL (0-0.5); Absolute Lymphocytes (CBC) 2.4 K/uL (0.7-4.9); Absolute Monocytes 0.7 K/uL (0.1-1.3); Basophils % 0.7 % (0-1.3); Hemoglobin 14.9 g/dL (13.6-17.9); MCH 31.9 pg (27.0-35.0); MCHC 34.8 g/dL (32.0-36.0); MCV 91.7 fL (80-100); MPV 7.9 fL (7.6-11.3); Monocytes % 9.2 % (3.3-12.3); Neutrophils % 55.1 % (41.7-73.7); Nucleated Red Blood Cells % 0.1 % (0-0); Platelets 211 thou/uL (152-406); RBC Red Blood Cell Count 4.69 M/uL (4.33-5.43); Red Cell Distribution Width 13.3 % (12.1-15.2)
[2024-01-01 04:49] LABS: Anion Gap 5.2 mEq/L (5.0-15.0); Potassium 4.2 mEq/L (3.5-5.1); Troponin High Sensitivity 5.2 pg/mL (<58.9)
[2024-01-01] MEDS: ASPIRIN EC 81 MG TAB PO SCH (08:26)
[2024-01-01] MEDS: PANTOPRAZOLE 40 MG INJ IVP SCH (08:26)
--- NOTE | 2024-01-01 08:50 | P.PN ---
Subjective Date of Service: 01/01/24 Chief Complaint: unstable angina Subjective: No new changes resting quietly, no c/o Review of Systems 10-point ROS is otherwise unremarkable General: Unremarkable Eyes: Unremarkable ENT: Unremarkable Respiratory: Unremarkable Cardiovascular: Unremarkable Gastrointestinal: Unremarkable Genitourinary: Unremarkable Musculoskeletal: Unremarkable Integumentary: Unremarkable Neurological: Unremarkable Lymphatics: Unremarkable Physical Examination - Vital Signs Temperature: 97.6 F Blood Pressure: 115/64 Pulse: 65 Respirations: 16 Pulse Ox (%): 95 - Physical Exam General: In no apparent distress HEENT: Atraumatic, Normocephalic Neck: Supple Respiratory: Normal air movement Cardiovascular: Regular rate/rhythm, Normal S1 S2 Capillary refill: <2 Seconds Gastrointestinal: Soft and benign Musculoskeletal: No clubbing, No swelling Integumentary: No rashes Neurological: Normal tone, Normal affect Lymphatics: No axilla or inguinal lymphadenopathy External genitalia: Deferred Rectal: Deferred - Studies Laboratory Data (last 24 hrs) 12/31/23 12/31/23 15:20 15:20 WBC 8.20 Hgb 14.8 Hct 43.4 Plt Count 255 Sodium 141 Potassium 3.6 BUN 28 H Creatinine 1.33 H Glucose 127 H Magnesium 2.0 Assessment And Plan - Plan Unstable angina Plan: 1. Serial troponins and EKG 2. Appreciate consultation from cardiology 3. Echocardiogram if cardiology is agreeable 4. Antiplatelet therapy, anticoagulation, beta-vandana, statin, and O2 as needed 5. IV morphine for pain control 6. Nitro prn Heparin drip nursing PT/PTT protocol Mild volume overload Hold IVF Monitor creatinine, assess for shortness of breath Hypertension Per patient regimen Hyperlipidemia Atorvastatin Zetia 01/01/24 no changes await [facility] Tuesday continue to monitor VTE/GI prophylaxis Heparin drip/Protonix Time Spent Managing PTS Care (In Minutes): 21
[2024-01-01] MEDS ORDERED: ASPIRIN 325 MG TAB PO SCH (09:00)
[2024-01-01] MEDS: ACETAMIN/CAFFEINE/BUTALB TAB PO PRN (09:33)
--- NOTE | 2024-01-01 12:40 | P.CNS ---
Date of Consult: 01/01/24 Chief Complaint: unstable angina History of Present Illness: Patient with PMH of CAD s/p PCI 2 years ago, presented with right sided chest pain, radiating to his back, associated with sweating and diapharesis, report it is the same pain when he had his heart attack, denies any left side chest pain, no neck pain, he has been feeling weak, fatigued and under lot of stress at work, no SOB, no palpitations, no syncope. Allergies No Known Allergies Allergy (Verified 04/20/23 19:17) Home medications list reviewed: Yes Home Medications: Aspirin [Aspirin EC] 81 mg PO DAILY 04/19/23 Atorvastatin Calcium [Lipitor] 80 mg PO BEDTIME 04/19/23 Clopidogrel Bisulfate [Plavix*] 75 mg PO DAILY 04/19/23 Ezetimibe 10 mg PO DAILY 04/19/23 Omeprazole Magnesium [Prilosec Otc] 40 mg PO DAILY 04/19/23 Metoprolol Tartrate [Lopressor] 50 mg PO BID 12/31/23 - Past Medical/Surgical History Diabetic: No -: [place] -: stents x 2 -: PCI x 2 Psychosocial/ Personal History: Lives at home with his fiance. 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 - Social History Smoking Status: Current every day smoker Alcohol use: No CD- Drugs: No Caffeine use: Yes Place of Residence: Home Review of Systems 10-point ROS is otherwise unremarkable Physical Examination Temp Pulse Resp BP Pulse Ox 97.6 F 65 16 115/64 95 01/01/24 10:15 01/01/24 10:15 01/01/24 10:15 01/01/24 10:15 01/01/24 10:15 General: Alert, In no apparent distress HEENT: Atraumatic, PERRLA, Mucous membr. moist/pink, EOMI, Sclerae nonicteric Neck: Supple, 2+ carotid pulse no bruit, No LAD, Without JVD or thyroid abn ormality Respiratory: Clear to auscultation bilaterally, Normal air movement Cardiovascular: Regular rate/rhythm, Normal S1 S2 Gastrointestinal: Normal bowel sounds, No tenderness Musculoskeletal: No tenderness Integumentary: No rashes Neurological: Normal gait, Normal speech, Normal tone, Normal affect Lymphatics: No axilla or inguinal lymphadenopathy Laboratory Data (last 24 hrs) 12/31/23 12/31/23 15:20 15:20 WBC 8.20 Hgb 14.8 Hct 43.4 Plt Count 255 Sodium 141 Potassium 3.6 BUN 28 H Creatinine 1.33 H Glucose 127 H Magnesium 2.0 - Problems (1) HTN (hypertension) Current Visit: Yes Status: Acute Plan: BP is normal off medications, continue to monitor. (2) HLD (hyperlipidemia) Current Visit: Yes Status: Acute Plan: continue lipitor and zetia. (3) CAD (coronary artery disease) Current Visit: No Status: Acute Plan: patient with history of CAD, PCI 2 years ago, coronary angiogram early this year that shown patent stent but patient is concerned that it is the same pain when he had his heart attack NPO after midnight for exercise stress nuclear test (Cardiolite) in am. continue ASA 81 mg daily Qualifiers: Coronary Disease-Associated Artery/Lesion type: [place] artery [place] vs. transplanted heart: [place] heart Associated angina: with stable angina Qualified Code(s): I25.118 - Atherosclerotic heart disease of [place] coronary artery with other forms of angina pectoris
[2024-01-02 01:22] VITALS: O2SAT 93
[2024-01-02 04:45] LABS: Absolute Basophils 0.1 K/uL (0-0.5); Absolute Eosinophils 0.1 K/uL (0-0.5); Absolute Lymphocytes (CBC) 2.4 K/uL (0.7-4.9); Absolute Monocytes 0.6 K/uL (0.1-1.3); Absolute Neutrophil 3.7 K/uL (1.8-8.0); Basophils % 0.8 % (0-1.3); Eosinophils % 2.1 % (0-4.4); Hematocrit 45.8 % (39.6-49.0); Hemoglobin 15.9 g/dL (13.6-17.9); Lymphocytes % 34.9 % (15.3-44.8); MCH 32.1 pg (27.0-35.0); MCHC 34.7 g/dL (32.0-36.0); MCV 92.4 fL (80-100); MPV 7.8 fL (7.6-11.3); Monocytes % 8.8 % (3.3-12.3); Neutrophils % 53.4 % (41.7-73.7); Nucleated Red Blood Cells % 0.1 % (0-0); Platelets 222 thou/uL (152-406); RBC Red Blood Cell Count 4.96 M/uL (4.33-5.43); Red Cell Distribution Width 13.4 % (12.1-15.2)
[2024-01-02 05:05] LABS: Anion Gap 5.7 mEq/L (5.0-15.0); Potassium 4.7 mEq/L (3.5-5.1)
--- NOTE | 2024-01-02 10:09 | RAD REPORT ---
EXAM: Nuclear medicine cardiac perfusion examination with ejection fraction HISTORY: Chest pain [facility] MAIN CP TECHNIQUE: Rest images: 10.9 mCi technetium 99m sestamibi Stress images: 31.1 mCi of technetium 99m sestamibi COMPARISON: None. FINDINGS: Tomographic images: No fixed or reversible perfusion defects. No finding to suspect hibernating myocardium. Ejection fraction of 55%. EDV: 108 mL ESV: 49 mL LHR: 0.34 TID: 0.8 IMPRESSION: No evidence of stress induced ischemia.
--- NOTE | 2024-01-02 10:33 | P.PN ---
Subjective Date of Service: 01/02/24 Chief Complaint: unstable angina Subjective: No new changes, No C/O voiced, Tolerating diet, Ambulating, Improving Review of Systems 10-point ROS is otherwise unremarkable Physical Examination - Vital Signs Temperature: 97.4 F Blood Pressure: 114/64 Pulse: 71 Respirations: 14 Pulse Ox (%): 93 - Physical Exam General: Alert, In no apparent distress HEENT: Atraumatic, PERRLA, EOMI Neck: Supple, JVD not distended Respiratory: Clear to auscultation bilaterally, Normal air movement Cardiovascular: Regular rate/rhythm, Normal S1 S2 Gastrointestinal: Normal bowel sounds, No tenderness Musculoskeletal: No tenderness Integumentary: No rashes Neurological: Normal speech, Normal tone, Normal affect Lymphatics: No axilla or inguinal lymphadenopathy - Studies Medications List Reviewed: Yes Assessment And Plan - Current Problems (Diagnosis) (1) HTN (hypertension) Current Visit: Yes Status: Acute Plan: BP is normal off medications, continue to monitor. no need for medications at discharge. (2) HLD (hyperlipidemia) Current Visit: Yes Status: Acute Plan: continue lipitor and zetia. (3) CAD (coronary artery disease) Current Visit: No Status: Acute Plan: patient with history of CAD, PCI 2 years ago, coronary angiogram early this year that shown patent stent but patient is concerned that it is the same pain when he had his heart attack Patient had a stress test that is normal. continue ASA 81 mg daily ok to discharge from cardiac standpoint. Qualifiers: Coronary Disease-Associated Artery/Lesion type: [place] artery [place] vs. transplanted heart: [place] heart Associated angina: with stable angina Qualified Code(s): I25.118 - Atherosclerotic heart disease of [place] coronary artery with other forms of angina pectoris
--- NOTE | 2024-01-02 11:24 | TREADMILL ---
70% H.R.: 85% H.R.: 144 90% H.R.: 100% H.R.: DX: CHEST PAIN Date of Study: 01/02/2024 Ht: 6' 2 " Wt: 235 lb 0 oz Consulting Physician: VIKTORIYA MEDICATIONS: FIORICET, ASPIRIN, LIPITOR, ZETIA, HEPARIN, LOPRESSOR, MORPHINE, NITROSTAT, ZOFRAN HISTORY: HISTORY OF HYPERTENSION, HYPERLIPIDEMIA, CARDIAC STENT 2021 PHYSICIAL EXAMINATION: RESTING B.P.: 106/65 RESTING H.R.: 73 RESTING EKG: NORMAL SINUS RHYTHM PROTOCOL: HAVEN STRESS TEST EXERCISE TIME: 8:30 MAXIMUM HEART RATE: 154 88 % OF PREDICTED B.P. AT PEAK STRESS: 152/65 IMPRESSION: HAVEN PROTOCOL STRESS TEST PERFORMED ORDERED. CARDIOLITE INJECTED PER PROTOCOL (SEE NUCLEAR MEDICINE REPORT). PREMATURE ATRIAL COMPLEXES NOTED PRE PROCEDURE. NO ARRHYTHMIAS NOTED DURING PROCEDURE. NO SUPRAVENTRICULAR TACHYCARDIA, NO VENTRICULAR TACHYCARDIA NOTED. PATIENT COMPLAINTS OF CHEST TIGHTNESS DURING PROCEDURE, CHEST PAIN SUBSIDED POST PROCEDURE. NEGATIVE FOR ISCHEMIA.
[2024-01-02 12:33] VITALS: BP 115/73; TEMP 97
--- NOTE | 2024-01-02 13:38 | P.DS ---
Admission Date: 12/31/23 Discharge Date: 01/02/24 Disposition: ROUTINE DISCHARGE Discharge Condition: GOOD Reason for Admission: unstable angina Brief History of Present Illness: Mr. Pulido is a 48-year-old gentleman with a past medical history of hypertension, hyperlipidemia, CAD with PCI x 2. He sees Dr. Ramos in [place] and his medications were obtained from his pharmacy registry. He states he had a echocardiogram in [place] 1 month ago and it was said to be normal. Mr. Pulido presented to the emergency department today with a complaint of chest pain that was exactly as he felt when he had his first heart attack. He states there is a 3 inch craig to the right chest wall with pain that radiates to the same 3 inch craig on his back. He describes a whooshing sensation and then nausea, diaphoresis, and severe/extreme exhaustion. EKG (normal sinus rhythm without ectopy) and troponin (less than 3) from the emergency department are within normal limits. Chest x-ray shows mild overload pattern. Chem-7 with mild bump in creatinine at 1.33 with a GFR of 67. We will admit him on a heparin drip for unstable angina symptoms with consultation to cardiology Physical Exam General: Alert, In no apparent distress, Oriented x3 HEENT: Atraumatic, Normocephalic Neck: Supple Respiratory: Normal air movement Cardiovascular: Normal pulses, Regular rate/rhythm Capillary refill: <2 Seconds Gastrointestinal: Normal bowel sounds Musculoskeletal: No clubbing, No swelling Integumentary: No rashes Neurological: Normal speech, Normal tone, Normal affect Lymphatics: No axilla or inguinal lymphadenopathy Hospital Course: Mr. Pulido is a 48-year-old gentleman with a past medical history of hypertension, hyperlipidemia, CAD with PCI x 2. He sees Dr. Ramos in [place] and his medications were obtained from his pharmacy registry. He states he had a echocardiogram in [place] 1 month ago and it was said to be normal. Mr. Pulido presented to the emergency department today with a complaint of chest pain that was exactly as he felt when he had his first heart attack. He was evaluated by cardiology, had a nuclear med stress test, was negative for acute ischemia. Tolerating diet, stable to discharge home, follow-up with cardiology, follow-up with primary care 1 to 2 weeks Assessment Hypertension-reduce metoprolol to 25 daily Hyperlipidemia continue antilipid Chest pain negative stress test Follow-up with cardiology after discharge Continue home medicines as previously prescribed GOAL: Clear understanding of disease process INSTRUCTIONS: Physician Discharge Instructions: -Follow-up with PCP in 1 to 2 weeks -Please call Dr. Rodríguez at [phone] if any questions regarding hospital stay -Please call nursing station at [phone] if any nursing or medication questions -Return to the emergency room if symptoms worsen Diet: ADA, low sodium Activity: Fall precautions Vital Signs/Physical Exam: Temp Pulse Resp BP Pulse Ox 97.0 F 62 16 115/73 92 01/02/24 12:00 01/02/24 12:00 01/02/24 12:00 01/02/24 12:00 01/02/24 12:00 Laboratory Data at Discharge: WBC 7.00 thou/uL (4.3-10.9) 01/02/24 04:19 Hgb 15.9 g/dL (13.6-17.9) 01/02/24 04:19 Hct 45.8 % (39.6-49.0) 01/02/24 04:19 Plt Count 222 thou/uL (152-406) 01/02/24 04:19 APTT 63.7 SECONDS (24.3-36.9) H 01/02/24 04:19 Sodium 140 mEq/L (136-145) 01/02/24 04:19 Potassium 4.7 mEq/L (3.5-5.1) 01/02/24 04:19 BUN 21 mg/dL (7-18) H 01/02/24 04:19 Creatinine 1.22 mg/dL (0.70-1.30) 01/02/24 04:19 Glucose 110 mg/dL (74-106) H 01/02/24 04:19 Magnesium 2.0 mg/dL (1.6-2.4) 12/31/23 15:20 Triglycerides 99 mg/dL (<150) 12/31/23 18:11 Cholesterol 90 mg/dL (<200) 12/31/23 18:11 HDL Cholesterol 43 mg/dL (40-60) 12/31/23 18:11 Cholesterol/HDL Ratio 2.09 12/31/23 18:11 Home Medications: Aspirin [Aspirin EC] 81 mg PO DAILY 04/19/23 Atorvastatin Calcium [Lipitor] 80 mg PO BEDTIME 04/19/23 Ezetimibe 10 mg PO DAILY 04/19/23 Omeprazole Magnesium [Prilosec Otc] 40 mg PO DAILY 04/19/23 Metoprolol Succinate 25 mg PO DAILY 30 Days #30 tab 01/02/24 New Medications: Metoprolol Succinate 25 mg PO DAILY 30 Days #30 tab Diet: AHA Followup: [facility] [Primary Care Provider] - Time spent managing pt's care (in minutes): 55
--- NOTE | 2024-01-05 12:13 | EKG ---
Test Date: 2023-12-31 Test Time: 15:11:01 Operations Research Engineer: KARINA MEASUREMENT RESULTS: Intervals: Rate: 77 PA: 176 QRSD: 76 QT: 358 QTc: 405 [place]: P: 52 PA: 176 QRS: 70 T: 69 INTERPRETIVE STATEMENTS: Normal sinus rhythm Low voltage QRS Borderline ECG Compared to ECG 04/19/2023 16:01:26 No significant changes Electronically Signed On 01-05-24 11:58:42 CDT by Rehan Raymond
== END 2024-01-02 13:58 | disposition home or self-care (01) | DRG 303 ==
LOC: ER 14:56 → ERHOLD 16:21 → 2ND 16:54
PROVIDERS: ADMIT Internal Medicine Sleep Medicine; ATTEND Hospitalist
DX: I25.118 Atherosclerotic heart disease of native coronary artery with other forms of angina pectoris (principal); I10 Essential (primary) hypertension; E78.5 Hyperlipidemia, unspecified; E87.70 Fluid overload, unspecified; I25.2 Old myocardial infarction; F17.210 Nicotine dependence, cigarettes, uncomplicated; Z95.1 Presence of aortocoronary bypass graft; Z79.82 Long term (current) use of aspirin; Z79.02 Long term (current) use of antithrombotics/antiplatelets; Z91.148 Patient's other noncompliance with medication regimen for other reason; Z79.899 Other long term (current) drug therapy
CPT/HCPCS: 36415; 71045; 78452; 80048; 80061; 83735; 83880; 84484; 85025; 85730; 93005; 93017; 96374; 96375; 99285; A9500; J1644; J2405; J2470